=== PATIENT | male | born 1955 | race Caucasian/White ===

== ENCOUNTER 2024-12-17 14:54 | Emergency (ER) | payer MEDICARE, MEDICAID, SELFPAY ==
[2024-12-17 15:06] VITALS: BP 190/90; PULSE 90; O2SAT 98
[2024-12-17 15:15] VITALS: BP 136/63; PULSE 74; RESP 18; TEMP 36.8; O2SAT 97; BMI 19.8
--- NOTE | 2024-12-17 15:22 | ED_ITS ---
HPI - General Adult General Chief complaint: General Medical Stated complaint: RECTAL PAIN,HEMORRHOIDS PER EMS Time Seen by Provider: 12/17/24 23:55 Source: patient and other ([facility] ED visit 12/14/2024 and 12/17/2024) Mode of arrival: EMS Limitations: no limitations History of Present Illness ED Provider: Dr. Onofre Alfaro HPI narrative: 69-year-old male with a history coronary artery disease status post PCI, hyperlipidemia, hypertension, major depressive disorder, mood disorder, polysubstance use disorder (ETOH, opiates on Suboxone), bladder CA status post TURBT on 07/31/2025, currently undergoing chemotherapy, prior gastric perforation, known AAA, GERD, alcohol use disorder in remission, hemorrhoids who presents emergency department for evaluation of hemorrhoid pain, hemorrhoid bleeding and requesting admission [facility]. The patient was seen earlier today on 12/17/2024 at [facility] for evaluation of bleeding hemorrhoids, hemorrhoid pain and requesting to go to [facility]. I did review to records from [facility] ED visits from 12/14/2024 and from 12/17/2024. On his 1st visit he did have a physical therapy evaluation that has felt that he did not require acute rehab and was discharged home. On the 2nd visit on 12/17/2024 the note states that they did speak to their case management and he did not qualify for rehab and he was discharged. When patient got in the [facility] parking lot, he states that he was having a panic attack and called 911. He requested coming to [facility] for evaluation. He told me that his [id number] got him into the [facility]. He states he can not go home this evening because if he does, he will just return to the emergency department secondary to a panic attack. The patient does take diazepam 5 mg b.i.d.. He is requesting his outpatient medications therefore I ordered diazepam 5 mg orally, tamsulosin 0.4 mg orally and atorvastatin 20 mg orally. I did review the patient's 2 previous [facility] ED visits. Related Data Home Medications ?Medication ?Instructions ?Recorded ?Confirmed amlodipine 10 mg tablet 10 mg PO DAILY 12/18/24 12/18/24 atenolol 50 mg tablet 50 mg PO DAILY 12/18/24 12/18/24 atorvastatin 80 mg tablet 80 mg PO DAILY 12/18/24 12/18/24 buprenorphine 4 mg-naloxone 1 mg 0.5 film sublingual BID 12/18/24 12/18/24 sublingual film (Suboxone) carisoprodol 350 mg tablet 350 mg PO QID PRN pain 12/18/24 12/18/24 diazepam 5 mg tablet 5 mg PO BID PRN Anxiety 12/18/24 12/18/24 lidocaine 5 % topical cream 1 appl topical TID PRN Pain 12/18/24 12/18/24 phenylephrine 0.25 %-pramoxine 1 1 appl OK QID PRN Hemorrhoids 12/18/24 12/18/24 %-glycerin-wh.petrolatum rectal cream (Hemorrhoidal Cream) tamsulosin 0.4 mg capsule 0.4 mg PO DAILY 12/18/24 12/18/24 Allergies Allergy/AdvReac Type Severity Reaction Status Date / Time No Known Allergies Allergy Verified 12/17/24 15:17 [No Known Allergies*] Review of Systems 2 Review of Systems: Yes all other systems are reviewed and are negative [facility] Past Medical History [facility] Narrative: Social history: He lives at home alone. He denies tobacco and alcohol use. He does smoke marijuana for his anxiety. Social History Social History Smoked in Last 30 Days: No Use of substances other than those prescribed or required for medical reasons: No Advance Directives: No Advance Directives Information Provided: Yes Do you have a plan to hurt others: No Plan Physical Exam ED Vital Signs: Vital Signs - 24 hr 12/18/24 21:47 12/19/24 06:00 12/19/24 07:44 Temperature 98.5 F 97.8 F 98.1 F Pulse Rate 97 89 71 Respiratory Rate 16 17 17 Blood Pressure 120/66 128/72 117/65 Pulse Oximetry 97 98 98 Oxygen Delivery Method Room Air Room Air Room Air 12/19/24 08:32 12/19/24 09:22 12/19/24 14:00 Temperature 98.3 F Pulse Rate 73 Respiratory Rate 19 Blood Pressure 117/65 117/65 121/64 Pulse Oximetry 98 Oxygen Delivery Method Room Air BMI result Body Mass Index 19.8 Vital signs revealed an elevated blood pressure otherwise unremarkable Exam: General: Awake, alert in no distress, patient is very anxious Head: Normocephalic, atraumatic EENT: PERRL, Lids normal, sclera normal, conjunctiva normal, nose normal , ears normal, throat without erythema or exudates Neck: Supple, no adenopathy Lung: breath sounds symmetric, no wheezing, rales or rhonchi Chest: symmetric movement, nontender Heart: regular rate and rhythm, normal S1, S2 no murmurs or rubs Abdomen: soft, non-tender, nondistended, normal bowel sounds Rectal: patient has 1 hemorrhoid which is tender, in his not actively bleeding, hemorrhoid in his soft and not thrombosed, patient had brown stool which was Hemoccult negative Back: no vertebral tenderness, no CVAT Extremities: no deformities, moves all extremities symmetrically Neuro: Awake, alert, oriented, normal speech, cranial nerves intact, moves all extremities symmetrically Psych: Pleasant, anxious, cooperative Course Course Course Narrative: RME: 69 yold male presents to the ED requesting [facility]. patient has a bed awating him at the rehab, but could not get there. patient seen at [facility] today and was dsicahrged and called ambulance to bring him to [facility] Reevaluation(s) Reevaluation #1: Time: 08:23 Date: 12/19/24 Provider: JUAN PABLO Mejia Patient in physician observation for case management needs. case management has reached out to [facility] and they do not have a bed available for patient. Physical therapy has evaluated patient - no therapy recommendations at this time. No acute events reported overnight.? No current issues or complaints. VS stable. Patient is pending CM eval/disposition. Will continue to monitor. 12/19/24 [id number] JUAN PABLO Mejia from care team has evaluated and cleared patient. He does not meet criteria for admission. She feels he is safe for discharge. Please refer to her note for further details. I spoke with Jesi from case management who offered to arrange VNA services for patient tomorrow morning. patient initially agreeable. Now declining and would like to be discharged home. He is currently on the phone with his ride who is on his way to get him. His workup is reassuring. I have reviewed all labs /urine results. Unremarkable. I see no reason why patient cannot be discharged at this time. He has remained stable. alert, oriented and capable of making his own decisions. Advised patient to continue all home meds as prescribed and follow up with outpatient providers as planned. He is stable for discharge at this time. Physician observation ended at 1645. Medications Administered Generic Name Dose Route Start Last Admin Trade Name Joshua PRN Reason Stop Dose Admin Amlodipine Besylate 10 mg 12/19/24 09:00 12/19/24 08:32 Amlodipine Besylate 10 Mg Tablet PO 10 mg DAILY ANTONINA Administration Protocol Atenolol 50 mg 12/19/24 09:00 12/19/24 09:22 Atenolol 50 Mg Tablet PO 50 mg DAILY ANTONINA Administration Protocol Atorvastatin Calcium 80 mg 12/19/24 09:00 12/19/24 08:32 Atorvastatin Calcium 80 Mg Tablet PO 80 mg DAILY ANTONINA Administration Buprenorphine/Naloxone 1 film 12/18/24 21:00 12/19/24 08:33 Buprenorphine/Naloxone 2/0.5mg Film SUBLINGUAL 1 film BID ANTONINA Administration Diazepam 5 mg 12/18/24 20:31 12/19/24 05:26 Diazepam 5 Mg Tablet PO 5 mg BID PRN Administration Anxiety Lidocaine HCl 1 appl 12/18/24 20:31 12/19/24 16:34 Lidocaine 4 % Cream Kit TOPICAL 1 appl TID PRN Administration Pain, Mild (Pain Scale 1-3) Tamsulosin HCl 0.4 mg 12/19/24 09:00 12/19/24 08:33 Tamsulosin Hcl 0.4 Mg Capsule PO 0.4 mg DAILY ANTONINA Administration Discontinued Medications Generic Name Dose Route Start Last Admin Trade Name Joshua PRN Reason Stop Dose Admin Atorvastatin Calcium 20 mg 12/18/24 00:25 12/18/24 00:38 Atorvastatin Calcium 20 Mg Tablet PO 12/18/24 00:26 20 mg ONCE ONE Administration Buprenorphine/Naloxone 1 film 12/18/24 10:28 12/18/24 11:26 Buprenorphine/Naloxone 4/1 Mg Film SUBLINGUAL 12/18/24 10:29 1 film ONCE ONE Administration Diazepam 2 mg 12/18/24 00:25 12/18/24 00:38 Diazepam 2 Mg Tablet PO 12/18/24 00:26 2 mg ONCE ONE Administration Tamsulosin HCl 0.4 mg 12/18/24 00:25 12/18/24 00:38 Tamsulosin Hcl 0.4 Mg Capsule PO 12/18/24 00:26 0.4 mg ONCE ONE Administration Medical Decision Making Medical Decision Making MDM Narrative: 69-year-old male with a history coronary artery disease status post PCI, hyperlipidemia, hypertension, major depressive disorder, mood disorder, polysubstance use disorder (ETOH, opiates on Suboxone), bladder CA status post TURBT on 07/31/2025, currently undergoing chemotherapy, prior gastric perforation, known AAA, GERD, alcohol use disorder in remission, hemorrhoids who presents emergency department for evaluation of hemorrhoid pain, hemorrhoid bleeding and requesting admission to [facility] [place]. The patient was seen earlier today on 12/17/2024 at [facility] for evaluation of bleeding hemorrhoids, hemorrhoid pain and requesting to go to [facility] facility. I did review to records from [facility] ED visits from 12/14/2024 and from 12/17/2024. On his 1st visit he did have a physical therapy evaluation that has felt that he did not require acute rehab and was discharged home. On the 2nd visit on 12/17/2024 the note states that they did speak to their case management and he did not qualify for rehab and he was discharged. When patient got in the [facility] parking lot, he states that he was having a panic attack and called 911. He requested coming to [facility] for evaluation. He told me that his ywjpen-rq-ngp got him into the [facility]. He states he can not go home this evening because if he does, he will just return to the emergency department secondary to a panic attack. The patient does take diazepam 5 mg b.i.d.. He is requesting his outpatient medications therefore I ordered diazepam 5 mg orally, tamsulosin 0.4 mg orally and atorvastatin 20 mg orally. Vital signs were unremarkable. Exam is consistent with anxiety and a non thrombosed, nonbleeding hemorrhoid. Differential diagnosis: ?Includes but is not limited to anxiety, panic attack, thrombosed hemorrhoid, bleeding hemorrhoids Course: 00:28 Start physician observation Patient's exam is consistent with anxiety and a nonthrombosed, nonbleeding hemorrhoid. I ordered his outpatient medications: Diazepam 5 mg, atorvastatin 20 mg and tamsulosin 0.4 mg orally. The patient will be kept in the emergency department on physician observation until case management can evaluated in the morning to determine if he actually has a bed at [facility]. 07:55 Physician observation continued At the end of my shift, patient's care was turned over to my colleague, Dr. Leija Differential Diagnosis Differential Diagnoses: The differential diagnosis associated with the presentation includes Admission/Observation Consideration of admission/observation: Escalation of care including admission/observation considered (No) Lab Data 12/19/24 12:56 12/19/24 12:56 Labs: Lab Results 12/18/24 12/19/24 12/19/24 Range/Units 11:27 12:56 13:07 WBC 7.2 (4.8-10.8) X10*3/uL RBC 4.13 L (4.60-5.80) X10*6/uL Hgb 13.6 L (14.0-18.0) g/dl Hct 37.5 L (42.0-52.0) % MCV 90.8 (80.0-98.0) fL MCH 32.9 (27.0-33.0) pg MCHC 36.3 H (31.0-36.0) g/dl RDW 11.9 (11.0-16.0) % Plt Count 178 (160-400) X10*3/uL MPV 9.3 L (9.4-12.4) fL Immature Gran % (Auto) 0.1 (0.0-0.4) % Neut % (Auto) 62.8 (45-73) % Lymph % (Auto) 27.8 (20-40) % [place] % (Auto) 6.6 (2-11) % Eos % (Auto) 2.0 (0-4) % Baso % (Auto) 0.7 (0-2) % Lymph # (Auto) 2.0 (1.2-4.9) X10*3/uL [place] # (Auto) 0.5 (0.1-1.2) X10*3/uL Eos # (Auto) 0.1 (0.0-0.4) X10*3/uL Baso # (Auto) 0.1 (0.0-0.2) X10*3/uL Abs Immat Gran (auto) 0.01 (0.00-0.03) X10*3/uL Absolute Neuts (auto) 4.5 (2.0-8.3) x10*3/uL Absolute Nucleated RBC 0.000 (0.0-0.012) X10*3/uL Nucleated RBC % (auto) 0.0 (0.0-0.2) /100WBC Sodium 138 (135-145) mmol/L Potassium 4.0 (3.3-5.1) mmol/L Chloride 101 (96-108) mmol/L Carbon Dioxide 31 H (22-29) mmol/L Anion Gap 10 L (12-20) BUN 9 (9-16) mg/dL Creatinine 0.65 (0.5-1.4) mg/dL Estim Creat Clear Calc 89.7 Estimated GFR > 60 Random Glucose 167 H (60-115) mg/dL Calcium 9.5 (8.4-10.2) mg/dL Total Bilirubin 0.3 (0.0-1.0) mg/dL AST 28 (5-37) U/L ALT 27 (0-40) U/L Alkaline Phosphatase 89 (39-117) U/L Total Protein 6.6 (6.5-8.0) g/dL Albumin 4.2 (3.5-5.0) g/dL Urine Color Yellow Urine Appearance Turbid Urine pH 8.0 (5.0-9.0) Ur Specific [place] 1.010 (1.005-1.025) Urine Protein Negative (Neg-Trace) mg/dL Urine Glucose (UA) Negative (Negative) mg/dL Urine Ketones Negative (Negative) mg/dL Urine Blood Negative (Negative) Urine Nitrite Negative (Negative) Ur Leukocyte Esterase Trace H (Negative) Urine RBC 0-2 (0-2) /HPF Urine WBC 6-10 H (0-5) /HPF Ur Squamous Epith Cells 0-2 (0-2) /HPF Urine Bacteria 3+ (None Seen) Hyaline Casts 0-2 (0-2) /LPF Urine Opiates Screen Not Detected (Not Detect) Ur Buprenorphine Scrn Positive H (Not Detect) ng/mL Ur Oxycodone Screen Not Detected (Not Detect) ng/mL Urine Methadone Screen Not Detected (Not Detect) ng/mL Urine Fentanyl Screen Not Detected (Not Detect) Ur Barbiturates Screen Not Detected (Not Detect) Ur Phencyclidine Scrn Not Detected (Not Detect) Ur Amphetamines Screen Not Detected (Not Detect) U Benzodiazepines Scrn POSITIVE H (Not Detect) Urine Cocaine Screen Not Detected (Not Detect) U Marijuana (THC) Screen POSITIVE H (Not Detect) Influenza Type A (PCR) NEGATIVE (Negative) Influenza Type B (PCR) NEGATIVE (Negative) RSV RNA Qual (PCR) NEGATIVE (Negative) SARS-CoV-2 RNA (RT-PCR) NEGATIVE (Negative) Discharge Plan Discharge Clinical Impression: Anxiety, Bladder cancer, External hemorrhoids, Panic attack Patient Disposition: Home, Self-Care Instructions: Bladder Cancer (DC), Anxiety (ED) Additional Instructions: Your workup is reassuring. You were evaluated by physical therapy and do not meet criteria for therapy. You have been seen and cleared by care team/ psych. Case management has offered to arrange VNA services for you however you are declining and would like to be discharged. Please continue all home medications as prescribed. Follow up with your outpatient providers as planned. Prescriptions: No Action carisoprodol 350 mg tablet 350 mg PO QID PRN (Reason: pain) atorvastatin 80 mg tablet 80 mg PO DAILY lidocaine 5 % cream 1 appl topical TID PRN (Reason: Pain) tamsulosin 0.4 mg capsule 0.4 mg PO DAILY amlodipine 10 mg tablet 10 mg PO DAILY atenolol 50 mg tablet 50 mg PO DAILY diazepam 5 mg tablet 5 mg PO BID PRN (Reason: Anxiety) buprenorphine-naloxone [Suboxone] 4-1 mg film 0.5 film sublingual BID Hemorrhoidal Cream 0.25-1 % Cream 1 appl OK QID PRN (Reason: Hemorrhoids) Referrals: Randy Elise MD [Primary Care Provider] - Print Language: Ivorian
[2024-12-18] VITALS (7 sets, daily range): BP systolic 120–163; BP diastolic 60–90; PULSE 82–120; RESP 16–20; TEMP 36.5–36.9; O2SAT 97–100
[2024-12-18] MEDS: Atorvastatin Calcium 20 MG TABLET PO (00:38)
[2024-12-18] MEDS: Tamsulosin HCL 0.4 MG CAPSULE PO (00:38)
[2024-12-18] MEDS: diazePAM 2 MG TABLET PO (00:38)
--- NOTE | 2024-12-18 07:53 | PC.NURSE ---
Pt is sleeping. NAd. CHEST RISE noted. Skin pwd.
--- NOTE | 2024-12-18 09:16 | PC.NURSE ---
Pt has been ambulatory this am, taking his own home meds and eating breakfast. Awaits CM consult.
--- NOTE | 2024-12-18 10:44 | PC.NURSE ---
Pt has on and off toilet repeatedly. Reports self-disempacting and then flushed gloves down the toilet. Pt has a hemmroid. Pt has been increasing requests for wiping anus. Also reports dizziness but is able to ambulate once told that his bed will be brought to him in hallway.
--- NOTE | 2024-12-18 10:59 | MHC.CM.ED ---
Addendum entered by Jesi Johnson 12/19/24 12:54: Office visit note provided from Dr Villegas's office. Patient was last seen on 11/29 for his 6th and final chemo that was instilled in the bladder for 2 hours. Original Note: Received case management consult overnight from Dr Alfaro. Patient was in [facility] ER and was d/c'd home. Patient felt an anxiety attack come on and came to [facility]. Patient stated he has a bed at [facility]. Referral made to [facility]. [facility] does not have a bed available for him. Met with patient in regards to discharge planning. Patient states he was supposed to be sent to rehab from [facility] multiple times but hasn't been. Patient made aware [facility] does not have a bed. Patient states he has cancer and can't go home. Physical therapy eval is pending. PCP verified at [facility]. Patient receives suboxone from [facility] in [facility]. States he has been a patient there for 7 years. Patient aware placement may be difficult to find due to suboxone. Patient aware placement can be anywhere in the state of [facility]. Patient verbalizes understanding and is agreeable. [facility]. Continue to monitor for d/c needs.
[2024-12-18] MEDS: Buprenorphine/Naloxone 4/1 mg FILM 1 FILM SUBLINGUAL (11:26)
[2024-12-18 12:12] LABS: Influenza A PCR NEGATIVE (Negative); Influenza B PCR NEGATIVE (Negative); Resp Syncy Virus RNA Qual PCR NEGATIVE (Negative); SARS COV2 PCR INHOUSE NEGATIVE (Negative)
--- NOTE | 2024-12-18 18:25 | PHA.MEDREC ---
Addendum entered by Ivone Duncan [facility] 12/18/24 20:21: reviewed by [facility] Addendum entered by Sherry Baldwin 12/18/24 18:56: Went to speak with patient about the stool softener and the patient was adamant that it was a stool softener starting with a T and stated he got it prescribed when he was recently discharged from [facility] with a witch-pascual liquid and was filling them at [facility] on [address] in [place]. I called [facility] and they confirmed they received a Miralax and Witch-pascual liquid from [facility] but they had to order it for the patient and stated the patient has not picked them up yet. Original Note: Pharmacy Consult ? Medication Reconciliation Pharmacy has completed the medication reconciliation. Spoke with patient who was very anxious and all over the place but we managed to be able to confirm his medications. Patient confirmed he his taking the Suboxone 4mg-1mg films and states he cuts the films in half and takes 1/2 film (2mg) twice a day. Patient also stated he is taking a stool softener that started with a T, but could not think of the name at this time. When asking patient when he last took his medications, the patient got very confused and starting rambling on about his Dr and how his stay here has been.
[2024-12-19] MEDS: diazePAM 5 MG TABLET PO (05:26)
--- NOTE | 2024-12-19 05:30 | PC.NURSE ---
Pt wakes up and reports taking own meds from home this morning. Pt advised not to so as we will medicate pt from the pyxis. Pt states having home medication bottles and was not aware that pharmacy hold meds. Six medication bottles to be given to pharmacy. Pt is aware of plan of care. Pt then medicated as per OCT. Pt tolerated well.
[2024-12-19 06:00] VITALS: BP 128/72; PULSE 89; RESP 17; TEMP 36.6; O2SAT 98
[2024-12-19 07:44] VITALS: BP 117/65; PULSE 71; RESP 17; TEMP 36.7; O2SAT 98
[2024-12-19 08:32] VITALS: BP 117/65
[2024-12-19] MEDS: Atorvastatin Calcium 80 MG TABLET PO (08:32)
[2024-12-19] MEDS: amLODIPine Besylate 10 MG TABLET PO (08:32)
[2024-12-19] MEDS: Tamsulosin HCL 0.4 MG CAPSULE PO (08:33)
[2024-12-19] MEDS: Buprenorphine/Naloxone 2/0.5mg FILM 1 FILM SUBLINGUAL (08:33)
--- NOTE | 2024-12-19 09:14 | MHC.CM.ED ---
Patient remains in ER overflow. Spoke with LOLI Mercedes CM at [facility]. Mago met with patient on 12/17. Patient was adament that he needed to go to [facility]. Mago explained there wasn't a need for rehab and that he could call them himself to get on their LTC list. Patient requested a hospice referral for end of life care for cancer. Patient has a diagnosis of Bladder cancer. Had a TURP approximately 6 months ago and just finished chemo treatment. Patient needs to follow up outpatient with his oncologist but is not terminal at this time. Patient verbalized understanding at that time and d/c'd home. T/W is attempted to identify oncologist and plan of care. Continue to monitor for d/c needs.
[2024-12-19 09:22] VITALS: BP 117/65
[2024-12-19] MEDS: atenoloL 50 MG TABLET PO (09:22)
--- NOTE | 2024-12-19 12:41 | MHC.CM.ED ---
Patient remains in ER overflow. Received notification that patient does not have [facility]. Patient has [facility] Premium, which does not cover half-way stays at SNF. Met with patient to explain this information. Patient found ambulating independently in the overflow unit from the bathroom with a steady gait. T/W explained physical therapy eval was completed, which did not indicate a need for skilled services. Also explained status of [facility]. Also explained patient could privately pay for SNF placement cost and expectations. Patient stated they can bill me. T/W explained that was not a possibility. Any long-term facility would want payment up front. Patient requested T/W speak to his sign language translator, Rashard Barragan. Spoke with Rashard via telephone at [phone]. Rashard confirms he is patient's pro kemal sign language translator that is helping him. T/W explained patient was at [facility] and was d/c'd. Explained patient stated Rashard would be able to help with funds. Rashard requesting to know who felt SNF placement was not appropriate. T/W explained patient did not have a Medicare Rashard feels patient needs a psych consult and is not well . Rashard states patient has been going through things and has been calling non-stop for the past month. Rashard thinks he's paranoid and might have dementia. T/W explained someone with dementia doesn't need they need inpatient psych. Rashard stated Have psych see him and then we'll talk. T/W was passed onto Katelynn ALMEIDA. Care Team Consult ordered. Spoke with Susi of Care Team to provider information on patient. Continue to monitor for d/c needs.
[2024-12-19 13:04] LABS: MANUAL DIFF FLAG NO
[2024-12-19 13:10] LABS: Basophils Absolute Auto 0.1 X10*3/uL (0.0-0.2); Basophils Percent Auto 0.7 % (0-2); Eosinophils Absolute Auto 0.1 X10*3/uL (0.0-0.4); Hematocrit 37.5 % (42.0-52.0); Hemoglobin 13.6 g/dl (14.0-18.0); Imm Gran Abs Auto 0.01 X10*3/uL (0.00-0.03); Imm Gran Pct Auto 0.1 % (0.0-0.4); Lymphocytes Percent Auto 27.8 % (20-40); Mean Corpuscular HGB Conc 36.3 g/dl (31.0-36.0); Mean Corpuscular Hemoglobin 32.9 pg (27.0-33.0); Mean Corpuscular Volume 90.8 fL (80.0-98.0); Mean Platelet Volume 9.3 fL (9.4-12.4); Monocytes Absolute Auto 0.5 X10*3/uL (0.1-1.2); Monocytes Percent Auto 6.6 % (2-11); Neutrophils Absolute Auto 4.5 x10*3/uL (2.0-8.3); Neutrophils Percent Auto 62.8 % (45-73); Platelet Count 178 X10*3/uL (160-400); Red Blood Count 4.13 X10*6/uL (4.60-5.80); Red Cell Distribution Width 11.9 % (11.0-16.0); White Blood Count 7.2 X10*3/uL (4.8-10.8)
[2024-12-19 13:20] LABS: Appearance Urine Turbid; Color Urine Yellow; Glucose Urine UA Negative (Negative); Leukocyte Esterase Urine Trace (Negative); Nitrite Urine Negative (Negative); UMIC TRIGGER UACC YES; Urine Blood Negative (Negative); Urine Ketones Negative (Negative); Urine Protein Negative (Neg-Trace)
[2024-12-19 13:20] LABS: Alanine Aminotransferase 27 U/L (0-40); Albumin Level 4.2 g/dL (3.5-5.0); Alkaline Phosphatase 89 U/L (39-117); Anion Gap 10 (12-20); Aspartate Amino Transferase 28 U/L (5-37); Bilirubin Total 0.3 mg/dL (0.0-1.0); Blood Urea Nitrogen 9 mg/dL (9-16); Calcium 9.5 mg/dL (8.4-10.2); Carbon Dioxide 31 mmol/L (22-29); Chloride 101 mmol/L (96-108); Creatinine Clr Calc Pharmacy 89.7; Estimated Glomerular Filt Rate > 60; Glucose Random 167 mg/dL (60-115); Sodium 138 mmol/L (135-145); Total Protein 6.6 g/dL (6.5-8.0)
[2024-12-19 13:28] LABS: Amphetamine Screen Urine Not Detected (Not Detect); Barbiturates, Urine Not Detected (Not Detect); Benzodiazepines Screen Urine POSITIVE (Not Detect); Buprenorphine Scr Positive (Not Detect); Cannabinoid Screen Urine POSITIVE (Not Detect); Cocaine Screen Urine Not Detected (Not Detect); Fentanyl, urine Not Detected (Not Detect); Methadone Screen, Urine Not Detected (Not Detect); Opiate Screen Urine Not Detected (Not Detect); Oxycodone Screen Urine Not Detected (Not Detect); Phencyclidine Screen Urine Not Detected (Not Detect)
[2024-12-19 13:30] LABS: Bacteria Urine 3+ (None Seen); Hyaline Casts Urine 0-2 /LPF (0-2); RBC Urine 0-2 /HPF (0-2); Squamous Epithelial Cell Urine 0-2 /HPF (0-2); UACC Culture Trigger YES
--- NOTE | 2024-12-19 13:33 | PC.NURSE ---
Received a call from Tha Mckeon from [facility] inquiring about Rub[facility] D/C plan. I asked and received verbal consent from [facility] to provide the [facility] [employer] Tha name and phone number to discuss his D/C plan and possible resumption of Suboxone therapy.
[2024-12-19 14:00] VITALS: BP 121/64; PULSE 73; RESP 19; TEMP 36.8; O2SAT 98
--- NOTE | 2024-12-19 14:15 | MHC.CM.ED ---
Received request to call Tha Mckeon of [facility] via telephone at [phone]. Verbal consent given by patient. Spoke with Tha. Tha verifies patient has been active with them for 7 years. Tha has been trying to arrange VNA, MOW and home health aides. Patient's PCP's office has not been willing to arrange VNA because patient has not seen him recently. [facility] was scheduled to meet with patient on 12/12. Patient had to reschedule. Tha is not sure when that new appointment is scheduled for. Tha feels patient has been more forgetful recently and has been misplacing prescriptions, is unable to to remember that his chemo treatment is complete and he needs to follow up outpatient and has been overall anxious in general. T/w explained Crisis eval would be completed. Also explained patient passed physcial therapy eval and that patient has been ambulating independently in overflow. T/W also explained patient has [facility] Premium only. Patient would require 5 years of bank statements and other documents that would be [facility]. Tha verbalized understanding. Continue to monitor for d/c needs.
--- NOTE | 2024-12-19 14:52 | MHC.CARE ---
Pt does not meet the criteria for IPLOC and is declining a referral to OP services at this time. Pt will be discharged home. Provider in agreement.
[2024-12-19] MEDS: Lidocaine 4 % Cream KIT 1 APPL TOPICAL (16:34)
[2024-12-19 16:48] VITALS: BP 121/64; PULSE 73; RESP 19; TEMP 36.8; O2SAT 98
--- NOTE | 2024-12-19 17:53 | PC.NURSE ---
Addendum entered by Sarai Cintron RN 12/19/24 18:23: Pt Medication Storage Record completed with SARAH Carvalho. Pts friend Rubén Delgado arrives at [facility] prior to medications being delivered to Pharmacy Dpt. Rubén presents positive ID for medication retrieval. Copy of Rubén Delgado's ID attached to Pt medication storage record and placed to be filed. Custody of Pts medications relinquished to Rubén Delgado per request of Pt. Original Note: Pt d/c'd without his personal medication supply. Call placed to Pt and Pt reports he is aware. Pt states he is unable to leave the house because he has cancer and plans to have a friend by the name of Rubén Delgado. Patient advised friend will need valid ID present at time of picker tender helper in order to have meds released. Medications will be inventoried and sent to pharmacy for safe keeping.
--- NOTE | 2024-12-20 07:39 | MHC.CM.ED ---
Addendum entered by Jesi Johnson 12/20/24 10:09: [facility] is only agency that is able to accept patient. Original Note: Patient was d/c'd home last night. VNA will be arranged for mcc and behavior health assistance. Referral broadcasted.
--- NOTE | 2024-12-20 12:13 | MHC.CM.ED ---
Received notification that [facility] is banned from their agency. Waiting to hear if any other agency is able to accept him.
--- NOTE | 2024-12-23 07:32 | MHC.CM.ED ---
Patient [facility] has been able to accept patient. CM medical assistant supervisor will be asked to reach out to PCP's office for follow up.
== END 2024-12-19 16:58 | disposition home or self-care (01) ==
PROVIDERS: Physician Assistant Medical; Emergency Provider Emergency Medicine Emergency Medical Services; PCP Internal Medicine
DX: F41.0 Panic disorder [episodic paroxysmal anxiety] (principal); F41.9 Anxiety disorder, unspecified; K64.4 Residual hemorrhoidal skin tags; C67.9 Malignant neoplasm of bladder, unspecified; Z03.818 Encounter for observation for suspected exposure to other biological agents ruled out; F11.20 Opioid dependence, uncomplicated; Z79.899 Other long term (current) drug therapy
CPT/HCPCS: 0241U; 36415; 80053; 80307; 81001; 85025; 87086; 97161; 99285; S9485

== ENCOUNTER 2024-12-25 15:52 | Inpatient (IN) | payer MEDICARE, OTHER, SELFPAY ==
[2024-12-25 16:04] VITALS: BP 132/76; PULSE 86; O2SAT 96
[2024-12-25 16:08] VITALS: BP 141/70; PULSE 67; RESP 14; TEMP 36.6; O2SAT 96; BMI 19.5
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
[2024-12-25 17:04] LABS: MANUAL DIFF FLAG NO
[2024-12-25 17:06] LABS: Basophils Absolute Auto 0.1 X10*3/uL (0.0-0.2); Basophils Percent Auto 0.7 % (0-2); Eosinophils Absolute Auto 0.1 X10*3/uL (0.0-0.4); Eosinophils Percent Auto 1.2 % (0-4); Hematocrit 37.4 % (42.0-52.0); Hemoglobin 13.3 g/dl (14.0-18.0); Imm Gran Abs Auto 0.03 X10*3/uL (0.00-0.03); Imm Gran Pct Auto 0.4 % (0.0-0.4); Lymphocytes Absolute Auto 2.3 X10*3/uL (1.2-4.9); Lymphocytes Percent Auto 31.5 % (20-40); Mean Corpuscular HGB Conc 35.6 g/dl (31.0-36.0); Mean Corpuscular Hemoglobin 32.8 pg (27.0-33.0); Mean Corpuscular Volume 92.3 fL (80.0-98.0); Mean Platelet Volume 9.2 fL (9.4-12.4); Monocytes Absolute Auto 0.6 X10*3/uL (0.1-1.2); Monocytes Percent Auto 7.8 % (2-11); Neutrophils Absolute Auto 4.3 x10*3/uL (2.0-8.3); Neutrophils Percent Auto 58.4 % (45-73); Platelet Count 193 X10*3/uL (160-400); Red Blood Count 4.05 X10*6/uL (4.60-5.80); Red Cell Distribution Width 11.9 % (11.0-16.0); White Blood Count 7.3 X10*3/uL (4.8-10.8)
[2024-12-25 17:43] LABS: Alanine Aminotransferase 31 U/L (0-40); Albumin Level 4.4 g/dL (3.5-5.0); Anion Gap 10 (12-20); Aspartate Amino Transferase 30 U/L (5-37); Bilirubin Direct 0.1 mg/dL (0.0-0.5); Bilirubin Total 0.3 mg/dL (0.0-1.0); Blood Urea Nitrogen 11 mg/dL (9-16); Calcium 9.6 mg/dL (8.4-10.2); Carbon Dioxide 30 mmol/L (22-29); Chloride 104 mmol/L (96-108); Creatinine Clr Calc Pharmacy 91.1; Estimated Glomerular Filt Rate > 60; Ethanol < 10 mg/dL; Glucose Random 94 mg/dL (60-115); Magnesium 2.1 mg/dL (1.6-2.6); Potassium 4.2 mmol/L (3.3-5.1); Sodium 140 mmol/L (135-145); Total Protein 6.9 g/dL (6.5-8.0)
[2024-12-25 18:07] LABS: Alkaline Phosphatase 78 U/L (39-117)
[2024-12-25 18:09] VITALS: BP 155/75
[2024-12-25] MEDS: LORazepam 1 MG TABLET PO (18:17)
[2024-12-25 19:47] VITALS: BP 104/57; PULSE 70; RESP 19; TEMP 37.1; O2SAT 97
[2024-12-25 20:25] LABS: Amphetamine Screen Urine Not Detected (Not Detect); Barbiturates, Urine Not Detected (Not Detect); Benzodiazepines Screen Urine POSITIVE (Not Detect); Buprenorphine Scr Positive (Not Detect); Cannabinoid Screen Urine POSITIVE (Not Detect); Cocaine Screen Urine Not Detected (Not Detect); Fentanyl, urine Not Detected (Not Detect); Methadone Screen, Urine Not Detected (Not Detect); Opiate Screen Urine Not Detected (Not Detect); Oxycodone Screen Urine Not Detected (Not Detect); Phencyclidine Screen Urine Not Detected (Not Detect)
--- NOTE | 2024-12-25 20:30 | MHC.CARE ---
NIK contacted the care team and indicated that pt will be an expect and they are recommending IPLOC. N will send eval when completed.
[2024-12-25 22:35] VITALS: BP 116/53; PULSE 75; RESP 16; TEMP 36.6; O2SAT 100
[2024-12-26] MEDS: Tamsulosin HCL 0.4 MG CAPSULE PO ×2 (00:18→08:56)
[2024-12-26 06:08] VITALS: RESP 16
--- NOTE | 2024-12-26 08:03 | ECG_ITS ---
Test Reason : ADMISSION Blood Pressure : */* mmHG Vent. Rate : 92 BPM Atrial Rate : 92 BPM P-R Int : 150 ms QRS Dur : 80 ms QT Int : 344 ms P-R-T Axes : 78 78 75 degrees QTcB Int : 425 ms Normal sinus rhythm Minimal voltage criteria for LVH, may be normal variant ( Sokolow-Olivia ) Borderline ECG No previous ECGs available Referred By: Pacheco Tom Electronically Signed By: PETER BRIAN MD
[2024-12-26 08:56] VITALS: BP 115/62; PULSE 92; RESP 16; O2SAT 93
[2024-12-26] MEDS: atenoloL 50 MG TABLET PO (08:56)
[2024-12-26] MEDS: amLODIPine Besylate 10 MG TABLET PO (08:56)
[2024-12-26] MEDS: Buprenorphine/Naloxone 4/1 mg FILM 1 FILM SUBLINGUAL (08:57)
[2024-12-26] MEDS: Atorvastatin Calcium 80 MG TABLET PO (08:57)
[2024-12-26] MEDS: carisoprodoL 350 MG TABLET PO ×2 (09:21→20:46)
[2024-12-26] MEDS: diazePAM 5 MG TABLET PO ×2 (10:09→17:38)
[2024-12-26 12:36] LABS: Appearance Urine Cloudy; Color Urine Yellow; Glucose Urine UA Negative (Negative); Leukocyte Esterase Urine Moderate (2+) (Negative); Nitrite Urine Negative (Negative); Specific Gravity - Urine 1.015 (1.005-1.025); UMIC TRIGGER UACC YES; Urine Blood Negative (Negative); Urine Ketones Trace mg/dL (Negative); Urine Protein Trace mg/dL (Neg-Trace)
[2024-12-26 12:39] LABS: Bacteria Urine 4+ (None Seen); Hyaline Casts Urine 0-2 /LPF (0-2); RBC Urine 0-2 /HPF (0-2); Squamous Epithelial Cell Urine 0-2 /HPF (0-2); UACC Culture Trigger YES; WBC Urine 21-50 /HPF (0-5)
--- NOTE | 2024-12-26 12:42 | PC.NURSE ---
pt has been pleasant and cooperative all morning, in and out of room, played cards with another pt. medicated as ordered, ate breakfast,
--- NOTE | 2024-12-26 13:05 | PHA.MEDREC ---
Addendum entered by Amado Salvador 12/26/24 13:19: reviewed Original Note: Pharmacy Consult ? Medication Reconciliation Pharmacy reviewed the med rec done by nursing. Spoke with patient and he confirmed his medications. Patient stated he cuts his Suboxone 4-2mg films in half and takes 1/2 film BID due to it being too hard taking a full film for him. He stated he takes the Atorvastatin and Tamsulosin tablets at bedtime and nurse had confirmed them as daily.
[2024-12-26 14:04] VITALS: BP 160/85; PULSE 68; RESP 16; TEMP 36.5; O2SAT 98
--- NOTE | 2024-12-26 15:56 | MHC.CLN ---
NUTRITION ROUTINE CONSULT. NO PRIOR WEIGHT HX VIEWED. ASSESSMENT NOTES 34# OR MORE WEIGHT LOSS. BMI=19.5. ADDING ENSURE BID TO PROMOTE NUTRITIONAL INTAKE.
--- NOTE | 2024-12-26 16:03 | MHC.CLN ---
NUTRITION CONSULT FOR DX CANCER WITH 100# WEIGHT LOSS X 12 MONTHS. DIET=REGULAR. ADDING ENSURE TID TO PROVIDE 1050 KCALS, 60 G PROTEIN. DINING SERVICES CAN ASSIST WITH FOOD CHOICES NEEDED.
[2024-12-26 16:14] VITALS: BMI 18.8
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
[2024-12-26] MEDS: Hydrocortisone 2.5 % Rectal Cr 30 GM TUBE 1 APPL PR (18:04)
[2024-12-26] MEDS: Lidocaine 5 % Ointment 35 GM 1 APPL TOPICAL (18:07)
[2024-12-26 20:10] VITALS: BP 115/58; PULSE 73; TEMP 36.5; O2SAT 99
[2024-12-26] MEDS: hydrOXYzine HCL 25 MG TABLET PO (20:46)
[2024-12-27 07:51] VITALS: BP 129/64; PULSE 93; RESP 16; TEMP 36.6; O2SAT 98
[2024-12-27 08:00] LABS: Estimated Average Glucose 117 mg/dL; Hemoglobin A1c % 5.7 % (<6.0); Total Hemoglobin (HGBA1C) 3794.1497 umol/L
[2024-12-27 08:11] LABS: Cholesterol 91 mg/dL (<200); HDL Cholesterol 48 mg/dL (>40); LDL Cholesterol Calculated 31 mg/dL (<100); Triglycerides 63 mg/dL (<150)
[2024-12-27 08:26] LABS: Free T4 (Free Thyroxine) 1.12 ng/dL (0.71-1.85); Thyroid Stimulating Hormone 0.61 uIU/mL (0.32-4.0)
[2024-12-27 08:40] LABS: Folate 14.6 ng/mL (> or = 4.0); Vitamin B12 1038 pg/mL (200-900)
[2024-12-27] MEDS: Atorvastatin Calcium 80 MG TABLET PO (09:14)
[2024-12-27] MEDS: Tamsulosin HCL 0.4 MG CAPSULE PO ×2 (09:14→20:30)
[2024-12-27] MEDS: Buprenorphine/Naloxone 4/1 mg FILM 1 FILM SUBLINGUAL (09:15)
[2024-12-27] MEDS: Lidocaine 5 % Ointment 35 GM 1 APPL TOPICAL ×2 (09:16→18:06)
[2024-12-27 09:26] VITALS: BP 134/72; PULSE 114
[2024-12-27] MEDS: atenoloL 50 MG TABLET PO (09:26)
[2024-12-27] MEDS: amLODIPine Besylate 10 MG TABLET PO (09:26)
[2024-12-27] MEDS: Milk of Magnesia 30 ML ORAL.SUSP PO (10:47)
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
[2024-12-27] MEDS: Hydrocortisone 2.5 % Rectal Cr 30 GM TUBE 1 APPL PR (18:06)
[2024-12-27 20:00] VITALS: BP 113/58; PULSE 68; TEMP 36.6; O2SAT 97
[2024-12-27] MEDS: hydrOXYzine HCL 25 MG TABLET PO (20:30)
[2024-12-27] MEDS: traZODone HCL 50 MG TABLET PO (20:30)
[2024-12-28 07:41] VITALS: BP 127/61; PULSE 74; RESP 16; TEMP 36.9; O2SAT 98
[2024-12-28] MEDS: Atorvastatin Calcium 80 MG TABLET PO (08:36)
[2024-12-28] MEDS: atenoloL 50 MG TABLET PO (08:36)
[2024-12-28] MEDS: amLODIPine Besylate 10 MG TABLET PO (08:37)
[2024-12-28] MEDS: Buprenorphine/Naloxone 2/0.5mg TAB.SUBL 1 TAB SUBLINGUAL (11:07)
--- NOTE | 2024-12-28 13:48 | P.PNPSI_ITS ---
Subjective Subjective Date of Service: 12/28/24 Reason For Visit: SI/depression Interim History: Active on unit. social with peers. Patient reports feeling better than when I got here ; continues to report suicidal ideation, did not disclose plan. denies HI/VH/AH. Rapid speech. rambling at times. Medication Compliance: Yes Side effects from medications: No Mental Status Exam Mental Status Exam Patient Appearance: Appropriate Patient Orientation: Person, Place, Time and Situation Level of Consciousness: Awake and Alert Patient Behavior: Cooperative and Good Eye Contact Mood Description: Depressed Affect Description: Constricted Ability to Follow Directions: Good Speech Pattern: Rambling, Rapid and Loud Hallucinations: None Delusions: Not Present Thought Process: Intact and Racing Thought Content: positive for Intact and positive for Suicidal Ideation Diagnostics Vital Signs (24Hr): Vital Signs - 24 hr 12/27/24 20:00 12/28/24 07:41 Temperature 97.9 F 98.4 F Pulse Rate 68 74 Respiratory Rate 16 Blood Pressure 113/58 L 127/61 Pulse Oximetry 97 98 Oxygen Delivery Method Room Air Room Air BMI result Body Mass Index 18.8 Labs 12/25/24 17:00 12/25/24 17:00 Labs: Laboratory Results - last 48 hr 12/27/24 12/27/24 07:41 07:42 Estimat Average Glucose 117 Hemoglobin A1c % 5.7 Triglycerides 63 Cholesterol 91 LDL Cholesterol, Calc 31 HDL Cholesterol 48 Vitamin B12 1038 H Folate 14.6 TSH 0.61 Free T4 1.12 Medications Medications Current Medications Acetaminophen (Acetaminophen 325 Mg Tablet) 650 mg PO Q6H PRN PRN Reason: Headache/Pain, Scale 1-10 Al Hydroxide/Mg Hydroxide (Magnesium Hydrox/Alum Hydrox 30 Ml Oral.Susp) 30 ml PO Q6H PRN PRN Reason: Heartburn/Nausea Amlodipine Besylate (Amlodipine Besylate 10 Mg Tablet) 10 mg PO DAILY [facility]; Protocol Last Admin: 12/28/24 08:37 Dose: 10 mg Atenolol (Atenolol 50 Mg Tablet) 50 mg PO DAILY [facility]; Protocol Last Admin: 12/28/24 08:36 Dose: 50 mg Atorvastatin Calcium (Atorvastatin Calcium 80 Mg Tablet) 80 mg PO DAILY [facility] Last Admin: 12/28/24 08:36 Dose: 80 mg Buprenorphine/Naloxone (Buprenorphine/Naloxone 2/0.5mg Film) 1 film SUBLINGUAL BID@0600,1500 [facility] Carisoprodol (Carisoprodol 350 Mg Tablet) 350 mg PO QID PRN PRN Reason: Pain, Moderate(Pain Scale 4-6) Last Admin: 12/26/24 20:46 Dose: 350 mg Diazepam (Diazepam 5 Mg Tablet) 5 mg PO BID PRN PRN Reason: Anxiety Last Admin: 12/26/24 17:38 Dose: 5 mg Hydrocortisone (Hydrocortisone 2.5 % Rectal Cr 30 Gm Tube) 1 appl AL BID PRN PRN Reason: Hemorrhoids Last Admin: 12/27/24 18:06 Dose: 1 appl Hydroxyzine HCl (Hydroxyzine Hcl 25 Mg Tablet) 25 mg PO Q6H PRN PRN Reason: mild anxiety Last Admin: 12/27/24 20:30 Dose: 25 mg Lidocaine (Lidocaine 5 % Ointment 35 Gm) 1 appl TOPICAL TID PRN PRN Reason: Pain Last Admin: 12/27/24 18:06 Dose: 1 appl Magnesium Hydroxide (Milk Of Magnesia 30 Ml Oral.Susp) 30 ml PO DAILY PRN PRN Reason: Constipation Last Admin: 12/27/24 10:47 Dose: 30 ml Nicotine Polacrilex (Nicotine Polacrilex 2 Mg Gum) 4 mg BUCCAL Q2H PRN PRN Reason: Nicotine Cravings Tamsulosin HCl (Tamsulosin Hcl 0.4 Mg Capsule) 0.4 mg PO BEDTIME [facility] Last Admin: 12/27/24 20:30 Dose: 0.4 mg Trazodone HCl (Trazodone Hcl 50 Mg Tablet) 50 mg PO BEDTIME MRX1 PRN PRN Reason: Insomnia Last Admin: 12/27/24 20:30 Dose: 50 mg Allergies Allergies Allergy/AdvReac Type Severity Reaction Status Date / Time No Known Allergies Allergy Verified 12/25/24 16:31 [No Known Allergies*] Assessment & Plan Assessment & Plan (1) Suicidal ideation: Status: Acute Code(s): R45.851 - Suicidal ideations (2) Adjustment disorder: Status: Acute Code(s): F43.20 - Adjustment disorder, unspecified (3) Opioid use disorder: Status: Acute Code(s): F11.90 - Opioid use, unspecified, uncomplicated Plan pt not interested in med changes. continue suboxone, valium, soma. refer for outpt F/U. improved mood now that he has spoken with his son and knows son has not spurned him again. 12/28: Active on unit. social with peers. Patient reports feeling better than when I got here ; continues to report suicidal ideation, did not disclose plan. denies HI/VH/AH. Rapid speech. rambling at times. Continue current tx plan. Patient educated on: diagnosis and medication risk/benefits Reason for continued inpatient stay Substantial Risk for: harm to self and med/psych decompensation Time Spent With Patient Time: Total time managing care of this patient today _20___ minutes.
--- NOTE | 2024-12-28 15:01 | MHC.CLN ---
F/U VISITED PATIENT ON UNIT. 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 WILL DECREASE ENSURE TO BID PER CONVERSATION. NO REPORTED CONCERNS WITH APPETITE. PLEASE CONSULT RD IF POOR PO.
[2024-12-28] MEDS: Buprenorphine/Naloxone 2/0.5mg FILM 1 FILM SUBLINGUAL (15:50)
[2024-12-28] MEDS: Hydrocortisone 2.5 % Rectal Cr 30 GM TUBE 1 APPL PR (15:51)
[2024-12-28] MEDS: Lidocaine 5 % Ointment 35 GM 1 APPL TOPICAL (15:51)
[2024-12-28] MEDS: carisoprodoL 350 MG TABLET PO (17:17)
[2024-12-28] MEDS: Lidocaine 4 % Patch ADH..PATCH 1 PATCH TRANSDERMA (17:24)
[2024-12-28 19:51] VITALS: BP 114/60; PULSE 75; RESP 16; TEMP 36.6; O2SAT 98
[2024-12-28] MEDS: Tamsulosin HCL 0.4 MG CAPSULE PO (20:13)
[2024-12-28] MEDS: diazePAM 5 MG TABLET PO (20:13)
[2024-12-29] MEDS: Buprenorphine/Naloxone 2/0.5mg FILM 1 FILM SUBLINGUAL ×2 (05:49→15:03)
--- NOTE | 2024-12-29 07:26 | HO.PSYCHPN ---
Subjective Subjective Date of Service: 12/29/24 Reason For Visit: SI/depression Subjective Notes: Conditional Voluntary Interim History: Met with patient. Discussed with Nursing. Slept 7 hours. Utilizing walker. Isolative. However is getting brighter and attending more groups. 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 Feeling better getting out into the milieu. Gaining weight. Sleep is okay. Feeling positive he connected with his son. No SI. No medication concerns Medication Compliance: Yes Side effects from medications: No Attending Groups: Intermittent Review of Systems Acute medical concerns: No Review of Systems Review of Systems nothing acute Mental Status Exam Mental Status Exam Patient Appearance: Appropriate Patient Orientation: Person, Place, Time and Situation Level of Consciousness: Awake and Alert Patient Behavior: Cooperative and Good Eye Contact Mood Description: Depressed ( less) Affect Description: Constricted ( less) Ability to Follow Directions: Good Speech Pattern: Rambling, Rapid and Loud Hallucinations: None Delusions: Not Present Thought Process: Intact and Racing Thought Content: positive for Intact and positive for Suicidal Ideation Diagnostics Vital Signs (24Hr): Vital Signs - 24 hr 12/28/24 07:41 12/28/24 19:51 Temperature 98.4 F 97.8 F Pulse Rate 74 75 Respiratory Rate 16 16 Blood Pressure 127/61 114/60 Pulse Oximetry 98 98 Oxygen Delivery Method Room Air Room Air BMI result Body Mass Index 18.8 Labs 12/25/24 17:00 12/25/24 17:00 Labs: Laboratory Results - last 48 hr 12/27/24 12/27/24 07:41 07:42 Estimat Average Glucose 117 Hemoglobin A1c % 5.7 Triglycerides 63 Cholesterol 91 LDL Cholesterol, Calc 31 HDL Cholesterol 48 Vitamin B12 1038 H Folate 14.6 TSH 0.61 Free T4 1.12 Medications Medications Current Medications Acetaminophen (Acetaminophen 325 Mg Tablet) 650 mg PO Q6H PRN PRN Reason: Headache/Pain, Scale 1-10 Al Hydroxide/Mg Hydroxide (Magnesium Hydrox/Alum Hydrox 30 Ml Oral.Susp) 30 ml PO Q6H PRN PRN Reason: Heartburn/Nausea Amlodipine Besylate (Amlodipine Besylate 10 Mg Tablet) 10 mg PO DAILY [facility]; Protocol Last Admin: 12/28/24 08:37 Dose: 10 mg Atenolol (Atenolol 50 Mg Tablet) 50 mg PO DAILY [facility]; Protocol Last Admin: 12/28/24 08:36 Dose: 50 mg Atorvastatin Calcium (Atorvastatin Calcium 80 Mg Tablet) 80 mg PO DAILY [facility] Last Admin: 12/28/24 08:36 Dose: 80 mg Buprenorphine/Naloxone (Buprenorphine/Naloxone 2/0.5mg Film) 1 film SUBLINGUAL BID@0600,1500 [facility] Last Admin: 12/29/24 05:49 Dose: 1 film Carisoprodol (Carisoprodol 350 Mg Tablet) 350 mg PO QID PRN PRN Reason: Pain, Moderate(Pain Scale 4-6) Last Admin: 12/28/24 17:17 Dose: 350 mg Diazepam (Diazepam 5 Mg Tablet) 5 mg PO BID PRN PRN Reason: Anxiety Last Admin: 12/28/24 20:13 Dose: 5 mg Hydrocortisone (Hydrocortisone 2.5 % Rectal Cr 30 Gm Tube) 1 appl [place] BID PRN PRN Reason: Hemorrhoids Last Admin: 12/28/24 15:51 Dose: 1 appl Hydroxyzine HCl (Hydroxyzine Hcl 25 Mg Tablet) 25 mg PO Q6H PRN PRN Reason: mild anxiety Last Admin: 12/27/24 20:30 Dose: 25 mg Lidocaine (Lidocaine 4 % Patch Adh..Patch) 1 patch TRANSDERMA DAILY PRN; Protocol PRN Reason: local pain Last Admin: 12/28/24 17:24 Dose: 1 patch Magnesium Hydroxide (Milk Of Magnesia 30 Ml Oral.Susp) 30 ml PO DAILY PRN PRN Reason: Constipation Last Admin: 12/27/24 10:47 Dose: 30 ml Nicotine Polacrilex (Nicotine Polacrilex 2 Mg Gum) 4 mg BUCCAL Q2H PRN PRN Reason: Nicotine Cravings Tamsulosin HCl (Tamsulosin Hcl 0.4 Mg Capsule) 0.4 mg PO BEDTIME [facility] Last Admin: 12/28/24 20:13 Dose: 0.4 mg Trazodone HCl (Trazodone Hcl 50 Mg Tablet) 50 mg PO BEDTIME MRX1 PRN PRN Reason: Insomnia Last Admin: 12/27/24 20:30 Dose: 50 mg Allergies Allergies Allergy/AdvReac Type Severity Reaction Status Date / Time No Known Allergies Allergy Verified 12/25/24 16:31 [No Known Allergies*] Assessment & Plan Assessment & Plan (1) Suicidal ideation: Status: Acute Code(s): R45.851 - Suicidal ideations (2) Adjustment disorder: Status: Acute Code(s): F43.20 - Adjustment disorder, unspecified (3) Opioid use disorder: Status: Acute Code(s): F11.90 - Opioid use, unspecified, uncomplicated Plan pt not interested in med changes. continue suboxone, valium, soma. refer for outpt F/U. improved mood now that he has spoken with his son and knows son has not spurned him again. 12/28: Active on unit. social with peers. Patient reports feeling better than when I got here ; continues to report suicidal ideation, did not disclose plan. denies HI/VH/AH. Rapid speech. rambling at times. Continue current tx plan. 12/29/2024: No changes to primary team's treatment plan Reason for continued inpatient stay Substantial Risk for: rapid decompensation Time Spent With Patient Time: Total time managing care of this patient today ____ minutes.
[2024-12-29 08:36] VITALS: BP 119/60; PULSE 81; RESP 16; TEMP 36.8; O2SAT 97
[2024-12-29] MEDS: amLODIPine Besylate 10 MG TABLET PO (08:44)
[2024-12-29] MEDS: Atorvastatin Calcium 80 MG TABLET PO (08:44)
[2024-12-29] MEDS: atenoloL 50 MG TABLET PO (08:44)
[2024-12-29] MEDS: Hydrocortisone 2.5 % Rectal Cr 30 GM TUBE 1 APPL PR (08:44)
[2024-12-29] MEDS: carisoprodoL 350 MG TABLET PO ×3 (08:58→21:13)
[2024-12-29] MEDS: diazePAM 5 MG TABLET PO ×2 (08:59→17:50)
[2024-12-29] MEDS: Lidocaine 4 % Patch ADH..PATCH 1 PATCH TRANSDERMA (09:12)
[2024-12-29] MEDS: hydrOXYzine HCL 25 MG TABLET PO ×2 (15:06→21:12)
[2024-12-29 20:00] VITALS: BP 128/65; PULSE 68; RESP 14; TEMP 36.7; O2SAT 98
[2024-12-29] MEDS: Tamsulosin HCL 0.4 MG CAPSULE PO (21:12)
[2024-12-30] MEDS: Buprenorphine/Naloxone 2/0.5mg FILM 1 FILM SUBLINGUAL ×2 (06:16→15:09)
[2024-12-30] MEDS: Hydrocortisone 2.5 % Rectal Cr 30 GM TUBE 1 APPL PR ×2 (06:30→11:35)
[2024-12-30] MEDS: diazePAM 5 MG TABLET PO (06:40)
[2024-12-30] MEDS: Lidocaine 4 % Patch ADH..PATCH 1 PATCH TRANSDERMA (06:40)
[2024-12-30] MEDS: carisoprodoL 350 MG TABLET PO ×3 (06:40→20:09)
[2024-12-30 07:50] VITALS: BP 117/58; PULSE 83; RESP 14; TEMP 36.4; O2SAT 97
[2024-12-30] MEDS: Atorvastatin Calcium 80 MG TABLET PO (07:52)
[2024-12-30] MEDS: hydrOXYzine HCL 25 MG TABLET PO ×2 (07:52→20:10)
--- NOTE | 2024-12-30 08:49 | P.PNPSI_ITS ---
Subjective Subjective Date of Service: 12/30/24 Reason For Visit: SI/depression Subjective Notes: Conditional Voluntary Medical Problems Affecting Mental Status: Yes Interim History: Eating and sleeping OK. Remains on 5 minute checks for fall risk. Noted to be using his walker for a table for his meal tray. Reminded to use the walker for walking. Social with roommate and displaying sense of humor. States he had a bad panic attack this morning. Unaware of any precipitants for the attack. States he is glad that his medications got straightened out and feels that he had a good conversation with the provider yesterday. Pain managable. Medication Compliance: Yes Side effects from medications: No Attending Groups: Yes Review of Systems Acute medical concerns: Yes ;knee and foot pain improving since shoes provided Mental Status Exam Mental Status Exam Patient Appearance: Well Grooomed Patient Orientation: Situation Level of Consciousness: Alert Patient Behavior: Appropriate Mood Description: Anxious Affect Description: Calm Patient Cognition Impaired: No Ability to Follow Directions: Fair Speech Pattern: Clear Memory Description: Normal for Patient Hallucinations: None Delusions: Not Present Thought Process: Intact Thought Content: positive for Perseveration Depressive Symptoms: Increased Anxiety and Increased Irritability Judgement: Fair Diagnostics Vital Signs (24Hr): Vital Signs - 24 hr 12/29/24 20:00 12/30/24 07:50 Temperature 98.1 F 97.6 F Pulse Rate 68 83 Respiratory Rate 14 14 Blood Pressure 128/65 117/58 L Pulse Oximetry 98 97 Oxygen Delivery Method Room Air Room Air BMI result Body Mass Index 18.8 Labs 12/25/24 17:00 12/25/24 17:00 Medications Medications Current Medications Acetaminophen (Acetaminophen 325 Mg Tablet) 650 mg PO Q6H PRN PRN Reason: Headache/Pain, Scale 1-10 Al Hydroxide/Mg Hydroxide (Magnesium Hydrox/Alum Hydrox 30 Ml Oral.Susp) 30 ml PO Q6H PRN PRN Reason: Heartburn/Nausea Amlodipine Besylate (Amlodipine Besylate 10 Mg Tablet) 10 mg PO DAILY [facility]; Protocol Last Admin: 12/29/24 08:44 Dose: 10 mg Atenolol (Atenolol 50 Mg Tablet) 50 mg PO DAILY [facility]; Protocol Last Admin: 12/29/24 08:44 Dose: 50 mg Atorvastatin Calcium (Atorvastatin Calcium 80 Mg Tablet) 80 mg PO DAILY [facility] Last Admin: 12/30/24 07:52 Dose: 80 mg Buprenorphine/Naloxone (Buprenorphine/Naloxone 2/0.5mg Film) 1 film SUBLINGUAL BID@0600,1500 [facility] Last Admin: 12/30/24 06:16 Dose: 1 film Carisoprodol (Carisoprodol 350 Mg Tablet) 350 mg PO QID PRN PRN Reason: Pain, Moderate(Pain Scale 4-6) Last Admin: 12/30/24 06:40 Dose: 350 mg Diazepam (Diazepam 5 Mg Tablet) 5 mg PO BID PRN PRN Reason: Anxiety Last Admin: 12/30/24 06:40 Dose: 5 mg Hydrocortisone (Hydrocortisone 2.5 % Rectal Cr 30 Gm Tube) 1 appl [place] BID PRN PRN Reason: Hemorrhoids Last Admin: 12/30/24 06:30 Dose: 1 appl Hydroxyzine HCl (Hydroxyzine Hcl 25 Mg Tablet) 25 mg PO Q6H PRN PRN Reason: mild anxiety Last Admin: 12/30/24 07:52 Dose: 25 mg Lidocaine (Lidocaine 4 % Patch Adh..Patch) 1 patch TRANSDERMA DAILY [facility]; Protocol PRN Reason: local pain Last Admin: 12/30/24 06:40 Dose: 1 patch Magnesium Hydroxide (Milk Of Magnesia 30 Ml Oral.Susp) 30 ml PO DAILY PRN PRN Reason: Constipation Last Admin: 12/27/24 10:47 Dose: 30 ml Nicotine Polacrilex (Nicotine Polacrilex 2 Mg Gum) 4 mg BUCCAL Q2H PRN PRN Reason: Nicotine Cravings Tamsulosin HCl (Tamsulosin Hcl 0.4 Mg Capsule) 0.4 mg PO BEDTIME [facility] Last Admin: 12/29/24 21:12 Dose: 0.4 mg Trazodone HCl (Trazodone Hcl 50 Mg Tablet) 50 mg PO BEDTIME MRX1 PRN PRN Reason: Insomnia Last Admin: 12/27/24 20:30 Dose: 50 mg Allergies Allergies Allergy/AdvReac Type Severity Reaction Status Date / Time No Known Allergies Allergy Verified 12/25/24 16:31 [No Known Allergies*] Assessment & Plan Assessment & Plan (1) Suicidal ideation: Status: Acute Code(s): R45.851 - Suicidal ideations (2) Adjustment disorder: Status: Acute Code(s): F43.20 - Adjustment disorder, unspecified (3) Opioid use disorder: Status: Acute Code(s): F11.90 - Opioid use, unspecified, uncomplicated Plan pt not interested in med changes. continue suboxone, valium, soma. refer for outpt F/U. improved mood now that he has spoken with his son and knows son has not spurned him again. 12/28: Active on unit. social with peers. Patient reports feeling better than when I got here ; continues to report suicidal ideation, did not disclose plan. denies HI/VH/AH. Rapid speech. rambling at times. Continue current tx plan. 12/29/2024: No changes to primary team's treatment plan 12/30/24 No med changes. Continue 5 minute checks and reminders to use walker, monitor for pain Reason for continued inpatient stay Substantial Risk for: harm to self and inability to function Time Spent With Patient Time: Total time managing care of this patient today ____ minutes.
[2024-12-30 09:17] VITALS: BP 124/62; PULSE 86
[2024-12-30] MEDS: atenoloL 50 MG TABLET PO (09:17)
[2024-12-30] MEDS: amLODIPine Besylate 10 MG TABLET PO (09:17)
--- NOTE | 2024-12-30 19:22 | PM.EVENT ---
Event Note Date of Service: 12/30/24 Event Note: Pt is a 69-year-old male admitted [facility] hospitalist consult placed for antibiotic coverage for UTI. Pt has had 2 urine cultures in the past 10 days, 1 which grew Streptococcus viridans and the other corynebacterium. Sensitivities to either of the species is routinely performed and often RA sign of contamination. However, pt is symptomatic and continues to complain of polyuria and dysuria. Will treat with Bactrim SS p.o. b.i.d. x7 days. Time Spent With Patient Time: Total time managing care of this patient today ____ minutes.
[2024-12-30] MEDS: Tamsulosin HCL 0.4 MG CAPSULE PO (20:10)
[2024-12-30] MEDS: Sulfamethox/Trimeth 400/80 TABLET 1 TAB PO (20:10)
[2024-12-30 20:45] VITALS: BP 119/63; PULSE 77; RESP 18; TEMP 36.5; O2SAT 96
[2024-12-30] MEDS: Acetaminophen 325 MG TABLET 650 MG PO (21:06)
[2024-12-31] MEDS: Buprenorphine/Naloxone 2/0.5mg FILM 1 FILM SUBLINGUAL ×2 (05:52→14:46)
[2024-12-31] MEDS: Lidocaine 4 % Patch ADH..PATCH 1 PATCH TRANSDERMA (06:16)
[2024-12-31 08:09] VITALS: BP 141/63; PULSE 77; RESP 16; TEMP 36.8; O2SAT 97
[2024-12-31] MEDS: amLODIPine Besylate 10 MG TABLET PO (08:10)
[2024-12-31] MEDS: Atorvastatin Calcium 80 MG TABLET PO (08:10)
[2024-12-31] MEDS: Sulfamethox/Trimeth 400/80 TABLET 1 TAB PO ×2 (08:10→20:14)
[2024-12-31] MEDS: atenoloL 50 MG TABLET PO (08:10)
[2024-12-31] MEDS: carisoprodoL 350 MG TABLET PO ×2 (14:45→20:17)
[2024-12-31] MEDS: Acetaminophen 325 MG TABLET 650 MG PO (14:49)
[2024-12-31] MEDS: Hydrocortisone 2.5 % Rectal Cr 30 GM TUBE 1 APPL PR (15:37)
--- NOTE | 2024-12-31 16:37 | HO.PSYCHPN ---
Subjective Subjective Date of Service: 12/31/24 Reason For Visit: SI/depression Interim History: pleasant, cooperative. review recent Dx with UTI, start on bactrim. states he is feeling better since antibx. plannig to discharge wed. all medical/pain concerns at this point. per staff, taking meds. visible. slept 7 hours. on bactrim for UTI. Mental Status Exam Mental Status Exam Narrative: adequately dressed and groomed. cooperative. no PMA/PMR. voluble. speech incr amount, normal rate, loudness. decr latency. thoughts digressive. affect full range, normo-intense, non-labile. mood pretty good. no SI/HI/AVH expressed. Diagnostics Vital Signs (24Hr): Vital Signs - 24 hr 12/30/24 20:45 12/31/24 08:09 Temperature 97.7 F 98.2 F Pulse Rate 77 77 Respiratory Rate 18 16 Blood Pressure 119/63 141/63 H Pulse Oximetry 96 97 Oxygen Delivery Method Room Air Room Air BMI result Body Mass Index 18.8 Labs 12/25/24 17:00 12/25/24 17:00 Medications Medications Current Medications Acetaminophen (Acetaminophen 325 Mg Tablet) 650 mg PO Q6H PRN PRN Reason: Headache/Pain, Scale 1-10 Last Admin: 12/31/24 14:49 Dose: 325 mg Al Hydroxide/Mg Hydroxide (Magnesium Hydrox/Alum Hydrox 30 Ml Oral.Susp) 30 ml PO Q6H PRN PRN Reason: Heartburn/Nausea Amlodipine Besylate (Amlodipine Besylate 10 Mg Tablet) 10 mg PO DAILY [facility]; Protocol Last Admin: 12/31/24 08:10 Dose: 10 mg Atenolol (Atenolol 50 Mg Tablet) 50 mg PO DAILY [facility]; Protocol Last Admin: 12/31/24 08:10 Dose: 50 mg Atorvastatin Calcium (Atorvastatin Calcium 80 Mg Tablet) 80 mg PO DAILY [facility] Last Admin: 12/31/24 08:10 Dose: 80 mg Buprenorphine/Naloxone (Buprenorphine/Naloxone 2/0.5mg Film) 1 film SUBLINGUAL BID@0600,1500 [facility] Last Admin: 12/31/24 14:46 Dose: 1 film Carisoprodol (Carisoprodol 350 Mg Tablet) 350 mg PO QID PRN PRN Reason: Pain, Moderate(Pain Scale 4-6) Last Admin: 12/31/24 14:45 Dose: 350 mg Diazepam (Diazepam 5 Mg Tablet) 5 mg PO BID PRN PRN Reason: Anxiety Last Admin: 12/30/24 06:40 Dose: 5 mg Hydrocortisone (Hydrocortisone 2.5 % Rectal Cr 30 Gm Tube) 1 appl [place] BID PRN PRN Reason: Hemorrhoids Last Admin: 12/31/24 15:37 Dose: 1 appl Hydroxyzine HCl (Hydroxyzine Hcl 25 Mg Tablet) 25 mg PO Q6H PRN PRN Reason: mild anxiety Last Admin: 12/30/24 20:10 Dose: 25 mg Lidocaine (Lidocaine 4 % Patch Adh..Patch) 1 patch TRANSDERMA DAILY [facility]N; Protocol PRN Reason: local pain Last Admin: 12/31/24 06:16 Dose: 1 patch Magnesium Hydroxide (Milk Of Magnesia 30 Ml Oral.Susp) 30 ml PO DAILY PRN PRN Reason: Constipation Last Admin: 12/27/24 10:47 Dose: 30 ml Nicotine Polacrilex (Nicotine Polacrilex 2 Mg Gum) 4 mg BUCCAL Q2H PRN PRN Reason: Nicotine Cravings Tamsulosin HCl (Tamsulosin Hcl 0.4 Mg Capsule) 0.4 mg PO BEDTIME [facility] Last Admin: 12/30/24 20:10 Dose: 0.4 mg Trazodone HCl (Trazodone Hcl 50 Mg Tablet) 50 mg PO BEDTIME MRX1 PRN PRN Reason: Insomnia Last Admin: 12/27/24 20:30 Dose: 50 mg Trimethoprim/Sulfamethoxazole (Sulfamethox/Trimeth 400/80 Tablet) 1 tab PO BID [facility] Stop: 01/06/25 20:59 Last Admin: 12/31/24 08:10 Dose: 1 tab Allergies Allergies Allergy/AdvReac Type Severity Reaction Status Date / Time No Known Allergies Allergy Verified 12/25/24 16:31 [No Known Allergies*] Assessment & Plan Assessment & Plan (1) Suicidal ideation: Status: Acute Code(s): R45.851 - Suicidal ideations (2) Adjustment disorder: Status: Acute Code(s): F43.20 - Adjustment disorder, unspecified (3) Opioid use disorder: Status: Acute Code(s): F11.90 - Opioid use, unspecified, uncomplicated Plan pt not interested in med changes. continue suboxone, valium, soma. refer for outpt F/U. improved mood now that he has spoken with his son and knows son has not spurned him again. 12/28: Active on unit. social with peers. Patient reports feeling better than when I got here ; continues to report suicidal ideation, did not disclose plan. denies HI/VH/AH. Rapid speech. rambling at times. Continue current tx plan. 12/29: No changes to primary team's treatment plan 12/30: No med changes. Continue 5 minute checks and reminders to use walker, monitor for pain 12/31: feeling better since UTI Dx and antibx start. planning for weds discharge. all medical concerns, no psych concerns. Reason for continued inpatient stay Substantial Risk for: inability to function and rapid decompensation Time Spent With Patient Time: Total time managing care of this patient today __25__ minutes.
[2024-12-31 20:00] VITALS: BP 150/66; PULSE 68; RESP 16; TEMP 36.6; O2SAT 99
[2024-12-31] MEDS: Tamsulosin HCL 0.4 MG CAPSULE PO (20:14)
[2025-01-01] MEDS: Buprenorphine/Naloxone 2/0.5mg FILM 1 FILM SUBLINGUAL ×2 (05:45→14:52)
[2025-01-01 07:57] VITALS: BP 128/60; PULSE 72; RESP 16; TEMP 36.8; O2SAT 97
[2025-01-01] MEDS: Atorvastatin Calcium 80 MG TABLET PO (08:17)
[2025-01-01] MEDS: atenoloL 50 MG TABLET PO (08:17)
[2025-01-01] MEDS: Sulfamethox/Trimeth 400/80 TABLET 1 TAB PO ×2 (08:18→20:02)
[2025-01-01] MEDS: amLODIPine Besylate 10 MG TABLET PO (08:18)
[2025-01-01] MEDS: Lidocaine 4 % Patch ADH..PATCH 1 PATCH TRANSDERMA (10:13)
[2025-01-01] MEDS: hydrOXYzine HCL 25 MG TABLET PO ×2 (10:22→20:03)
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
[2025-01-01] MEDS: diazePAM 5 MG TABLET PO ×2 (12:08→20:02)
[2025-01-01] MEDS: Hydrocortisone 2.5 % Rectal Cr 30 GM TUBE 1 APPL PR (18:09)
[2025-01-01 20:00] VITALS: BP 142/69; PULSE 72; RESP 16; TEMP 37.1; O2SAT 97
[2025-01-01] MEDS: Tamsulosin HCL 0.4 MG CAPSULE PO (20:02)
[2025-01-01] MEDS: carisoprodoL 350 MG TABLET PO (20:03)
[2025-01-02] MEDS: Buprenorphine/Naloxone 2/0.5mg FILM 1 FILM SUBLINGUAL (05:57)
[2025-01-02] MEDS: diazePAM 5 MG TABLET PO (05:59)
[2025-01-02] MEDS: Hydrocortisone 2.5 % Rectal Cr 30 GM TUBE 1 APPL PR (06:42)
[2025-01-02 08:00] VITALS: BP 137/68; PULSE 107; RESP 16; TEMP 36.4; O2SAT 96
[2025-01-02] MEDS: Atorvastatin Calcium 80 MG TABLET PO (08:09)
[2025-01-02] MEDS: Sulfamethox/Trimeth 400/80 TABLET 1 TAB PO (08:09)
[2025-01-02] MEDS: amLODIPine Besylate 10 MG TABLET PO (08:09)
[2025-01-02] MEDS: atenoloL 50 MG TABLET PO (08:09)
[2025-01-02] MEDS: Lidocaine 4 % Patch ADH..PATCH 1 PATCH TRANSDERMA (09:02)
== END 2025-01-02 10:25 | disposition home or self-care (01) | DRG 882 ==
LOC: HO.ED 23:22 → HO.PADLT16 12-26 12:49
PROVIDERS: Physician Assistant; Admitting Provider Psychiatry & Neurology Psychiatry; Emergency Provider Student in an Organized Health Care Education/Training Program; PCP Internal Medicine; Visit Provider Psychiatry & Neurology Psychiatry
DX: F43.20 Adjustment disorder, unspecified (principal); R45.851 Suicidal ideations; F11.20 Opioid dependence, uncomplicated; N39.0 Urinary tract infection, site not specified; Z62.810 Personal history of physical and sexual abuse in childhood; Z79.899 Other long term (current) drug therapy
CPT/HCPCS: 36415; 80048; 80061; 80076; 80307; 81001; 82607; 82746; 83036; 83735; 84439; 84443; 85025; 87086; 93005; 99285

== ENCOUNTER → 2024-12-26 08:03 | Outpatient (BNV) | payer MEDICARE, SELFPAY | PROVIDERS: Admitting Provider Psychiatry & Neurology Psychiatry; Emergency Provider Student in an Organized Health Care Education/Training Program; PCP Internal Medicine; Visit Provider Internal Medicine Cardiovascular Disease | DX: Z13.6 Encounter for screening for cardiovascular disorders (principal) | CPT/HCPCS: 93010 ==

== ENCOUNTER → 2024-12-26 12:45 | Outpatient (BNV) | payer MEDICARE, SELFPAY | PROVIDERS: Admitting Provider Psychiatry & Neurology Psychiatry; Emergency Provider Student in an Organized Health Care Education/Training Program; PCP Internal Medicine; Visit Provider Psychiatry & Neurology Psychiatry | DX: F43.20 Adjustment disorder, unspecified (principal); F11.90 Opioid use, unspecified, uncomplicated; R45.851 Suicidal ideations | CPT/HCPCS: 90792; 99231; 99232; 99239 ==

== ENCOUNTER 2025-01-16 11:20 | Inpatient (IN) | payer MEDICARE, OTHER, SELFPAY ==
[2025-01-16 11:27] VITALS: BP 170/76; PULSE 74; RESP 16; O2SAT 96; BMI 26.6
--- NOTE | 2025-01-16 11:29 | ED_ITS ---
HPI - General Adult General Chief complaint: Psychiatric Symptoms Stated complaint: SI w/ stated plan Time Seen by Provider: 01/16/25 11:27 Source: patient and EMS Mode of arrival: EMS Limitations: no limitations History of Present Illness ED Provider: Phylicia Sheth PA-C HPI narrative: Patient is a 69 year old assigned male at with a history of OUD and adjustment disorder presenting to the emergency department today with suicidal ideation. Patient states that he has been thinking of killing himself by driving his motorcycle off the road. Patient denies any dizziness, lightheadedness, abdominal pain, nausea, vomiting, fever, chills, blurry vision, double vision, loss of vision, chest pain, difficulty breathing, shortness of breath, back pain, night sweats, pain with urination, increased urinary frequency, increased urinary urgency, blood in his urine or stool, syncope or a near syncopal episode, recent trauma or falls, bowel incontinence, bladder incontinence, or any other complaints at this time. Relieving factors: none Exacerbating factors: none Associated symptoms: denies other symptoms Treatments prior to arrival: none Related Data Home Medications ?Medication ?Instructions ?Recorded ?Confirmed amlodipine 10 mg tablet 10 mg PO DAILY 12/18/24 01/28/25 atenolol 50 mg tablet 50 mg PO DAILY 12/18/24 01/28/25 atorvastatin 80 mg tablet 80 mg PO BEDTIME 12/18/24 01/28/25 buprenorphine 4 mg-naloxone 1 mg 0.5 film sublingual BID 12/18/24 01/28/25 sublingual film (Suboxone) carisoprodol 350 mg tablet 350 mg PO QID PRN pain 12/18/24 01/28/25 diazepam 5 mg tablet 5 mg PO BID PRN Anxiety 12/18/24 01/28/25 tamsulosin 0.4 mg capsule 0.4 mg PO BEDTIME 12/18/24 01/28/25 sennosides 8.6 mg tablet (senna) 17.2 mg PO DAILY PRN constipation 01/17/25 01/28/25 Previous Rx's ?Medication ?Instructions ?Recorded hydrocortisone 2.5 % topical cream 1 appl MT BID PRN Hemorrhoids 30 01/01/25 with perineal applicator days #30 grams (Proctozone-HC) hydroxyzine HCl 25 mg tablet 25 mg PO DAILY PRN mild anxiety 30 01/01/25 days #30 tabs lidocaine 4 % topical patch 1 patch transdermal DAILY PRN 01/01/25 (Lidocaine Pain Relief) local pain 30 days #30 ea Allergies Allergy/AdvReac Type Severity Reaction Status Date / Time No Known Allergies Allergy Verified 01/28/25 04:48 [No Known Allergies*] Review of Systems 2 Constitutional: Constitutional: Reports no additional constitutional complaints, Denies chills, Denies fever(s) and Denies night sweats Eyes: Eyes: Reports no additional eye complaints, Denies blurry vision, Denies change in vision, Denies diplopia, Denies eye discharge, Denies loss of vision and Denies eye pain ENT: Denies dizziness Cardiovascular: Cardiovascular: Reports no additional cardiovascular complaints, Denies chest pain, Denies lightheadedness, Denies Loss of Consciousness and Denies dyspnea Respiratory: Respiratory: Reports no additional respiratory complaints and Denies dyspnea Gastrointestinal: Gastrointestinal: Reports no additional gastrointestinal complaints, Denies abdominal pain, Denies melena, Denies hematochezia, Denies change in bowel habits and Denies change in stool character Genitourinary: Genitourinary: Reports no additional male genitourinary complaints, Denies hematuria, Denies oliguria, Denies difficulty urinating, Denies dysuria, Denies urinary frequency, Denies urinary hesitancy, Denies urinary incontinence and Denies urinary urgency Musculoskeletal: Musculoskeletal: Reports no additional musculoskeletal complaints, Denies numbness and Denies tingling Neurologic: Denies dizziness, Denies loss of vision, Denies numbness and Denies tingling Psychiatric: Psychiatric: Reports no additional psychiatric complaints, Denies homicidal ideation and Reports suicidal ideation Endocrine: Endocrine: Reports no additional endocrine complaints Hematologic/Lymphatic: Hematologic/Lymphatic: Reports no additional hematologic/lymphatic complaints Allergic/Immunologic: Allergic/Immunologic: Reports no additional allergic/immunologic complaints [facility] Past Medical History Attestation statement: The following information was validated with the patient. Source: old records reviewed and nursing notes reviewed Medical History (Updated 01/28/25 @ 11:16 by Amarilis Melendez NP) Suicidal ideation Social History Social History Household Members: None Housing: Apartment Do you presently have visiting nurse or other home services: No Comment: 5 min checks Patient Tobacco Use Status: Never used Tobacco Smoked in Last 30 Days: No Use of substances other than those prescribed or required for medical reasons: No Advance Directives: No Advance Directives Information Provided: No service: No Sexual orientation: Straight/Heterosexual Physical Exam ED Vital Signs: Vital Signs - 24 hr 01/16/25 11:27 01/16/25 11:49 Temperature 98.4 F Pulse Rate 95 Respiratory Rate 16 16 Blood Pressure 158/78 H Pulse Oximetry 95 Oxygen Delivery Method Room Air BMI result Body Mass Index 26.6 Const General: cooperative, no acute distress, alert and awake Nutritional Appearance: well nourished Orientation/consciousness: patient oriented x3 HENMT Head: Yes normal to inspection and Yes atraumatic Ears: hearing grossly normal bilaterally and external ears normal General nose exam: Normal external nose present, no nasal discharge noted and no epistaxis Face and sinus: Yes normal facial exam, No abrasion and No laceration Mouth: Normal oral and palatal mucosa present, no drooling and no muffled voice Eyes General: appearance normal, both eyes and all related structures Periorbital: periorbital findings normal Eyelids: Yes eyelids normal Conjunctivae: conjunctivae normal Pupils: Equal, round and reactive pupils present EOM: EOMs intact bilaterally Neck Neck: Yes normal visual inspection, Yes full ROM and Yes no lymphadenopathy Resp Effort & Inspection: normal respiratory effort and able to speak in complete sentences Neuro General: patient oriented x3, moves all extremities and CN's II-XI intact bilaterally Cranial nerves: Yes Equal, round and reactive pupils present Cognition (Neuro): normal cognition Extrem General: Yes normal to inspection, Yes full ROM and Yes capillary refill normal Psych Appearance: grossly normal Mental Status: mental status grossly normal Attitude: Belligerent attititude/behavior present Thought content: Suicidality present Medications Administered Discontinued Medications Generic Name Dose Route Start Last Admin Trade Name Freq PRN Reason Stop Dose Admin Amlodipine Besylate 10 mg 01/17/25 09:00 01/18/25 08:37 Amlodipine Besylate 10 Mg Tablet PO 10 mg DAILY [facility] Administration Protocol Atenolol 50 mg 01/17/25 09:00 01/18/25 08:37 Atenolol 50 Mg Tablet PO 50 mg DAILY [facility] Administration Protocol Atorvastatin Calcium 80 mg 01/16/25 21:00 01/17/25 20:39 Atorvastatin Calcium 80 Mg Tablet PO 80 mg BEDTIME [facility] Administration Buprenorphine/Naloxone 0.5 film 01/16/25 21:00 01/16/25 21:33 Buprenorphine/Naloxone 4/1 Mg Film SUBLINGUAL Not Given BID [facility] Buprenorphine/Naloxone 1 film 01/16/25 21:30 01/18/25 08:37 Buprenorphine/Naloxone 2/0.5mg Film SUBLINGUAL 1 film BID ANTONINA Administration Buprenorphine/Naloxone 1 film 01/18/25 09:00 01/18/25 08:49 Buprenorphine/Naloxone 4/1 Mg Film SUBLINGUAL Not Given DAILY [facility] Carisoprodol 350 mg 01/17/25 14:47 01/18/25 09:03 Carisoprodol 350 Mg Tablet PO 350 mg QID PRN Administration Pain, Moderate(Pain Scale 4-6) Diazepam 2 mg 01/16/25 12:06 01/16/25 12:12 Diazepam 2 Mg Tablet PO 01/16/25 12:07 2 mg ONCE ONE Administration Diazepam 8 mg 01/16/25 12:22 01/16/25 12:40 Diazepam 2 Mg Tablet PO 01/16/25 12:23 Not Given ONCE ONE Diazepam 5 mg 01/16/25 13:04 01/17/25 14:49 Diazepam 5 Mg Tablet PO 5 mg BID PRN Administration Anxiety Hydrocortisone 1 appl 01/16/25 12:53 01/18/25 11:08 Hydrocortisone 2.5 % Rectal Cr 30 Gm Tube MT 1 appl BID PRN Administration Hemorrhoids Hydroxyzine HCl 25 mg 01/16/25 12:53 01/16/25 15:31 Hydroxyzine Hcl 25 Mg Tablet PO 25 mg DAILY PRN Administration mild anxiety Hydroxyzine HCl 25 mg 01/17/25 14:10 01/18/25 09:03 Hydroxyzine Hcl 25 Mg Tablet PO 25 mg Q6H PRN Administration mild anxiety Lidocaine 1 patch 01/16/25 12:53 01/17/25 16:57 Lidocaine 4 % Patch Adh..Patch TRANSDERMA 1 patch DAILY PRN Administration local pain Protocol Tamsulosin HCl 0.4 mg 01/16/25 21:00 01/17/25 20:39 Tamsulosin Hcl 0.4 Mg Capsule PO 0.4 mg BEDTIME [facility] Administration Medical Decision Making Medical Decision Making MDM Narrative: Patient is a 69 year old assigned male at with a history of OUD and adjustment disorder presenting to the emergency department today with suicidal ideation. Patient's physical exam was as noted in the physical exam portion of this note. Patient's blood work was unremarkable. Patient's urine showed no acute process. Patient's EKG was unremarkable. Patient was evaluated by the CARE team who recommended inpatient level of psychiatric care. I explained my physical exam findings as well as all test results to the patient. I answered all questions asked by the patient. Patient verbalized agreement with this plan and remaining in observation until he is either admitted here at [facility] for inpatient level of psychiatric care or transferred to an appropriate psychiatric facility. Differential Diagnosis Differential Diagnoses: The differential diagnosis associated with the presentation includes SI Admission/Observation Consideration of admission/observation: Escalation of care including admission/observation considered Patient will remain in observation until he is either admitted our inpatient psychiatric service or transferred to an appropriate psychiatric facility. Consult Healthcare Provider Management of the patient was discussed with: Behavioral Health Provider (Spoke with the CARE team as noted in the MDM Rationale portion of this note. ) Lab Data [facility] Lab Attestation statement: I reviewed the patient's lab results. My interpretation of these results are in the MDM Rationale portion of this note. 01/16/25 12:18 01/18/25 08:16 Labs: Lab Results 01/16/25 01/16/25 Range/Units 11:46 12:18 WBC 5.5 (4.8-10.8) X10*3/uL RBC 4.01 L (4.60-5.80) X10*6/uL Hgb 13.4 L (14.0-18.0) g/dl Hct 37.8 L (42.0-52.0) % MCV 94.3 (80.0-98.0) fL MCH 33.4 H (27.0-33.0) pg MCHC 35.4 (31.0-36.0) g/dl RDW 12.0 (11.0-16.0) % Plt Count 223 (160-400) X10*3/uL MPV 9.5 (9.4-12.4) fL Immature Gran % (Auto) 0.4 (0.0-0.4) % Neut % (Auto) 65.9 (45-73) % Lymph % (Auto) 24.1 (20-40) % Bartholomew % (Auto) 6.3 (2-11) % Eos % (Auto) 2.2 (0-4) % Baso % (Auto) 1.1 (0-2) % Lymph # (Auto) 1.3 (1.2-4.9) X10*3/uL Bartholomew # (Auto) 0.4 (0.1-1.2) X10*3/uL Eos # (Auto) 0.1 (0.0-0.4) X10*3/uL Baso # (Auto) 0.1 (0.0-0.2) X10*3/uL Abs Immat Gran (auto) 0.02 (0.00-0.03) X10*3/uL Absolute Neuts (auto) 3.7 (2.0-8.3) x10*3/uL Absolute Nucleated RBC 0.000 (0.0-0.012) X10*3/uL Nucleated RBC % (auto) 0.0 (0.0-0.2) /100WBC Sodium 142 (135-145) mmol/L Potassium 4.4 (3.3-5.1) mmol/L Chloride 104 (96-108) mmol/L Carbon Dioxide 30 H (22-29) mmol/L Anion Gap 12 (12-20) BUN 11 (9-16) mg/dL Creatinine 0.61 (0.5-1.4) mg/dL Estim Creat Clear Calc 111.0 Estimated GFR > 60 Random Glucose 125 H (60-115) mg/dL Calcium 10.0 (8.4-10.2) mg/dL Total Bilirubin 0.3 (0.0-1.0) mg/dL AST 30 (5-37) U/L ALT 28 (0-40) U/L Alkaline Phosphatase 93 (39-117) U/L Total Protein 7.2 (6.5-8.0) g/dL Albumin 4.7 (3.5-5.0) g/dL Urine Color Yellow Urine Appearance Clear Urine pH 7.5 (5.0-9.0) Ur Specific [place] 1.010 (1.005-1.025) Urine Protein Negative (Neg-Trace) mg/dL Urine Glucose (UA) Negative (Negative) mg/dL Urine Ketones Negative (Negative) mg/dL Urine Blood Negative (Negative) Urine Nitrite Negative (Negative) Ur Leukocyte Esterase Negative (Negative) Salicylates < 5.0 L (15-30) mg/dL Urine Opiates Screen Not Detected (Not Detect) Ur Buprenorphine Scrn Positive H (Not Detect) ng/mL Ur Oxycodone Screen Not Detected (Not Detect) ng/mL Urine Methadone Screen Not Detected (Not Detect) ng/mL Urine Fentanyl Screen Not Detected (Not Detect) Acetaminophen < 3 (<30) mcg/mL Ur Barbiturates Screen Not Detected (Not Detect) Ur Phencyclidine Scrn Not Detected (Not Detect) Ur Amphetamines Screen Not Detected (Not Detect) U Benzodiazepines Scrn POSITIVE H (Not Detect) Urine Cocaine Screen Not Detected (Not Detect) U Marijuana (THC) Screen POSITIVE H (Not Detect) Ethyl Alcohol < 10 mg/dL Influenza Type A (PCR) NEGATIVE (Negative) Influenza Type B (PCR) NEGATIVE (Negative) RSV RNA Qual (PCR) NEGATIVE (Negative) SARS-CoV-2 RNA (RT-PCR) NEGATIVE (Negative) Independent Interpretation I performed an independent interpretation of an: EKG Interpretation: I independently interpreted this EKG and am in agreement with the below findings: Vent. Rate: 64 BPM Atrial Rate: 64 BPM P-R Int: 160 ms QRS Dur: 84 ms QT Int: 382 ms P-R-T Axes: 82 80 81 degrees QTcB Int: 394 ms Normal sinus rhythm Normal ECG When compared with ECG of 26-Dec-2024 08:56, No significant change was found DD/ [id number] Independent Historian Clinical information obtained from an independent historian. History obtained from or confirmed by: EMS (EMS provided additional history and confirmed the history provided by the patient. ) Critical Care Time Critical Care Time Critical Care Time: Yes Total Critical Care Time: 33 Attestation: I spent 33 minutes of Critical Care Time with this patient. This does not include time spent on separately reported billable procedures. Discharge Plan Discharge Clinical Impression: Suicidal ideation Patient Disposition: Admitted As Inpatient Interventions: Admission Worksheet (ED) Last Done: 01/17/25 14:26 Discharge Date/Time: 01/17/25 14:49
--- NOTE | 2025-01-16 11:30 | ECG_ITS ---
Test Reason : R/O PROLONGED QT Blood Pressure : */* mmHG Vent. Rate : 64 BPM Atrial Rate : 64 BPM P-R Int : 160 ms QRS Dur : 84 ms QT Int : 382 ms P-R-T Axes : 82 80 81 degrees QTcB Int : 394 ms Normal sinus rhythm Normal ECG When compared with ECG of 26-Dec-2024 08:56, No significant change was found Referred By: Phylicia Sheth Electronically Signed By: DEWEY SERRA
[2025-01-16 11:49] VITALS: BP 158/78; PULSE 95; RESP 16; TEMP 36.9; O2SAT 95
--- NOTE | 2025-01-16 11:59 | PC.NURSE ---
Patient arrives to the ED today reporting suicidal ideation with a plan to drive his motorcycle into the side of a car. Patient reports I had to say I was suicidal to get into this place . Pt reports he has frequent panic attacks that cause him to need treatment. he reports that he has life stressors that cause him to struggle. He states a hx of cancer that he can't get treatment for because they are blocking me . pt denies HI/AH/VH Patient demanding upon arrival, telling this RN you are going to go get me some food, then I am going to go upstairs . This RN and JOSE DE JESUS Chapa educated patient that he will get bloodwork done prior. Pt then ambulated to nurses station demanding food. Pt also reporting 10/10 anxiety at this time
[2025-01-16] MEDS: diazePAM 2 MG TABLET PO (12:12)
[2025-01-16 12:14] LABS: Appearance Urine Clear; Color Urine Yellow; Glucose Urine UA Negative (Negative); Leukocyte Esterase Urine Negative (Negative); Nitrite Urine Negative (Negative); PH 7.5 (5.0-9.0); Urine Blood Negative (Negative); Urine Ketones Negative (Negative); Urine Protein Negative (Neg-Trace)
--- NOTE | 2025-01-16 12:17 | PC.NURSE ---
When this RN presented patient with Valium pt states 2mg, interesting, that ain't gonna work . This RN educated patient that he can take this dose and if additional medication is needed, the provider can be contacted. Pt stated well, obviously I am going to take it, I am not an idiot but obviously you people are because you cannot read a chart stating that I take a whole 10mg twice a day
[2025-01-16 12:23] LABS: Amphetamine Screen Urine Not Detected (Not Detect); Barbiturates, Urine Not Detected (Not Detect); Benzodiazepines Screen Urine POSITIVE (Not Detect); Buprenorphine Scr Positive (Not Detect); Cannabinoid Screen Urine POSITIVE (Not Detect); Cocaine Screen Urine Not Detected (Not Detect); Fentanyl, urine Not Detected (Not Detect); Methadone Screen, Urine Not Detected (Not Detect); Opiate Screen Urine Not Detected (Not Detect); Oxycodone Screen Urine Not Detected (Not Detect); Phencyclidine Screen Urine Not Detected (Not Detect)
[2025-01-16 12:24] LABS: MANUAL DIFF FLAG NO
[2025-01-16 12:32] LABS: Basophils Absolute Auto 0.1 X10*3/uL (0.0-0.2); Basophils Percent Auto 1.1 % (0-2); Eosinophils Absolute Auto 0.1 X10*3/uL (0.0-0.4); Eosinophils Percent Auto 2.2 % (0-4); Hematocrit 37.8 % (42.0-52.0); Hemoglobin 13.4 g/dl (14.0-18.0); Imm Gran Abs Auto 0.02 X10*3/uL (0.00-0.03); Imm Gran Pct Auto 0.4 % (0.0-0.4); Lymphocytes Absolute Auto 1.3 X10*3/uL (1.2-4.9); Lymphocytes Percent Auto 24.1 % (20-40); Mean Corpuscular HGB Conc 35.4 g/dl (31.0-36.0); Mean Corpuscular Hemoglobin 33.4 pg (27.0-33.0); Mean Corpuscular Volume 94.3 fL (80.0-98.0); Mean Platelet Volume 9.5 fL (9.4-12.4); Monocytes Absolute Auto 0.4 X10*3/uL (0.1-1.2); Monocytes Percent Auto 6.3 % (2-11); Neutrophils Absolute Auto 3.7 x10*3/uL (2.0-8.3); Neutrophils Percent Auto 65.9 % (45-73); Platelet Count 223 X10*3/uL (160-400); Red Blood Count 4.01 X10*6/uL (4.60-5.80); White Blood Count 5.5 X10*3/uL (4.8-10.8)
--- NOTE | 2025-01-16 12:40 | PC.NURSE ---
Pt refusing extra PO Valium, patient reports he would like his Hydroxyzine from his home medications
[2025-01-16 12:58] LABS: Alanine Aminotransferase 28 U/L (0-40); Albumin Level 4.7 g/dL (3.5-5.0); Anion Gap 12 (12-20); Aspartate Amino Transferase 30 U/L (5-37); Bilirubin Total 0.3 mg/dL (0.0-1.0); Blood Urea Nitrogen 11 mg/dL (9-16); Carbon Dioxide 30 mmol/L (22-29); Chloride 104 mmol/L (96-108); Estimated Glomerular Filt Rate > 60; Ethanol < 10 mg/dL; Glucose Random 125 mg/dL (60-115); Potassium 4.4 mmol/L (3.3-5.1); Sodium 142 mmol/L (135-145); Total Protein 7.2 g/dL (6.5-8.0)
[2025-01-16 13:06] LABS: Alkaline Phosphatase 93 U/L (39-117)
[2025-01-16 13:07] LABS: Acetaminophen LAB < 3 mcg/mL (<30); Salicylate < 5.0 mg/dL (15-30)
[2025-01-16 13:10] LABS: Influenza A PCR NEGATIVE (Negative); Influenza B PCR NEGATIVE (Negative); Resp Syncy Virus RNA Qual PCR NEGATIVE (Negative); SARS COV2 PCR INHOUSE NEGATIVE (Negative)
--- OUTSIDE RECORDS SUMMARY | 2025-01-16 13:21 | XMS_ITS | Data Portability ---
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 Plan of Treatment Reminders Order Date Submit Date Provider Last Modified By Organization Details Last Modified Time Details Appointments None record ed. Lab None record ed. Referral None record ed. Procedures None record ed. Surgeries None record ed. Imaging None record ed. Medication Orders None record ed. Patient TargetsNo targets recorded. Patient InstructionsNo instructions recorded. Reason for Referral None Reported. Problems Name Problem SNOMED Code Status Onset Date Resolution Date Notes Provider Name and Address Organization Details Recorded Time Idiopathic osteoarthri tis [id number] Active 2016 Problem Code: M17.11; Problem Code Type: ICD-10; Status: 'A'; Not Available [facility] 11:59:02 Problem Notes None recorded. Procedures Surgical History Date Name Laterality Status Provider Name and Address Organization Details Recorded Time 10/05/2024 Sports Knee 4&1 completed Dallas Nava PA-C [address], [place], [address], [facility] 10/05/2024 12:55:16 07/06/2024 Sports Knee 4&1 completed Dallas Nava PA-C [address], [place], [address], [facility] 07/06/2024 15:14:50 12/20/2023 Sports Knee 4&1 cancelled Dallas Nava PA-C [address], [place], [address], [facility] 11/17/2023 12:59:33 Imaging Results None recorded. Procedure Notes None recorded. Medical Equipment None Reported. Allergies No known drug allergies Medications Name Sig Start Date Stop Date Status Note LastModified by Organization Details LastModified Time carisoprodo l 350 mg tablet TAKE 1 TABLET BY MOUTH FOUR TIMES DAILY NEEDED FOR PAIN active Not Available Not Available No t Available atorvastati n 80 mg tablet TAKE 1 TABLET BY MOUTH EVERY NIGHT AT BEDTIME active Not Available Not Available No t Available lidocaine 5 % topical cream APPLY TOPICALLY TO THE AFFECTED AREA THREE TIMES DAILY active Not Available Not Available No t Available meloxicam 15 mg tablet TAKE 1 TABLET BY MOUTH DAILY CAN NOT TAKE ASPIRIN OR ANY OTHER NSAIDS WITH THIS MEDICINE active Not Available Not Available No t Available aspirin 81 mg tablet,patricio yed release TAKE 1 TABLET BY MOUTH DAILY active Not Available Not Available No t Available tamsulosin 0.4 mg capsule TAKE 1 CAPSULE BY MOUTH EVERY DAY active Not Available Not Available No t Available amlodipine 10 mg tablet TAKE 1 TABLET BY MOUTH DAILY active Not Available Not Available No t Available pseudoephed rine-guaife nesin ER 80-700 mg tablet,exte nded release 1TAB Q4-[address] WHILE ON THIS MEDICATIO N 04/19 completed Statu s: 'Disc ontin ued'; Not Available Not Available Not Available aspirin 81 mg chewable tablet Chew 1 tablet every day by oral route. active Not Available Not Available No t Available atenolol 50 mg tablet TAKE 1 TABLET BY MOUTH DAILY active Not Available Not Available No t Available diazepam 5 mg tablet TAKE 1 TABLET BY MOUTH TWICE DAILY active Not Available Not Available No t Available CoQ-10 active Not Available Not Availa ble Not Available oxycodone HCl-oxycodo ne-ASA oxyCODONE HCl 5MG Tablet 1 every 4 - 6 hours as needed 04/19 completed Statu s: 'Disc ontin ued'; Not Available Not Available Not Available buprenorphi ne 2 mg-naloxone 0.[address] FILM UNDER THE TONGUE ONCE A DAY active Not Available Not Available No t Available Suboxone 4 mg-1 mg sublingual film DISSOLVE 1 FILM UNDER THE TONGUE ONCE A DAY active Not Available Not Available No t Available Centrum Adult 50 Plus 80 mcg chewable tablet Take by oral route. active Not Available Not Available No t Available Vitals Date Recorded Body height Body mass index (BMI) Body weight Provider Name and Address Organization Details Last Updated DateTime 10/05/2024 175.26 cm 22.4 kg/m2 69388.04 g [facility] 10/05/2024 13:02:07 Date Recorded Body height Body mass index (BMI) Body weight Provider Name and Address Organization Details Last Updated DateTime 07/06/2024 175.26 cm 22.4 kg/m2 00402.04 g [facility] 07/06/2024 15:03:30 Social History None recorded. Functional Status None recorded. Mental Status None recorded. Family History Nothing Reported. Medical History Condition Response Allergies/Hayfever N Coronary Artery Disease N Anxiety/Depression N Breathing or lung disorders N Emphysema N Nerve Disorders N Thyroid Problems N COPD N Pacemaker N Anemia N Kidney/Bladder Problems N Vascular Disease N Heart Trouble N Heart Attack (AR) N Gastrointestinal Disease N Cholesterol Y Diabetes N Autoimmune disease N Bleeding Disorder N Inflammatory Joint disease N Orthotics N Arthritis N Seizures/Epilepsy N Blood Clot N AIDS/HIV N Congestive Heart Failure (CHF) N Acid Reflux (GERD) N Cancer N Stroke N Asthma N Circulation Problems N Peripheral Vascular Disease N Sleep Apnea N Hepatitis N Heart Disease N Rheumatoid Arthritis N Arrhythmia N Pulmonary Embolism N Headaches N Fibromyalgia N Hypertension Y Osteoporosis N Past Encounters Encounter ID Performer Location Encounter Start Date Encounter Closed Date Diagnosis/Indication Diagnosis SNOMED-CT Code Diagnosis ICD10 Code Diagnosis Note [id number] [facility] [address] [place] [address] 07/06/2024 13:50:14 07/30/2024 15:28:56 Osteoarthritis of right knee joint [id number] 17226 M17.11 You have been provided with a cortisone injection in order to reduce the pain and inflammati on that you are experienci ng. The injection consists of two medication s. Cortisone (an anti-infla mmatory that will take 48-72 hours to take effect) and Lidocaine (a numbing agent that will last 2-3 hours). Please note that not everyone will have a lasting response following the injection. PATIENT INSTRUCTIO NSOnce the Lidocaine wears off, you may have an increase in your pain. I recommend icing the affected area for 20 minutes 3-4 times per day.It is recommende d that you refrain from any high level activities using the joint or limb that was injected for approximat shine 24-48 hours. Normal day-to-day activities are generally not a problem.PO SSIBLE SIDE EFFECTSInd ividuals with dark complexion s may experience some skin discolorat ion locally at the site of the injection. There is the possibilit y of an increase in discomfort within 48 hours following the injection. This is called a ? f lare? . To help minimize the chances of this, please see the post-injec tion instructio ns above.Ther e is a less than 1% chance of an infection. If you notice any signs of infection (redness, warmth, drainage, fever greater than 100 degrees) please call our office or contact us through the portal [facility]. [id number] [facility] ALBERTO [facility] [address] [place] [address] 10/05/2024 12:56:20 10/24/2024 13:52:14 Osteoarthritis of right knee joint [id number] 38392 M17.11 You have been provided with a cortisone injection in order to reduce the pain and inflammati on that you are experienci ng. The injection consists of two medication s. Cortisone (an anti-infla mmatory that will take 48-72 hours to take effect) and Lidocaine (a numbing agent that will last 2-3 hours). Please note that not everyone will have a lasting response following the injection. PATIENT INSTRUCTIO NSOnce the Lidocaine wears off, you may have an increase in your pain. I recommend icing the affected area for 20 minutes 3-4 times per day.It is recommende d that you refrain from any high level activities using the joint or limb that was injected for approximat shine 24-48 hours. Normal day-to-day activities are generally not a problem.PO SSIBLE SIDE EFFECTSInd ividuals with dark complexion s may experience some skin discolorat ion locally at the site of the injection. There is the possibilit y of an increase in discomfort within 48 hours following the injection. This is called a ? f lare? . To help minimize the chances of this, please see the post-injec tion alizeio ns above.Ther e is a less than 1% chance of an infection. If you notice any signs of infection (redness, warmth, drainage, fever greater than 100 degrees) please call our office or contact us through the portal [facility]. Health Concerns Section Related Observation LastModified by Organization Detai ls LastModified Time None Recorded Concern Status LastModified by Organization Details LastModified Time None Recorded Advance Directives Directive None Recorded Payers Encounter Date Sequence Insurance Name Policy Number Policy Wills Covered Member ID Wills Member ID Guarantor Name 07/06/2024 1 [place] [employer] Rubén Gregory [id number] Rubén Gregory 10/05/2024 1 [place] [employer] Rubén Gregory [id number] Rubén Gregory Notes Date Note Type Note Provider Name and Address Organization Details Recorded Time 07/06/2024 text/html I am seeing the patient today under the supervision of who was available but who did not see the patient. HPI: Patient comes in for recheck of right knee pain. Has known osteoarthritis in the medial compartment of the knee(s). Been treated conservatively with cortisone injection to this point with 8 weeks relief of symptoms. No new injury or modalities. Patient has not followed up for such secondary to other multiple medical conditions. Past family, medical, social history and review of systems has been reviewed, updated and is located in the patient? s chart. Examination:The patient is well appearing and in no apparent distress. Alert and oriented x3. Vital signs per intake sheet. Examination of the right knee reveals no effusion erythema or warmth. Decreased range of motion. Lower extremity varus deformity. Point tender over the medial joint line. Calf soft and nontender. 4+/5 strength of knee flexion extension. Impression: Osteoarthritis Plan: Nature of the diagnosis discussed with the patient today. Both surgical and nonsurgical options were reviewed. This point recommend a repeat cortisone injection. Patient agreed. anterior lateral portal was used. See Procedure note. Follow-up with us in 3 months for discussion of continued conservative management versus total joint arthroplasty. Dallas Nava PA-C [address], [place], [address], [facility] 07/06/2024 15:15:12 10/05/2024 text/html I am seeing the patient today under the supervision of Dr. Sara Borden who was available but who did not see the patient. HPI: Patient comes in for recheck of right knee pain. Has known osteoarthritis in the medial compartment of the knee(s). Been treated conservatively with cortisone injection to this point with 8 weeks relief of symptoms. No new injury or modalities. Patient has not followed up for such secondary to other multiple medical conditions. Past family, medical, social history and review of systems has been reviewed, updated and is located in the patient? s chart. Examination:The patient is well appearing and in no apparent distress. Alert and oriented x3. Vital signs per intake sheet. Examination of the right knee reveals no effusion erythema or warmth. Decreased range of motion. Lower extremity varus deformity. Point tender over the medial joint line. Calf soft and nontender. 4+/5 strength of knee flexion extension. Impression: Osteoarthritis Plan: Nature of the diagnosis discussed with the patient today. Both surgical and nonsurgical options were reviewed. This point recommend a repeat cortisone injection. Patient agreed. anterior medial portal was used. See Procedure note. Follow-up with us in 3 months for discussion of continued conservative management versus total joint arthroplasty. Dallas Nava PA-C [address], [place], [address], [facility] 10/05/2024 13:14:41
--- NOTE | 2025-01-16 13:41 | PC.NURSE ---
Pt making rude comments about staff I don't expect you all to get things right, the staff in the kitchen don't speak Czech so my tray is always going to be messed up . Pt then stated uneducated people work here . This RN educated patient that rude comments are not tolerated
--- NOTE | 2025-01-16 14:36 | MHC.CARE ---
Pt meets the criteria for IPLOC and will remain in the ED on a Section 12a. Provider in agreement.
[2025-01-16] MEDS: hydrOXYzine HCL 25 MG TABLET PO (15:31)
--- NOTE | 2025-01-16 15:52 | PC.NURSE ---
Pt requested a vegetarian meal as he does not eat meat. This RN called kitchen for updated meal. this RN provided patient with vegetarian meal (Veggie burger and green beans). Pt declined meal, stating You see, this is what you people do, you pigeon hole me and automatically give me a veggie burger because I don't eat meat, I don't want any of that shit . Meal was removed from patient's room
--- NOTE | 2025-01-16 17:00 | MHC.EDTECH ---
Patient has $381.00 in the safe with secuirty per pod staff.
[2025-01-16 18:52] VITALS: BP 152/75; PULSE 68; RESP 16; TEMP 36.2; O2SAT 100
[2025-01-16] MEDS: Atorvastatin Calcium 80 MG TABLET PO (21:32)
[2025-01-16] MEDS: diazePAM 5 MG TABLET PO (21:32)
[2025-01-16] MEDS: Tamsulosin HCL 0.4 MG CAPSULE PO (21:32)
[2025-01-16] MEDS: Lidocaine 4 % Patch ADH..PATCH 1 PATCH TRANSDERMA (21:50)
[2025-01-17 02:47] VITALS: BP 158/82; PULSE 74; RESP 16; TEMP 36.7; O2SAT 99
--- NOTE | 2025-01-17 07:21 | PC.NURSE ---
Care of Pt assumed at change of shift. Pt provided with breakfast tray. Pt becomes agitated and refuses his tray stating he will not eat his cheese and egg burrito d/t quintero being on the tray. Tech calls kitchen to request replacement meal--Pt requests eggs and hash browns.
[2025-01-17 08:04] VITALS: BP 156/75; PULSE 87; RESP 18; TEMP 36.4; O2SAT 98
[2025-01-17 09:33] VITALS: BP 156/75
[2025-01-17] MEDS: atenoloL 50 MG TABLET PO (09:33)
[2025-01-17] MEDS: amLODIPine Besylate 10 MG TABLET PO (09:33)
[2025-01-17] MEDS: Buprenorphine/Naloxone 2/0.5mg FILM 1 FILM SUBLINGUAL ×2 (09:34→20:45)
[2025-01-17] MEDS: Hydrocortisone 2.5 % Rectal Cr 30 GM TUBE 1 APPL PR ×2 (09:35→20:45)
--- NOTE | 2025-01-17 10:02 | PC.NURSE ---
Call received from a Didi (Pts outpatient therapist) requesting an update on Pt. At this time no notation found of Pt signing ZAK or giving verbal consent to speak with Didi. This RN takes Didi's contact number ([phone]) and advises will pass it along to Pt--Didi in agreement with this plan. Pt provided with number for Didi and encouraged to use Pt pod phone.
--- NOTE | 2025-01-17 10:43 | PHA.MEDREC ---
Addendum entered by Susy Chance RPh 01/17/25 12:21: Med rec was reviewed by [facility]. Original Note: Pharmacy Consult ? Medication Reconciliation Pharmacy has reviewed the medication reconciliation done by nurse Shelby Jimenez. Patient was just discharged 01/02/25. utilized claims and discharge packet.
[2025-01-17 14:44] VITALS: BP 163/79; PULSE 65; RESP 18; TEMP 36.9; O2SAT 97
[2025-01-17] MEDS: diazePAM 5 MG TABLET PO (14:49)
[2025-01-17] MEDS: hydrOXYzine HCL 25 MG TABLET PO ×2 (14:50→20:44)
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
[2025-01-17] MEDS: carisoprodoL 350 MG TABLET PO ×2 (16:56→20:39)
[2025-01-17] MEDS: Lidocaine 4 % Patch ADH..PATCH 1 PATCH TRANSDERMA (16:57)
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
[2025-01-17 20:05] VITALS: BP 123/65; PULSE 57; RESP 16; TEMP 37.4; O2SAT 99
[2025-01-17] MEDS: Atorvastatin Calcium 80 MG TABLET PO (20:39)
[2025-01-17] MEDS: Tamsulosin HCL 0.4 MG CAPSULE PO (20:39)
[2025-01-18] MEDS: Hydrocortisone 2.5 % Rectal Cr 30 GM TUBE 1 APPL PR ×2 (06:55→11:08)
[2025-01-18 08:19] VITALS: BP 178/87; PULSE 80; RESP 15; TEMP 36.2; O2SAT 99
[2025-01-18 08:33] LABS: Estimated Average Glucose 117 mg/dL; Hemoglobin A1c % 5.7 % (<6.0); Total Hemoglobin (HGBA1C) 3699.6148 umol/L
[2025-01-18] MEDS: atenoloL 50 MG TABLET PO (08:37)
[2025-01-18] MEDS: amLODIPine Besylate 10 MG TABLET PO (08:37)
[2025-01-18] MEDS: Buprenorphine/Naloxone 2/0.5mg FILM 1 FILM SUBLINGUAL (08:37)
[2025-01-18 08:43] LABS: Alanine Aminotransferase 34 U/L (0-40); Albumin Level 4.9 g/dL (3.5-5.0); Alkaline Phosphatase 85 U/L (39-117); Anion Gap 11 (12-20); Aspartate Amino Transferase 31 U/L (5-37); Bilirubin Total 0.5 mg/dL (0.0-1.0); Blood Urea Nitrogen 11 mg/dL (9-16); Calcium 10.2 mg/dL (8.4-10.2); Carbon Dioxide 31 mmol/L (22-29); Chloride 102 mmol/L (96-108); Cholesterol 95 mg/dL (<200); Creatinine Clr Calc Pharmacy 101.1; Estimated Glomerular Filt Rate > 60; Glucose Random 122 mg/dL (60-115); HDL Cholesterol 47 mg/dL (>40); LDL Cholesterol Calculated 34 mg/dL (<100); Potassium 4.1 mmol/L (3.3-5.1); Sodium 140 mmol/L (135-145); Total Protein 7.6 g/dL (6.5-8.0); Triglycerides 72 mg/dL (<150)
[2025-01-18] MEDS: carisoprodoL 350 MG TABLET PO (09:03)
[2025-01-18] MEDS: hydrOXYzine HCL 25 MG TABLET PO (09:03)
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
== END 2025-01-18 14:05 | disposition home or self-care (01) | DRG 882 ==
LOC: HO.ED 01-17 07:33 → HO.PADLT16 01-17 14:14
PROVIDERS: Physician Assistant Medical; Admitting Provider Registered Nurse; Emergency Provider Emergency Medicine; Visit Provider Psychiatry & Neurology Psychiatry
DX: F43.20 Adjustment disorder, unspecified (principal); F11.20 Opioid dependence, uncomplicated; R45.851 Suicidal ideations; Z20.822 Contact with and (suspected) exposure to COVID-19; Z79.899 Other long term (current) drug therapy
CPT/HCPCS: 0241U; 36415; 80053; 80061; 80143; 80179; 80307; 81003; 83036; 85025; 93005; 99285; S9485

== ENCOUNTER → 2025-01-16 11:30 | Outpatient (BNV) | payer MEDICARE, SELFPAY | PROVIDERS: Emergency Provider Emergency Medicine; Visit Provider Internal Medicine | DX: Z13.6 Encounter for screening for cardiovascular disorders (principal) | CPT/HCPCS: 93010 ==

== ENCOUNTER → 2025-01-17 14:10 | Outpatient (BNV) | payer MEDICARE, SELFPAY | PROVIDERS: Admitting Provider Registered Nurse; Emergency Provider Emergency Medicine; Visit Provider Registered Nurse | DX: F43.20 Adjustment disorder, unspecified (principal) | CPT/HCPCS: 90792; 99238 ==

== ENCOUNTER 2025-01-28 04:38 | Emergency (ER) | payer MEDICARE, SELFPAY ==
[2025-01-28] VITALS (7 sets, daily range): BP systolic 150–189; BP diastolic 80–91; PULSE 75–106; RESP 14–16; TEMP 36.3–36.9; O2SAT 95–97; BMI 19.2
[2025-01-28 05:11] LABS: Basophils Absolute Auto 0.1 X10*3/uL (0.0-0.2); Basophils Percent Auto 1.1 % (0-2); Eosinophils Absolute Auto 0.1 X10*3/uL (0.0-0.4); Eosinophils Percent Auto 2.5 % (0-4); Hematocrit 39.8 % (42.0-52.0); Hemoglobin 14.3 g/dl (14.0-18.0); Imm Gran Abs Auto 0.01 X10*3/uL (0.00-0.03); Imm Gran Pct Auto 0.2 % (0.0-0.4); Lymphocytes Absolute Auto 1.8 X10*3/uL (1.2-4.9); Lymphocytes Percent Auto 32.4 % (20-40); MANUAL DIFF FLAG NO; Mean Corpuscular HGB Conc 35.9 g/dl (31.0-36.0); Mean Corpuscular Hemoglobin 32.9 pg (27.0-33.0); Mean Corpuscular Volume 91.5 fL (80.0-98.0); Mean Platelet Volume 9.7 fL (9.4-12.4); Monocytes Absolute Auto 0.4 X10*3/uL (0.1-1.2); Monocytes Percent Auto 7.2 % (2-11); Neutrophils Absolute Auto 3.2 x10*3/uL (2.0-8.3); Neutrophils Percent Auto 56.6 % (45-73); Platelet Count 174 X10*3/uL (160-400); Red Blood Count 4.35 X10*6/uL (4.60-5.80); Red Cell Distribution Width 11.9 % (11.0-16.0); White Blood Count 5.6 X10*3/uL (4.8-10.8)
[2025-01-28 05:24] LABS: Alanine Aminotransferase 23 U/L (0-40); Albumin Level 4.8 g/dL (3.5-5.0); Alkaline Phosphatase 81 U/L (39-117); Anion Gap 15 (12-20); Aspartate Amino Transferase 24 U/L (5-37); Bilirubin Total 0.6 mg/dL (0.0-1.0); Blood Urea Nitrogen 10 mg/dL (9-16); Calcium 9.9 mg/dL (8.4-10.2); Carbon Dioxide 26 mmol/L (22-29); Chloride 105 mmol/L (96-108); Creatinine Clr Calc Pharmacy 92.6; Estimated Glomerular Filt Rate > 60; Ethanol < 10 mg/dL; Glucose Random 124 mg/dL (60-115); Potassium 3.6 mmol/L (3.3-5.1); Sodium 142 mmol/L (135-145); Total Protein 7.2 g/dL (6.5-8.0)
--- NOTE | 2025-01-28 05:28 | PC.NURSE ---
pt was changed over into DHARA melchor. Pt reported SI w/ plan to RN to OD on his meds. 1:1 sitter at bedside.
[2025-01-28 07:45] LABS: Appearance Urine Clear; Color Urine Yellow; Glucose Urine UA Negative (Negative); Leukocyte Esterase Urine Negative (Negative); Nitrite Urine Negative (Negative); PH 6.5 (5.0-9.0); Specific Gravity - Urine 1.015 (1.005-1.025); Urine Blood Negative (Negative); Urine Ketones 15 mg/dL (Negative); Urine Protein Negative (Neg-Trace)
[2025-01-28 07:56] LABS: Amphetamine Screen Urine Not Detected (Not Detect); Barbiturates, Urine Not Detected (Not Detect); Benzodiazepines Screen Urine POSITIVE (Not Detect); Buprenorphine Scr Positive (Not Detect); Cannabinoid Screen Urine POSITIVE (Not Detect); Cocaine Screen Urine Not Detected (Not Detect); Fentanyl, urine Not Detected (Not Detect); Methadone Screen, Urine Not Detected (Not Detect); Opiate Screen Urine Not Detected (Not Detect); Oxycodone Screen Urine Not Detected (Not Detect); Phencyclidine Screen Urine Not Detected (Not Detect)
--- NOTE | 2025-01-28 07:58 | ED.GENADULT ---
HPI - General Adult General Chief complaint: Failure to Thrive Stated complaint: Bladder cancer failure to thrive living conditions Time Seen by Provider: 01/28/25 07:56 Source: patient, EMS, RN notes reviewed and old records reviewed Mode of arrival: EMS Limitations: no limitations History of Present Illness ED Provider: Nora HPI narrative: Patient is a 69-year-old male with history of opioid use disorder, adjustment disorder, bladder cancer presenting to the emergency department via EMS for an episode of acute anxiety. States he was having a panic attack at home because his providers are not prescribing him anxiety medication. States that he needs assistance in sorting out his medications. Specifically requesting hospital admission to have his medications reviewed. Denies suicidal ideation, homicidal ideation, auditory or visual hallucinations. Denies any acute physical complaints. States he has not taken any of his regularly prescribed medications yet this morning. Requiring frequent redirection, perseverating about needing a brief to wear. States that he does not currently have a refrigerator, does not have a mattress to sleep on, and toilet is not in usable condition. MD complaint: anxiety Related Data Home Medications ?Medication ?Instructions ?Recorded ?Confirmed amlodipine 10 mg tablet 10 mg PO DAILY 12/18/24 01/28/25 atenolol 50 mg tablet 50 mg PO DAILY 12/18/24 01/28/25 atorvastatin 80 mg tablet 80 mg PO BEDTIME 12/18/24 01/28/25 buprenorphine 4 mg-naloxone 1 mg 0.5 film sublingual BID 12/18/24 01/28/25 sublingual film (Suboxone) carisoprodol 350 mg tablet 350 mg PO QID PRN pain 12/18/24 01/28/25 diazepam 5 mg tablet 5 mg PO BID PRN Anxiety 12/18/24 01/28/25 tamsulosin 0.4 mg capsule 0.4 mg PO BEDTIME 12/18/24 01/28/25 sennosides 8.6 mg tablet (senna) 17.2 mg PO DAILY PRN constipation 01/17/25 01/28/25 Previous Rx's ?Medication ?Instructions ?Recorded hydrocortisone 2.5 % topical cream 1 appl CO BID PRN Hemorrhoids 30 01/01/25 with perineal applicator days #30 grams (Proctozone-HC) hydroxyzine HCl 25 mg tablet 25 mg PO DAILY PRN mild anxiety 30 01/01/25 days #30 tabs lidocaine 4 % topical patch 1 patch transdermal DAILY PRN 01/01/25 (Lidocaine Pain Relief) local pain 30 days #30 ea Allergies Allergy/AdvReac Type Severity Reaction Status Date / Time No Known Allergies Allergy Verified 01/28/25 04:48 [No Known Allergies*] Review of Systems Review of Systems: As per HPI Yes all other systems are reviewed and are negative Constitutional: Constitutional: Reports as per HPI [facility] Past Medical History Medical History (Updated 01/28/25 @ 11:16 by Amarilis Melendez NP) Suicidal ideation Social History Social History Household Members: None Housing: Apartment Do you presently have visiting nurse or other home services: No Comment: 5 min checks Patient Tobacco Use Status: Never used Tobacco Smoked in Last 30 Days: No Use of substances other than those prescribed or required for medical reasons: No Advance Directives: No Advance Directives Information Provided: No service: No Sexual orientation: Straight/Heterosexual Physical Exam ED Vital Signs: Vital Signs - 24 hr 01/28/25 04:45 01/28/25 04:49 01/28/25 05:09 Temperature 97.8 F 97.8 F Pulse Rate 87 87 Respiratory Rate 16 16 Blood Pressure 189/81 H 189/81 H Pulse Oximetry 97 97 97 Oxygen Delivery Method Room Air Room Air Room Air 01/28/25 07:20 01/28/25 09:32 01/28/25 11:31 Temperature 98.4 F 97.4 F Pulse Rate 79 95 Respiratory Rate 16 16 Blood Pressure 150/90 H 158/91 H 158/91 H Pulse Oximetry 95 96 Oxygen Delivery Method Room Air Room Air BMI result Body Mass Index 19.2 Vital signs have been reviewed and appear to be correct. Blood pressure elevated. Heart rate normal. Respiratory rate normal. Temperature normal. Oxygen saturation normal. Const General: no acute distress, alert and awake Nutritional Appearance: thin Orientation/consciousness: oriented to person, oriented to place, oriented to time and patient oriented x3 Limitations: no limitations HENMT Head: Yes normocephalic and Yes atraumatic Ears: external ears normal General nose exam: Normal external nose present Face and sinus: Yes face symmetric Mouth: oropharynx normal and moist mucous membranes Throat: Yes uvula midline Eyes Pupils: Equal, round and reactive pupils present Neck Neck: Yes normal visual inspection and Yes supple Resp Effort & Inspection: normal respiratory effort and able to speak in complete sentences Auscultation: clear to auscultation bilaterally Cardio Rate: regular rate Rhythm: regular rhythm Heart sounds: S1 normal heart sound present and S2 normal heart sound present GI Palpation (GI): Soft to palpation and nontender Auscultation: normoactive bowel sounds General: Yes no CVA tenderness Back/Spine/Pelvis Back: no CVA tenderness Skin General skin exam: elasticity normal and turgor normal Neuro General: oriented to person, oriented to place, oriented to time, patient oriented x3, gait normal, tone normal, moves all extremities, no focal motor deficits, CN's II-XI intact bilaterally and deep tendon reflexes 2+ bilaterally Cranial nerves: Yes Equal, round and reactive pupils present Cognition (Neuro): normal cognition Motor exam (neuro): 5/5 motor strength present throughout, Normal motor muscle tone present throughout and Motor abnormalities not present Extrem General: Yes full ROM, Yes no pedal edema and Yes no calf tenderness Psych Mental Status: mental status grossly normal Affect: normal affect Thought process: Normal thought process present Medications Administered Generic Name Dose Route Start Last Admin Trade Name Freq PRN Reason Stop Dose Admin Amlodipine Besylate 10 mg 01/28/25 10:30 01/28/25 11:31 Amlodipine Besylate 10 Mg Tablet PO 10 mg DAILY ANTONINA Administration Protocol Buprenorphine/Naloxone 0.5 film 01/28/25 10:30 01/28/25 11:29 Buprenorphine/Naloxone 4/1 Mg Film SUBLINGUAL 0.5 film BID ANTONINA Administration Diazepam 5 mg 01/28/25 10:46 01/28/25 11:31 Diazepam 5 Mg Tablet PO 5 mg BID PRN Administration Anxiety Hydroxyzine HCl 25 mg 01/28/25 10:19 01/28/25 11:31 Hydroxyzine Hcl 25 Mg Tablet PO 25 mg DAILY PRN Administration mild anxiety Medical Decision Making Medical Decision Making MDM Narrative: Patient is a 69-year-old male with history of opioid use disorder, adjustment disorder, bladder cancer presenting to the emergency department via EMS for an episode of acute anxiety. On exam patient is awake, A+Ox3, hypertensive but did not take his BP medications today, VS otherwise WNL, afebrile, normal neurological exam without focal deficits, physical exam findings as above. Given reported symptoms and physical exam findings, initial differential includes but is not limited to anxiety, failure to thrive. Labs unremarkable, urinalysis is without evidence of infection. Susi from CARE team spoke with patient, does not feel he requires formal CARE team evaluation. Will place case management referral and place patient on physician observation. Patient declining to speak with Case Management. No medical necessity for admission and no need for CARE team evaluation. Patient to be discharged at this time, advised to follow up with his PCP. Return with new or concerning symptoms. Differential Diagnosis Differential Diagnoses: The differential diagnosis associated with the presentation includes as [facility] Admission/Observation Consideration of admission/observation: Escalation of care including admission/observation considered Patient would have been admitted to the hospital had their work up had any findings where hospital admission was appropriate and their clinical presentation warranted hospital admission. Consult Healthcare Provider Management of the patient was discussed with: Behavioral Health Provider Lab Data [facility] Lab Attestation statement: I reviewed the patient's lab results. As per [facility] 01/28/25 05:03 01/28/25 05:03 Labs: Lab Results 01/28/25 01/28/25 Range/Units 05:03 07:37 WBC 5.6 (4.8-10.8) X10*3/uL RBC 4.35 L (4.60-5.80) X10*6/uL Hgb 14.3 (14.0-18.0) g/dl Hct 39.8 L (42.0-52.0) % MCV 91.5 (80.0-98.0) fL MCH 32.9 (27.0-33.0) pg MCHC 35.9 (31.0-36.0) g/dl RDW 11.9 (11.0-16.0) % Plt Count 174 (160-400) X10*3/uL MPV 9.7 (9.4-12.4) fL Immature Gran % (Auto) 0.2 (0.0-0.4) % Neut % (Auto) 56.6 (45-73) % Lymph % (Auto) 32.4 (20-40) % [place] % (Auto) 7.2 (2-11) % Eos % (Auto) 2.5 (0-4) % Baso % (Auto) 1.1 (0-2) % Lymph # (Auto) 1.8 (1.2-4.9) X10*3/uL [place] # (Auto) 0.4 (0.1-1.2) X10*3/uL Eos # (Auto) 0.1 (0.0-0.4) X10*3/uL Baso # (Auto) 0.1 (0.0-0.2) X10*3/uL Abs Immat Gran (auto) 0.01 (0.00-0.03) X10*3/uL Absolute Neuts (auto) 3.2 (2.0-8.3) x10*3/uL Absolute Nucleated RBC 0.000 (0.0-0.012) X10*3/uL Nucleated RBC % (auto) 0.0 (0.0-0.2) /100WBC Sodium 142 (135-145) mmol/L Potassium 3.6 (3.3-5.1) mmol/L Chloride 105 (96-108) mmol/L Carbon Dioxide 26 (22-29) mmol/L Anion Gap 15 (12-20) BUN 10 (9-16) mg/dL Creatinine 0.61 (0.5-1.4) mg/dL Estim Creat Clear Calc 92.6 Estimated GFR > 60 Random Glucose 124 H (60-115) mg/dL Calcium 9.9 (8.4-10.2) mg/dL Total Bilirubin 0.6 (0.0-1.0) mg/dL AST 24 (5-37) U/L ALT 23 (0-40) U/L Alkaline Phosphatase 81 (39-117) U/L Total Protein 7.2 (6.5-8.0) g/dL Albumin 4.8 (3.5-5.0) g/dL Urine Color Yellow Urine Appearance Clear Urine pH 6.5 (5.0-9.0) Ur Specific [place] 1.015 (1.005-1.025) Urine Protein Negative (Neg-Trace) mg/dL Urine Glucose (UA) Negative (Negative) mg/dL Urine Ketones 15 (Negative) mg/dL Urine Blood Negative (Negative) Urine Nitrite Negative (Negative) Ur Leukocyte Esterase Negative (Negative) Urine Opiates Screen Not Detected (Not Detect) Ur Buprenorphine Scrn Positive H (Not Detect) ng/mL Ur Oxycodone Screen Not Detected (Not Detect) ng/mL Urine Methadone Screen Not Detected (Not Detect) ng/mL Urine Fentanyl Screen Not Detected (Not Detect) Ur Barbiturates Screen Not Detected (Not Detect) Ur Phencyclidine Scrn Not Detected (Not Detect) Ur Amphetamines Screen Not Detected (Not Detect) U Benzodiazepines Scrn POSITIVE H (Not Detect) Urine Cocaine Screen Not Detected (Not Detect) U Marijuana (THC) Screen POSITIVE H (Not Detect) Ethyl Alcohol < 10 mg/dL External Record Review External record reviewed: Inpatient record, Office record and Outpatient record Discharge Plan Discharge Clinical Impression: Acute anxiety Patient Disposition: Home, Self-Care Instructions: Anxiety (ED) Additional Instructions: You were seen in our Emergency Department today for treatment of a behavioral health issue. It is important after your visit that you follow up with either your behavioral health provider or a primary care doctor within 7 days.? If you have trouble finding a therapist you can reach out to [address] [phone] [facility] [employer] Suicide and Crisis Lifeline can be reached 7 days a week 24 hours a day.? Call [phone] to speak with someone.? Return for any worsening symptoms or concerns such as thoughts of self harm or harm to others. Please call 911 if you feel your mental health is worsening.? Prescriptions: No Action carisoprodol 350 mg tablet 350 mg PO QID PRN (Reason: pain) atorvastatin 80 mg tablet 80 mg PO BEDTIME tamsulosin 0.4 mg capsule 0.4 mg PO BEDTIME amlodipine 10 mg tablet 10 mg PO DAILY atenolol 50 mg tablet 50 mg PO DAILY diazepam 5 mg tablet 5 mg PO BID PRN (Reason: Anxiety) buprenorphine-naloxone [Suboxone] 4-1 mg film 0.5 film sublingual BID hydroxyzine HCl 25 mg Tablet 25 mg PO DAILY PRN (Reason: mild anxiety) 30 Days Qty: 30 0RF hydrocortisone [Proctozone-HC] 2.5 % Cream With Perineal Applicator 1 appl CO BID PRN (Reason: Hemorrhoids) 30 Days Qty: 30 0RF lidocaine [Lidocaine Pain Relief] 4 % Adhesive Patch,Medicated 1 patch transdermal DAILY PRN (Reason: local pain) 30 Days Qty: 30 0RF Protocol: Apply to: Apply to: affected areas sennosides [senna] 8.6 mg tablet 17.2 mg PO DAILY PRN (Reason: constipation) Print Language: Croatian
--- NOTE | 2025-01-28 09:01 | MHC.CARE ---
T/W met with Pt who states he's here for my medication and I had a panic attack. He denies it has anything to do with his living conditions as the triage note indicated. Pt presents as demanding in regard to his medical needs. He denies SI, HI, and A/V/H. Pt does not require any assistance from the CARE team and is cleared. He will be referred to case management for assistance with services in the home as he is requesting that. Pt was informed he needs to follow up with cancer treatment and medical needs OP. He was informed he will not be admitting to a psychiatric unit. Of note, Pt is sexually proactive and is pulling his pants down almost exposing his genitals until redirected.
--- NOTE | 2025-01-28 10:34 | PHA.MEDREC ---
Addendum entered by Susy Chance RPh 01/28/25 10:44: MED REC REVIEWED BY [facility] Original Note: Pharmacy Consult ? Medication Reconciliation Pharmacy reviewed med rec done by nursing. Claims match what is confirmed.
--- NOTE | 2025-01-28 10:52 | PC.NURSE ---
Patient seen by CM. Patient denied CM services at this time. Patient remains in room at this time
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
--- NOTE | 2025-01-28 11:24 | PC.NURSE ---
Pt verbalizes frustration with system providing him healthcare, stating that the system is not meeting his needs. When asked what his needs are pt, storms off into his room
[2025-01-28] MEDS: Buprenorphine/Naloxone 4/1 mg FILM 0.5 FILM SUBLINGUAL (11:29)
[2025-01-28] MEDS: diazePAM 5 MG TABLET PO (11:31)
[2025-01-28] MEDS: amLODIPine Besylate 10 MG TABLET PO (11:31)
[2025-01-28] MEDS: hydrOXYzine HCL 25 MG TABLET PO (11:31)
== END 2025-01-28 12:07 | disposition home or self-care (01) ==
PROVIDERS: Emergency Provider Emergency Medicine Emergency Medical Services; PCP Pediatrics
DX: F41.9 Anxiety disorder, unspecified (principal); F43.20 Adjustment disorder, unspecified; F11.20 Opioid dependence, uncomplicated; Z85.51 Personal history of malignant neoplasm of bladder; Z79.02 Long term (current) use of antithrombotics/antiplatelets
CPT/HCPCS: 36415; 80053; 80307; 81003; 85025; 99285

== ENCOUNTER 2025-03-05 09:50 | Inpatient (IN) | payer MEDICARE, SELFPAY ==
--- NOTE | 2025-03-05 09:52 | ED.PSYCH ---
HPI - Psych General Chief Complaint: Psychiatric Symptoms Stated Complaint: SI, has cancer wants to end it Time Seen by Provider: 03/05/25 09:52 Source: patient, EMS, RN notes reviewed and old records reviewed Mode of arrival: EMS Limitations: no limitations History of Present Illness ED Provider: Nora HPI Narrative: Patient is a 69-year-old male with reported history of CAD status post PCI, hyperlipidemia, hypertension, MDD, mood disorder, polysubstance use (EtOH and opiates on Suboxone), Bladder cancer status post TURBT on 07/31/2024 currently undergoing chemotherapy, prior gastric perforation, known AAA (4.2 cm infrarenal), GERD, alcohol use disorder remission presenting to the emergency department after his home health care worker called EMS as patient was reporting suicidal ideation with plan to slit his wrists. Patient reports that he was recently admitted to [facility] for an overdose of Suboxone, however, upon review of EMR, this is not able to be verified. He denies HI, AH, VH. He complains of chronic right knee pain and requests a lidocaine patch. He admits to cannbis use, denies other drug or alcohol use. MD complaint: suicidal ideation Related Data Home Medications ?Medication ?Instructions ?Recorded ?Confirmed amlodipine 10 mg tablet 10 mg PO DAILY 12/18/24 03/05/25 atenolol 50 mg tablet 50 mg PO DAILY 12/18/24 03/05/25 atorvastatin 80 mg tablet 80 mg PO BEDTIME 12/18/24 03/05/25 buprenorphine 4 mg-naloxone 1 mg 1 film sublingual DAILY 12/18/24 03/05/25 sublingual film (Suboxone) carisoprodol 350 mg tablet 350 mg PO QID PRN pain 12/18/24 03/05/25 tamsulosin 0.4 mg capsule 0.4 mg PO BEDTIME 12/18/24 03/05/25 sennosides 8.6 mg tablet (senna) 17.2 mg PO DAILY PRN constipation 01/17/25 03/05/25 aspirin 81 mg tablet,delayed 81 mg PO DAILY 03/05/25 03/05/25 release Previous Rx's ?Medication ?Instructions ?Recorded hydrocortisone 2.5 % topical cream 1 appl AZ BID PRN Hemorrhoids 30 01/01/25 with perineal applicator days #30 grams (Proctozone-HC) hydroxyzine HCl 25 mg tablet 25 mg PO DAILY PRN mild anxiety 30 01/01/25 days #30 tabs lidocaine 4 % topical patch 1 patch transdermal DAILY PRN 01/01/25 (Lidocaine Pain Relief) local pain 30 days #30 ea Allergies Allergy/AdvReac Type Severity Reaction Status Date / Time No Known Allergies (No Known Allergy Verified 03/05/25 10:12 Allergies*) Review of Systems Review of Systems: As per HPI Yes all other systems are reviewed and are negative Constitutional: Constitutional: Reports as per HPI [facility] Past Medical History Medical History (Updated 03/05/25 @ 12:26 by Amarilis Melendez NP) Suicidal ideation Social History Social History Household Members: None Housing: Apartment Do you presently have visiting nurse or other home services: No Comment: 5 min checks Patient Tobacco Use Status: Never used Tobacco Smoked in Last 30 Days: No Use of substances other than those prescribed or required for medical reasons: Yes Substance Use Type: Marijuana Advance Directives: No Advance Directives Information Provided: No service: No Sexual orientation: Straight/Heterosexual Physical Exam Vital Signs: Vital Signs: Last Vital Signs Temp 98.6 F 03/06/25 08:18 Pulse 65 03/06/25 08:18 Resp 12 03/06/25 08:18 BP 123/64 03/06/25 08:18 Pulse Ox 99 03/06/25 08:18 O2 Del Method Room Air 03/06/25 08:18 BMI result Body Mass Index 18.8 Vital signs have been reviewed and appear to be correct. Blood pressure elevated. Heart rate normal. Respiratory rate normal. Temperature normal. Oxygen saturation normal. Const: General: cooperative and no acute distress Orientation/consciousness: oriented to person, oriented to place, oriented to time and patient oriented x3 Limitations: no limitations HEENT: Head: Yes normocephalic and Yes atraumatic Ears: external ears normal General nose exam: Normal external nose present Face and sinus: Yes face symmetric Mouth: oropharynx normal and moist mucous membranes Throat: Yes uvula midline Eyes: Pupils: Equal, round and reactive pupils present Neck: Neck: Yes normal visual inspection and Yes supple Resp: Effort & Inspection: normal respiratory effort and able to speak in complete sentences Auscultation: clear to auscultation bilaterally Cardio: Rate: regular rate Rhythm: regular rhythm Heart sounds: S1 normal heart sound present and S2 normal heart sound present GI: Palpation (GI): Soft to palpation and nontender Auscultation: normoactive bowel sounds : General: Yes no CVA tenderness Back/Spine/Pelvis: Back: no CVA tenderness Skin: General skin exam: elasticity normal and turgor normal Neuro: General: oriented to person, oriented to place, oriented to time, patient oriented x3, moves all extremities, no focal motor deficits and CN's II-XI intact bilaterally Cranial nerves: Yes Equal, round and reactive pupils present Cognition (Neuro): normal cognition Extrem: General: Yes full ROM, Yes no pedal edema and Yes no calf tenderness Psych: Appearance: grossly normal Mental Status: mental status grossly normal Speech and movement: Pressured speech present Affect: normal affect Attitude: cooperative Thought process: Normal thought process present Thought content: Suicidality present, no homicidality and no hallucinations Insight: Fair insight present (Psych) Judgement: Fair judgement present (Psych) Course Reevaluation(s) Reevaluation #1: Time: 08:55 Date: 03/06/25 Provider: Arun Mccarthy MD Patient in physician observation for psychiatric evaluation.? No acute events reported overnight. No current complaints. VS stable.? Patient is in bed search status/pending CARE team evaluation. Will continue to monitor. Reevaluation #2: 03/06/2025 15:37 patient was accepted as an inpatient to the psychiatric unit at this point we will end the ED observation status Time: 15:37 Medications Administered Generic Name Dose Route Start Last Admin Trade Name Joshua PRN Reason Stop Dose Admin Amlodipine Besylate 10 mg 03/06/25 09:00 03/06/25 09:45 Amlodipine Besylate 10 Mg Tablet PO 10 mg DAILY ANTONINA Administration Protocol Aspirin 81 mg 03/06/25 09:00 03/06/25 09:45 Aspirin Enteric Coated 81 Mg Tablet.Dr PO 81 mg DAILY ANTONINA Administration Atenolol 50 mg 03/06/25 09:00 03/06/25 09:45 Atenolol 50 Mg Tablet PO 50 mg DAILY ANTONINA Administration Protocol Atorvastatin Calcium 80 mg 03/05/25 21:00 03/05/25 20:39 Atorvastatin Calcium 80 Mg Tablet PO 80 mg BEDTIME ANTONINA Administration Calcium Carbonate 1,500 mg 03/05/25 19:21 03/05/25 19:43 Calcium Carbonate 750 Mg Tab.Chew PO 1,500 mg Q6H PRN Administration Dyspepsia Carisoprodol 350 mg 03/05/25 21:00 03/06/25 14:13 Carisoprodol 350 Mg Tablet PO Not Given QID ANTONINA Hydroxyzine HCl 25 mg 03/05/25 19:16 03/05/25 20:42 Hydroxyzine Hcl 25 Mg Tablet PO 25 mg DAILY PRN Administration mild anxiety Senna 17.2 mg 03/05/25 19:16 03/06/25 06:21 Sennosides 8.6 Mg Tablet PO 17.2 mg DAILY PRN Administration Constipation Tamsulosin HCl 0.4 mg 03/05/25 21:00 03/05/25 20:40 Tamsulosin Hcl 0.4 Mg Capsule PO 0.4 mg BEDTIME ANTONINA Administration Discontinued Medications Generic Name Dose Route Start Last Admin Trade Name Freq PRN Reason Stop Dose Admin Acetaminophen 975 mg 03/05/25 13:33 03/05/25 13:44 Acetaminophen 325 Mg Tablet PO 03/05/25 13:34 975 mg ONCE ONE Administration Acetaminophen 975 mg 03/06/25 14:06 03/06/25 14:20 Acetaminophen 325 Mg Tablet PO 03/06/25 14:07 975 mg ONCE ONE Administration Buprenorphine/Naloxone 0.5 film 03/05/25 21:00 03/05/25 20:12 Buprenorphine/Naloxone 4/1 Mg Film SUBLINGUAL Not Given BID ANTONINA Buprenorphine/Naloxone 1 film 03/06/25 09:12 03/06/25 09:45 Buprenorphine/Naloxone 4/1 Mg Film SUBLINGUAL 03/06/25 09:13 1 film ONCE ONE Administration Lidocaine 1 patch 03/05/25 10:22 03/05/25 10:30 Lidocaine 4 % Patch Adh..Patch TRANSDERMA 03/05/25 10:23 1 patch ONCE ONE Administration Protocol Medical Decision Making Medical Decision Making MDM Narrative: Patient is a 69-year-old male with reported history of CAD status post PCI, hyperlipidemia, hypertension, MDD, mood disorder, polysubstance use (EtOH and opiates on Suboxone), Bladder cancer status post TURBT on 07/31/2024 currently undergoing chemotherapy, prior gastric perforation, known AAA (4.2 cm infrarenal), GERD, alcohol use disorder remission presenting to the emergency department after his home health care worker called EMS as patient was reporting suicidal ideation with plan to slit his wrists. On exam patient is awake, A+Ox3, VS WNL, afebrile, normal neurological exam without focal deficits, physical exam findings as above. Given reported symptoms and physical exam findings, initial differential includes but is not limited to depression, suicidal ideation. Plan for medical clearance then care team evaluation. 10:49 received call from patient's [employer]ASTEW[employer] TREATMENT SUPERVISOR, [place]ara, who prescribes his suboxone. She reports that he was recently hospitalized inpatient at [facility] for around 10 days after an intentional overdose of Suboxone and benzos. She notes that he was in inpatient bed search at that time but they were unable to locate a bed for him and he was discharged home. She expresses significant concerns about his safety and states he has been decompensating. She states that she has continued to prescribe his suboxone because he has a visiting nurse to administer this to him directly. Labs unremarkable. UA without evidence of infection. Patient medically cleared this time for CARE team eval and placed on physician observation. Differential Diagnosis Differential Diagnoses: The differential diagnosis associated with the presentation includes as per [facility] Admission/Observation Consideration of admission/observation: Escalation of care including admission/observation considered Patient would have been admitted to the hospital had their clinical presentation warranted hospital admission. Lab Data [facility] Lab Attestation statement: I reviewed the patient's lab results. as per [facility] 03/05/25 10:26 03/05/25 10:26 Labs: Lab Results 03/05/25 Range/Units 10:26 WBC 7.4 (4.8-10.8) X10*3/uL RBC 4.03 L (4.60-5.80) X10*6/uL Hgb 13.3 L (14.0-18.0) g/dl Hct 37.2 L (42.0-52.0) % MCV 92.3 (80.0-98.0) fL MCH 33.0 (27.0-33.0) pg MCHC 35.8 (31.0-36.0) g/dl RDW 12.0 (11.0-16.0) % Plt Count 227 D (160-400) X10*3/uL MPV 9.5 (9.4-12.4) fL Immature Gran % (Auto) 0.3 (0.0-0.4) % Neut % (Auto) 74.1 H (45-73) % Lymph % (Auto) 18.4 L (20-40) % [place] % (Auto) 6.2 (2-11) % Eos % (Auto) 0.5 (0-4) % Baso % (Auto) 0.5 (0-2) % Lymph # (Auto) 1.4 (1.2-4.9) X10*3/uL [place] # (Auto) 0.5 (0.1-1.2) X10*3/uL Eos # (Auto) 0.0 (0.0-0.4) X10*3/uL Baso # (Auto) 0.0 (0.0-0.2) X10*3/uL Abs Immat Gran (auto) 0.02 (0.00-0.03) X10*3/uL Absolute Neuts (auto) 5.5 (2.0-8.3) x10*3/uL Absolute Nucleated RBC 0.000 (0.0-0.012) X10*3/uL Nucleated RBC % (auto) 0.0 (0.0-0.2) /100WBC Sodium 140 (135-145) mmol/L Potassium 4.1 (3.3-5.1) mmol/L Chloride 103 (96-108) mmol/L Carbon Dioxide 30 H (22-29) mmol/L Anion Gap 11 L (12-20) BUN 10 (9-16) mg/dL Creatinine 0.57 (0.5-1.4) mg/dL Estim Creat Clear Calc 96.8 Estimated GFR > 60 Random Glucose 162 H (60-115) mg/dL Calcium 9.3 D (8.4-10.2) mg/dL Total Bilirubin 0.5 (0.0-1.0) mg/dL AST 29 (5-37) U/L ALT 38 (0-40) U/L Alkaline Phosphatase 96 (39-117) U/L Total Protein 7.4 (6.5-8.0) g/dL Albumin 4.7 (3.5-5.0) g/dL Urine Color Yellow Urine Appearance Clear Urine pH 7.5 (5.0-9.0) Ur Specific [place] 1.010 (1.005-1.025) Urine Protein Negative (Neg-Trace) mg/dL Urine Glucose (UA) Negative (Negative) mg/dL Urine Ketones Negative (Negative) mg/dL Urine Blood Negative (Negative) Urine Nitrite Negative (Negative) Ur Leukocyte Esterase Negative (Negative) Salicylates < 5.0 L (15-30) mg/dL Urine Opiates Screen Not Detected (Not Detect) Ur Buprenorphine Scrn Positive H (Not Detect) ng/mL Ur Oxycodone Screen Not Detected (Not Detect) ng/mL Urine Methadone Screen Not Detected (Not Detect) ng/mL Urine Fentanyl Screen Not Detected (Not Detect) Acetaminophen 5 (<30) mcg/mL Ur Barbiturates Screen Not Detected (Not Detect) Ur Phencyclidine Scrn Not Detected (Not Detect) Ur Amphetamines Screen Not Detected (Not Detect) U Benzodiazepines Scrn POSITIVE H (Not Detect) Urine Cocaine Screen Not Detected (Not Detect) U Marijuana (THC) Screen POSITIVE H (Not Detect) Ethyl Alcohol < 10 mg/dL Influenza Type A (PCR) NEGATIVE (Negative) Influenza Type B (PCR) NEGATIVE (Negative) RSV RNA Qual (PCR) NEGATIVE (Negative) SARS-CoV-2 RNA (RT-PCR) NEGATIVE (Negative) External Record Review External record reviewed: Inpatient record, Office record, Outpatient record and Outside ED record Discharge Plan Discharge Clinical Impression: Suicidal ideation Prescriptions: No Action carisoprodol 350 mg tablet 350 mg PO QID PRN (Reason: pain) atorvastatin 80 mg tablet 80 mg PO BEDTIME tamsulosin 0.4 mg capsule 0.4 mg PO BEDTIME amlodipine 10 mg tablet 10 mg PO DAILY atenolol 50 mg tablet 50 mg PO DAILY buprenorphine-naloxone [Suboxone] 4-1 mg film 1 film sublingual DAILY hydroxyzine HCl 25 mg Tablet 25 mg PO DAILY PRN (Reason: mild anxiety) 30 Days Qty: 30 0RF hydrocortisone [Proctozone-HC] 2.5 % Cream With Perineal Applicator 1 appl AZ BID PRN (Reason: Hemorrhoids) 30 Days Qty: 30 0RF lidocaine [Lidocaine Pain Relief] 4 % Adhesive Patch,Medicated 1 patch transdermal DAILY PRN (Reason: local pain) 30 Days Qty: 30 0RF Protocol: Apply to: Apply to: affected areas aspirin 81 mg Tablet,Delayed Release (/Ec) 81 mg PO DAILY sennosides [senna] 8.6 mg tablet 17.2 mg PO DAILY PRN (Reason: constipation) Interventions: Marcus-Suicide Risk Severity Scale Last Done: 03/06/25 14:25 Print Language: Malaysian
[2025-03-05 10:01] VITALS: BP 140/72; BP 150/72; PULSE 73; PULSE 74; RESP 16; TEMP 37.4; O2SAT 95; O2SAT 98; BMI 18.8
[2025-03-05 10:21] VITALS: RESP 16
[2025-03-05] MEDS: Lidocaine 4 % Patch ADH..PATCH 1 PATCH TRANSDERMA (10:30)
[2025-03-05 10:32] LABS: MANUAL DIFF FLAG NO
[2025-03-05 10:36] LABS: Hematocrit 37.2 % (42.0-52.0); Hemoglobin 13.3 g/dl (14.0-18.0); Imm Gran Abs Auto 0.02 X10*3/uL (0.00-0.03); Imm Gran Pct Auto 0.3 % (0.0-0.4); Lymphocytes Absolute Auto 1.4 X10*3/uL (1.2-4.9); Mean Corpuscular HGB Conc 35.8 g/dl (31.0-36.0); Mean Corpuscular Hemoglobin 33.0 pg (27.0-33.0); Mean Corpuscular Volume 92.3 fL (80.0-98.0); NRBC Abs Auto 0.000 X10*3/uL (0.0-0.012); NRBC Pct Auto 0.0 /100WBC (0.0-0.2); Platelet Count 227 X10*3/uL (160-400); Red Blood Count 4.03 X10*6/uL (4.60-5.80); White Blood Count 7.4 X10*3/uL (4.8-10.8)
[2025-03-05 10:38] LABS: Appearance Urine Clear; Glucose Urine UA Negative (Negative); PH 7.5 (5.0-9.0); Specific Gravity - Urine 1.010 (1.005-1.025)
[2025-03-05 10:44] LABS: Cannabinoid Screen Urine POSITIVE (Not Detect)
[2025-03-05 10:48] LABS: Acetaminophen LAB 5 mcg/mL (<30); Salicylate < 5.0 mg/dL (15-30)
[2025-03-05 10:49] LABS: Alanine Aminotransferase 38 U/L (0-40); Albumin Level 4.7 g/dL (3.5-5.0); Alkaline Phosphatase 96 U/L (39-117); Anion Gap 11 (12-20); Aspartate Amino Transferase 29 U/L (5-37); Blood Urea Nitrogen 10 mg/dL (9-16); Calcium 9.3 mg/dL (8.4-10.2); Carbon Dioxide 30 mmol/L (22-29); Chloride 103 mmol/L (96-108); Creatinine Clr Calc Pharmacy 96.8; Estimated Glomerular Filt Rate > 60; Potassium 4.1 mmol/L (3.3-5.1); Sodium 140 mmol/L (135-145); Total Protein 7.4 g/dL (6.5-8.0)
--- NOTE | 2025-03-05 10:55 | PC.NURSE ---
Pt is alert/oriented, flight of ideas noted when talking to pt but is answering questions appropriately. Denies AH or VH but reports SI without HI. Pt is calm and cooperative with staff. Lidocaine patch placed to right knee as requested. Pt denies drug or ETOH use but does report occasional marijuana use. Seen by CARE team
--- NOTE | 2025-03-05 11:02 | MHC.EDTECH ---
Assisted RN with a changeover, security at bedside, belongings list completed,patient has $665.00 Lindsay/wallet locked in the SAFE. ALL other belongings locked in the [place] [address]
[2025-03-05 11:23] LABS: Resp Syncy Virus RNA Qual PCR NEGATIVE (Negative); SARS COV2 PCR INHOUSE NEGATIVE (Negative)
--- OUTSIDE RECORDS SUMMARY | 2025-03-05 11:37 | XMS_ITS | Encounter Summary ---
Author Organization [employer] Address [address] [place] [address] Care Team Providers Care Home Health Occupational Therapist Name Role Phone Unavailable Primary Care Provider Unavailabl e Encounter Details Date Type Department Care Team (Latest Contact Info) Description 06/22/2022 Abstract C CONVERSIONS Dental, Provider, DDS Social History Tobacco Use Types Packs/Day Years Used Date Smoking Tobacco: Never Assessed Sex and Gender Information Value Date Recorded Sex Assigned at Male 06/14/2022 10:36 AM EDT Legal Sex Male 10:36 AM EDT Gender Identity Male 06/14/2022 10:36 AM EDT Sexual Orientation Straight 06/14/2022 10 :36 AM EDT documented as of this encounter Plan of Treatment Not on file documented as of this encounter Visit Diagnoses Not on filedocumented in this encounter
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
--- OUTSIDE RECORDS SUMMARY | 2025-03-05 11:37 | XMS_ITS | Data Portability ---
Author Organization [facility], [facility] Address [address] [place] [address] Care Team Providers Care Critical Care Clinical Nurse Specialist Name Role Phone SHANTANU HERRERA Primary Care Provider Assessment No assessment recorded. Plan of Treatment [...] Organization Details Recorded Time Idiopathic osteoarthri tis 164836835 Active 2016 Problem Code: M17.11; Problem Code Type: ICD-10; Status: 'A'; Not Available Formerly [facility] 11:59:02 Problem Notes None recorded. Procedures Surgical History Date Name Laterality Status Provider Name and Address Organization Details Recorded Time 10/05/2024 Sports Knee 4&1 completed Dallas Nava PA-C [address], [place], [address], [facility], [facility] 10/05/2024 12:55:16 07/06/2024 Sports Knee 4&1 completed Dallas Nava PA-C [address], [place], [address], [facility], [facility] 07/06/2024 15:14:50 12/20/2023 Sports Knee 4&1 cancelled Dallas Nava PA-C [address], [place], [address], [facility], [facility] 11/17/2023 12:59:33 Imaging Results None recorded. Procedure [...] Updated DateTime 10/05/2024 175.26 cm 22.4 kg/m2 [address]74[address] [facility] 10/05/2024 13:02:07 Date Recorded Body height Body mass index (BMI) Body weight Provider Name and Address Organization Details Last Updated DateTime 07/06/2024 175.26 cm 22.4 kg/m2 98381.04 g [facility] 07/06/2024 15:03:30 Social History None recorded. Functional Status None recorded. Mental Status None recorded. Family History Nothing Reported. Medical History Condition Response Allergies/Hayfever N Coronary Artery Disease N Anxiety/Depression N Breathing or lung disorders N Emphysema N Nerve Disorders N Thyroid Problems N COPD N Pacemaker N Anemia N Kidney/Bladder Problems N Vascular Disease N Heart Trouble N Heart Attack (MD) N Gastrointestinal Disease N Cholesterol Y Diabetes N Autoimmune disease N Inflammatory Joint disease N Bleeding Disorder N Orthotics N Arthritis N Seizures/Epilepsy N [...] SNOMED-CT Code Diagnosis ICD10 Code Diagnosis Note [id number] JESUS ALBERTO Johnson [address] [place] [address] 07/06/2024 13:50:14 07/30/2024 15:28:56 Osteoarthritis of right knee joint [id number] 32220 M17.11 You have been provided with a [...] following the injection. This is called a flare . To help minimize the chances of this, please see the post-injec tion instructio ns above.Ther e is a less than 1% chance of an infection. If you notice any signs of infection (redness, warmth, drainage, fever greater than 100 degrees) please call our office or contact us through the portal [facility]. [id number] JESUS ALBERTO Johnson [address] [place] [address] 10/05/2024 12:56:20 10/24/2024 13:52:14 Osteoarthritis of right knee joint [id number] 17784 M17.11 You have been provided with a [...] following the injection. This is called a flare . To help minimize the chances of [...] Recorded Advance Directives Directive None Recorded Payers Insurance Date Sequence Insurance Name Policy Number Policy Wills Covered Member ID Wills Member ID Guarantor Name 10/26/2024 1 [place] [employer] Rubén Gregory [id number] Rubén Gregory 07/05/2024 2 [place] [employer] Rubén Gregory [id number] Rubén Gregory 08/18/2024 2 [place] [facility] Rubén Gregory [id number] Rubén Gregory Notes Date Note Type Note [...] reviewed, updated and is located in the patient s chart. Examination:The patient is well appearing [...] total joint arthroplasty. Dallas Nava PA-C [address], [place], [address], [place] [facility] 07/06/2024 15:15:12 10/05/2024 text/html I am seeing the patient today under the supervision of Dr. Borden who was available but who did [...] reviewed, updated and is located in the patient s chart. Examination:The patient is well appearing [...] total joint arthroplasty. Dallas Nava PA-C [address], [place], [address], [place] [facility] 10/05/2024 13:14:41
--- NOTE | 2025-03-05 13:49 | PC.NURSE ---
pt verbalizing pain all over body requesting tylenol. one time dose of tylenol ordered/administered at this time. effectiveness pending.
--- NOTE | 2025-03-05 16:59 | PC.NURSE ---
med rec - pt reports that in the morning he takes atenolol 50mg, ASA 81mg, and amlodipine 10mg. At night he takes atorvastatin 80mg, tamsulosin 0.4mg, and Atenolol 50mg. Theses are confirmed with pharmacy claims. PRN hydroxyzine 25mg, Carisoprodol 350mg, hydrocortisone cream and lidocaine patches also updates. Pt states he takes suboxone 4-1. According to pharmacy claims he would have run out yesterday. Pt states that he has been taking diazepam BID PRN but has been out of his script since 02/28 and has not taken it since. Not added to med rec at this time.
--- NOTE | 2025-03-05 17:45 | PC.NURSE ---
pt currently denying SI/HI
--- NOTE | 2025-03-05 17:50 | PC.NURSE ---
Diazepam DC'ed off med rec so admissions could have a complete med rec.
[2025-03-05 20:19] VITALS: BP 112/53; PULSE 69; RESP 18; TEMP 36.4; O2SAT 100
--- NOTE | 2025-03-06 | ECG_ITS ---
Test Reason : CECK PROLONG QT Blood Pressure : */* mmHG Vent. Rate : 67 BPM Atrial Rate : 67 BPM P-R Int : 152 ms QRS Dur : 80 ms QT Int : 392 ms P-R-T Axes : 82 84 80 degrees QTcB Int : 414 ms Normal sinus rhythm Minimal voltage criteria for LVH, may be normal variant ( Sokolow-Olivia ) Borderline ECG When compared with ECG of 16-Jan-2025 12:57, No significant change was found Referred By: Arun Mccarthy Electronically Signed By: Galen Bergeron
[2025-03-06 06:19] VITALS: BP 113/56; PULSE 86; RESP 18; TEMP 37.3; O2SAT 100
--- NOTE | 2025-03-06 07:25 | PC.NURSE ---
Assumed care of patient at 0645, patient appears to be in no apparent distress this am, resting in bed watching TV, offering no complaints to this RN. Continue plan of care for Psych Consult
[2025-03-06 08:18] VITALS: BP 123/64; PULSE 65; RESP 12; TEMP 37; O2SAT 99
[2025-03-06] MEDS: Aspirin Enteric Coated 81 MG TABLET.DR PO (09:45)
[2025-03-06] MEDS: Buprenorphine/Naloxone 4/1 mg FILM 1 FILM SUBLINGUAL (09:45)
--- NOTE | 2025-03-06 15:33 | PC.NURSE ---
Report from SARAH Mars. Patient resting and watching TV in common area, sitter in place for safety, awaiting admission to S1
[2025-03-06 17:05] VITALS: BMI 18.5
[2025-03-06 17:06] VITALS: BP 165/77; PULSE 68; RESP 18; TEMP 36.8; O2SAT 96
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
[2025-03-06 20:00] VITALS: BP 132/60; PULSE 76; RESP 16; TEMP 37.1; O2SAT 98
[2025-03-07 08:00] VITALS: BP 116/56; PULSE 76; RESP 19; TEMP 2.5; TEMP 36.5; O2SAT 97
[2025-03-07 08:01] LABS: Hemoglobin A1C 118.2222 umol/L; Total Hemoglobin (HGBA1C) 3412.4656 umol/L
[2025-03-07 08:25] LABS: Alanine Aminotransferase 34 U/L (0-40); Albumin Level 4.6 g/dL (3.5-5.0); Alkaline Phosphatase 98 U/L (39-117); Anion Gap 10 (12-20); Aspartate Amino Transferase 26 U/L (5-37); Blood Urea Nitrogen 10 mg/dL (9-16); Calcium 10.0 mg/dL (8.4-10.2); Carbon Dioxide 29 mmol/L (22-29); Chloride 105 mmol/L (96-108); Cholesterol 91 mg/dL (<200); Creatinine Clr Calc Pharmacy 95.7; Estimated Glomerular Filt Rate > 60; HDL Cholesterol 51 mg/dL (>40); Potassium 3.9 mmol/L (3.3-5.1); Sodium 140 mmol/L (135-145); Total Protein 7.1 g/dL (6.5-8.0); Triglycerides 49 mg/dL (<150)
[2025-03-07 08:27] VITALS: BMI 18.6
[2025-03-07 08:40] LABS: Thyroid Stimulating Hormone 0.55 uIU/mL (0.32-4.0)
[2025-03-07 08:52] LABS: Folate 13.9 ng/mL (> or = 4.0); Vitamin B12 1184 pg/mL (200-900)
[2025-03-07] MEDS: Lidocaine 4 % Patch ADH..PATCH 1 PATCH TRANSDERMA (08:54)
[2025-03-07] MEDS: Aspirin Enteric Coated 81 MG TABLET.DR PO (08:55)
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
[2025-03-07] MEDS: Buprenorphine/Naloxone 4/1 mg FILM 1 FILM SUBLINGUAL (10:35)
[2025-03-07] MEDS: Hydrocortisone 2.5 % Rectal Cr 30 GM TUBE 1 APPL PR (14:08)
[2025-03-07 20:00] VITALS: BP 98/62; PULSE 66; RESP 16; TEMP 36.6; O2SAT 99
[2025-03-08 08:00] VITALS: BP 121/58; PULSE 80; RESP 18; TEMP 36.6; O2SAT 98
[2025-03-08] MEDS: Aspirin Enteric Coated 81 MG TABLET.DR PO (08:38)
[2025-03-08] MEDS: Buprenorphine/Naloxone 4/1 mg FILM 1 FILM SUBLINGUAL (08:38)
[2025-03-08] MEDS: Lidocaine 4 % Patch ADH..PATCH 1 PATCH TRANSDERMA (11:34)
[2025-03-08] MEDS: Milk of Magnesia 30 ML ORAL.SUSP PO (11:34)
[2025-03-08 11:48] VITALS: BMI 18.6
--- NOTE | 2025-03-08 11:58 | MHC.CLN ---
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 DOES NOT EAT FISH. REPORTS 92# WEIGHT LOSS X ONE YEAR BUT UNABLE TO VERIFY. QUALIFIES UNDERWEIGHT WITH BMI=18.6 AND IS 79% IBW. PATIENT CONCERNED WITH BOWELS/CONSTIPATION AT TIME OF VISIT. WOULD LIKE ENSURE SUPPLEMENT. ADDING ENSURE TID TO PROVIDE 1050 KCALS, 60 G PROTEIN. INTAKE AT MEALS APPEARS GOOD. FOLLOW FOR PO INTAKE AND WEIGHT. SEE CLINICAL NUTRITION ASSESSMENT 03/08/25.
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
--- NOTE | 2025-03-08 18:46 | PC.NURSE ---
Patient continues to request enema stating he is unable to move bowels. Per staff patient did move bowels, explained to patient that PRN stool softeners/laxitives will be administered which patient agreed to. Patient received one dose of Milk of Magnesium, no report of BM since.
[2025-03-08 20:00] VITALS: BP 132/60; PULSE 75; RESP 16; TEMP 36.1; O2SAT 98
[2025-03-09 08:00] VITALS: BP 117/58; PULSE 82; RESP 17; TEMP 36.6; O2SAT 97
[2025-03-09] MEDS: Aspirin Enteric Coated 81 MG TABLET.DR PO (08:52)
[2025-03-09] MEDS: Buprenorphine/Naloxone 4/1 mg FILM 1 FILM SUBLINGUAL (08:54)
[2025-03-09 08:55] VITALS: BP 117/58; PULSE 82
[2025-03-09] MEDS: Lidocaine 4 % Patch ADH..PATCH 1 PATCH TRANSDERMA (12:03)
--- NOTE | 2025-03-09 16:44 | P.PNPSI_ITS ---
Subjective Subjective Date of Service: 03/09/25 Reason For Visit: SI Interim History: Patient reported to RN he has SI. When asked about this he says not here. I feel safe here Patient reports high anxiety and depression. Affect not congruent with symptoms. Patient has not had inappropriate behaviors last 24 hours. Tolerating medications well. No side effects. He reports constipation- added lactulose, also on miralax. Review of Systems Review of Systems Pt denies SOB, denies chest pain. No abdominal pain. He reports intermittent constipation due to chronic suboxone use, needs prophylactic tx. Yes all other systems are reviewed and are negative Constitutional: Reports as per HPI Mental Status Exam Mental Status Exam Narrative: Appearance: thin, wearing hospital gown, fair hygiene, in NAD Behavior: overly friendly Psychomotor: no agitation or retardation noted Speech: clear, normal rate/rhythm/volume, spontaneous TP: linear TC:feeling better, no particular complaint Mood: can be better Affect: overtly bright, non labile, much brighter than reported mood. SI: pt presents as future oriented, brighter affect, does report when asked directly suicidal ideation but no plan or intent. HI: none VH/AH: none Delusions: none Insight/judgment: poor x 2. memory/cog: alert, oriented x 3. grossly intact to conversational testing but awaiting formal testing. Diagnostics Vital Signs (24Hr): Vital Signs - 24 hr 03/08/25 20:00 03/09/25 08:00 03/09/25 08:55 Temperature 97 F 97.8 F Pulse Rate 75 82 82 Respiratory Rate 16 17 Blood Pressure 132/60 117/58 L 117/58 L Pulse Oximetry 98 97 Oxygen Delivery Method Room Air Room Air BMI result Body Mass Index 18.6 Labs 03/05/25 10:26 03/07/25 07:34 Medications Medications Current Medications Acetaminophen (Acetaminophen 325 Mg Tablet) 650 mg PO Q6H PRN PRN Reason: Headache/Pain, Scale 1-10 Last Admin: 03/09/25 13:06 Dose: 650 mg Al Hydroxide/Mg Hydroxide (Magnesium Hydrox/Alum Hydrox 30 Ml Oral.Susp) 30 ml PO Q6H PRN PRN Reason: Heartburn/Nausea Aspirin (Aspirin Enteric Coated 81 Mg Tablet.) 81 mg PO DAILY [facility] Last Admin: 03/09/25 08:52 Dose: 81 mg Atenolol (Atenolol 50 Mg Tablet) 50 mg PO DAILY [facility]; Protocol Last Admin: 03/09/25 08:55 Dose: 50 mg Atorvastatin Calcium (Atorvastatin Calcium 80 Mg Tablet) 80 mg PO BEDTIME [facility] Last Admin: 03/08/25 20:33 Dose: 80 mg Buprenorphine/Naloxone (Buprenorphine/Naloxone 4/1 Mg Film) 1 film SUBLINGUAL DAILY [facility] Last Admin: 03/09/25 08:54 Dose: 1 film Calcium Carbonate (Calcium Carbonate 750 Mg Tab.Chew) 1,500 mg PO Q6H PRN PRN Reason: Dyspepsia Last Admin: 03/05/25 19:43 Dose: 1,500 mg Carisoprodol (Carisoprodol 350 Mg Tablet) 350 mg PO QID [facility] Last Admin: 03/09/25 12:29 Dose: 350 mg Hydrocortisone (Hydrocortisone 2.5 % Rectal Cr 30 Gm Tube) 1 appl LA BID PRN PRN Reason: Hemorrhoids Last Admin: 03/07/25 14:08 Dose: 1 appl Hydroxyzine HCl (Hydroxyzine Hcl 25 Mg Tablet) 25 mg PO BEDTIME [facility] Last Admin: 03/08/25 20:33 Dose: 25 mg Lactulose (Lactulose 20 Gm/30 Ml Solution) 20 gm PO DAILY PRN PRN Reason: Constipation Lidocaine (Lidocaine 4 % Patch Adh..Patch) 1 patch TRANSDERMA DAILY PRN; Protocol PRN Reason: local pain Last Admin: 03/09/25 12:03 Dose: 1 patch Magnesium Hydroxide (Milk Of Magnesia 30 Ml Oral.Susp) 30 ml PO DAILY PRN PRN Reason: Constipation Last Admin: 03/08/25 11:34 Dose: 30 ml Polyethylene Glycol (Polyethylene Glycol 3350 17 Gm Powd.Pack) 17 gm PO DAILY PRN PRN Reason: Constipation Senna (Sennosides 8.6 Mg Tablet) 17.2 mg PO DAILY PRN PRN Reason: Constipation Last Admin: 03/06/25 06:21 Dose: 17.2 mg Senna/Docusate Sodium (Sennosides/Docusate Sodium Tablet) 1 tab PO BID PRN PRN Reason: Constipation Last Admin: 03/07/25 09:16 Dose: 1 tab Tamsulosin HCl (Tamsulosin Hcl 0.4 Mg Capsule) 0.4 mg PO BEDTIME [facility] Last Admin: 03/08/25 20:33 Dose: 0.4 mg Trazodone HCl (Trazodone Hcl 50 Mg Tablet) 50 mg PO BEDTIME PRN PRN Reason: Insomnia Last Admin: 03/09/25 01:21 Dose: 50 mg Allergies Allergies Allergy/AdvReac Type Severity Reaction Status Date / Time No Known Allergies (No Known Allergy Verified 03/05/25 10:12 Allergies*) Assessment & Plan Assessment & Plan (1) Personality disorder: Status: Acute Code(s): F60.9 - Personality disorder, unspecified (2) Opioid use disorder, moderate, in sustained remission, dependence: Status: Acute Code(s): F11.21 - Opioid dependence, in remission Plan Mr. Gregory is a 69 year-old male who self presented to [facility] [place] suicidal ideation with plan to cut wrist. He has had 2 other admission for reported suicidal ideation back in 12/2024 and 01/2025 here at [facility] [place]. His overall presentation seems to be incongruent with reported suicidality and depressed mood. Once on the unit, pt seems to be in a rather euthymic mood and mostly declining further changes to medications. There is a disconnect between his frantic report of suicidality when seen by crisis or outpatient providers and how he actually presents on the psychiatric unit. He presents with other elements that point to personality disorder in that he is help seeking-help rejecting, inability to see other peoples needs, poor boundaries, splitting. What is of clinical concern at this time is increase in self harm reports which is new for this patient. I do suspect this increase in self harm reports is not necessarily due to depressed mood or suicidality but other interpersonal dynamics which are not so clear at this point. Discussed with patient goals of inpatient admission including diagnostic clarification (again his reported symptoms alone are not the only clinical information that guides diagnosis) and harm reduction (again not necessarily due to suicidality but poor insight and impulsive tendencies) and connection with outpatient providers (as most effective treatment in this situation is outpatient treatment). We discussed risks, benefits and alternative treatment options, continue hydroxizine for sleep. May consider mood stabilizer. 03/08 continue tx. discussed clear boundaries with female staff and peers. lack of boundaries is not due to labile mood, nor psychosis. therefore, informed that if continued inappropriate boundaries pt will be administratively discharge. also discussed with pt, that maintaince of healthy boundaries is not in addition to treatment but it is the treatment. 03/09: Continue current management and treatment plan. Reason for continued inpatient stay Substantial Risk for: harm to self and rapid decompensation Time Spent With Patient Time: Total time managing care of this patient today ____ minutes.
[2025-03-09 20:00] VITALS: BP 149/66; PULSE 64; RESP 16; TEMP 36.6; O2SAT 97
[2025-03-10 08:45] VITALS: BP 121/60; PULSE 73; RESP 16; TEMP 36.3; O2SAT 98
[2025-03-10 10:23] VITALS: BP 121/60; PULSE 73
[2025-03-10] MEDS: Buprenorphine/Naloxone 4/1 mg FILM 1 FILM SUBLINGUAL (10:23)
[2025-03-10] MEDS: Aspirin Enteric Coated 81 MG TABLET.DR PO (10:23)
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
[2025-03-10 20:00] VITALS: BP 143/66; PULSE 72; RESP 16; TEMP 36.6; O2SAT 98
--- NOTE | 2025-03-11 08:34 | P.PNPSI_ITS ---
Subjective Subjective Date of Service: 03/11/25 Reason For Visit: SI Subjective Notes: Conditional Voluntary Interim History: Per nursing, pt slept most of the night. hOwever, pt reports broken sleep. He reports he has many supports and is glad they are helping him. No VH/AH. No delusions. He has been more appropriate in terms of boundaries with females and other staff. No aggression towards self. taking medications. we discussed starting remeron 15mg po qhs. denies constipation. Medication Compliance: Yes Mental Status Exam Mental Status Exam Narrative: Appearance: thin, wearing hospital gown, fair hygiene, in NAD Behavior: overly friendly Psychomotor: no agitation or retardation noted Speech: clear, normal rate/rhythm/volume, spontaneous TP: linear TC:feeling better, no particular complaint Mood: can be better Affect: overtly bright, non labile, much brighter than reported mood. SI: pt presents as future oriented, brighter affect, does report when asked directly suicidal ideation but no plan or intent. HI: none VH/AH: none Delusions: none Insight/judgment: poor x 2. memory/cog: alert, oriented x 3. grossly intact to conversational testing but awaiting formal testing. Diagnostics Vital Signs (24Hr): Vital Signs - 24 hr 03/10/25 08:45 03/10/25 10:23 03/10/25 20:00 Temperature 97.3 F 97.9 F Pulse Rate 73 73 72 Respiratory Rate 16 16 Blood Pressure 121/60 121/60 143/66 H Pulse Oximetry 98 98 Oxygen Delivery Method Room Air BMI result Body Mass Index 18.6 Labs 03/05/25 10:26 03/07/25 07:34 Medications Medications Current Medications Acetaminophen (Acetaminophen 325 Mg Tablet) 650 mg PO Q6H PRN PRN Reason: Headache/Pain, Scale 1-10 Last Admin: 03/11/25 06:25 Dose: 650 mg Al Hydroxide/Mg Hydroxide (Magnesium Hydrox/Alum Hydrox 30 Ml Oral.Susp) 30 ml PO Q6H PRN PRN Reason: Heartburn/Nausea Aspirin (Aspirin Enteric Coated 81 Mg Tablet.) 81 mg PO DAILY REPLACED BY [facility] Last Admin: 03/10/25 10:23 Dose: 81 mg Atenolol (Atenolol 50 Mg Tablet) 50 mg PO DAILY [facility]PLAC[facility] BY [facility]; Protocol Last Admin: 03/10/25 10:23 Dose: 50 mg Atorvastatin Calcium (Atorvastatin Calcium 80 Mg Tablet) 80 mg PO BEDTIME [facility] Last Admin: 03/10/25 21:07 Dose: 80 mg Buprenorphine/Naloxone (Buprenorphine/Naloxone 4/1 Mg Film) 1 film SUBLINGUAL DAILY [facility] Last Admin: 03/10/25 10:23 Dose: 1 film Calcium Carbonate (Calcium Carbonate 750 Mg Tab.Chew) 1,500 mg PO Q6H PRN PRN Reason: Dyspepsia Last Admin: 03/05/25 19:43 Dose: 1,500 mg Carisoprodol (Carisoprodol 350 Mg Tablet) 350 mg PO QID [facility] Last Admin: 03/10/25 21:07 Dose: 350 mg Hydrocortisone (Hydrocortisone 2.5 % Rectal Cr 30 Gm Tube) 1 appl [place] BID PRN PRN Reason: Hemorrhoids Last Admin: 03/07/25 14:08 Dose: 1 appl Hydroxyzine HCl (Hydroxyzine Hcl 25 Mg Tablet) 25 mg PO BEDTIME [facility] Last Admin: 03/10/25 21:06 Dose: 25 mg Lactulose (Lactulose 20 Gm/30 Ml Solution) 20 gm PO DAILY PRN PRN Reason: Constipation Lidocaine (Lidocaine 4 % Patch Adh..Patch) 1 patch TRANSDERMA DAILY PRN; Protocol PRN Reason: local pain Last Admin: 03/09/25 12:03 Dose: 1 patch Magnesium Hydroxide (Milk Of Magnesia 30 Ml Oral.Susp) 30 ml PO DAILY PRN PRN Reason: Constipation Last Admin: 03/08/25 11:34 Dose: 30 ml Polyethylene Glycol (Polyethylene Glycol 3350 17 Gm Powd.Pack) 17 gm PO DAILY PRN PRN Reason: Constipation Senna (Sennosides 8.6 Mg Tablet) 17.2 mg PO DAILY PRN PRN Reason: Constipation Last Admin: 03/06/25 06:21 Dose: 17.2 mg Senna/Docusate Sodium (Sennosides/Docusate Sodium Tablet) 1 tab PO BID PRN PRN Reason: Constipation Last Admin: 03/07/25 09:16 Dose: 1 tab Tamsulosin HCl (Tamsulosin Hcl 0.4 Mg Capsule) 0.4 mg PO BEDTIME [facility] Last Admin: 03/10/25 21:07 Dose: 0.4 mg Trazodone HCl (Trazodone Hcl 50 Mg Tablet) 50 mg PO BEDTIME PRN PRN Reason: Insomnia Last Admin: 03/10/25 21:07 Dose: 50 mg Allergies Allergies Allergy/AdvReac Type Severity Reaction Status Date / Time No Known Allergies (No Known Allergy Verified 03/05/25 10:12 Allergies*) Assessment & Plan Assessment & Plan (1) Personality disorder: Status: Acute Code(s): F60.9 - Personality disorder, unspecified (2) Opioid use disorder, moderate, in sustained remission, dependence: Status: Acute Code(s): F11.21 - Opioid dependence, in remission Plan Mr. Gregory is a 69 year-old male who self presented to [facility] [place] reporting suicidal ideation with plan to cut wrist. He has had 2 other admission for reported suicidal ideation back in 12/2024 and 01/2025 here at [facility] [place]. His overall presentation seems to be incongruent with reported suicidality and depressed mood. Once on the unit, pt seems to be in a rather euthymic mood and mostly declining further changes to medications. There is a disconnect between his frantic report of suicidality when seen by crisis or outpatient providers and how he actually presents on the psychiatric unit. He presents with other elements that point to personality disorder in that he is help seeking-help rejecting, inability to see other peoples needs, poor boundaries, splitting. What is of clinical concern at this time is increase in self harm reports which is new for this patient. I do suspect this increase in self harm reports is not necessarily due to depressed mood or suicidality but other interpersonal dynamics which are not so clear at this point. Discussed with patient goals of inpatient admission including diagnostic clarification (again his reported symptoms alone are not the only clinical information that guides diagnosis) and harm reduction (again not necessarily due to suicidality but poor insight and impulsive tendencies) and connection with outpatient providers (as most effective treatment in this situation is outpatient treatment). We discussed risks, benefits and alternative treatment options, continue hydroxizine for sleep. May consider mood stabilizer. 03/08 continue tx. discussed clear boundaries with female staff and peers. lack of boundaries is not due to labile mood, nor psychosis. therefore, informed that if continued inappropriate boundaries pt will be administratively discharge. also discussed with pt, that maintaince of healthy boundaries is not in addition to treatment but it is the treatment. 03/09: Continue current management and treatment plan. 03/10: continue current management and treatment plan. 7/28 continue tx. start remeron 15mg po qhs. Reason for continued inpatient stay Substantial Risk for: inability to function Time Spent With Patient Time: Total time managing care of this patient today ____ minutes.
[2025-03-11 08:43] VITALS: BP 149/68; PULSE 75; RESP 15; TEMP 36.8; O2SAT 97
[2025-03-11] MEDS: Buprenorphine/Naloxone 4/1 mg FILM 1 FILM SUBLINGUAL (08:45)
[2025-03-11] MEDS: Aspirin Enteric Coated 81 MG TABLET.DR PO (08:45)
--- NOTE | 2025-03-11 12:48 | MHC.CLN ---
F/U DIET=VEGETARIAN ENSURE TID PROVIDES 1050 KCALS, 60 G PROTEIN. INTAKE AT MEALS APPEARS GOOD, 50-100%. QUALIFIES UNDERWEIGHT WITH BMI=18.6. FOLLOW FOR PO INTAKE AND WEIGHT. RD TO MONITOR WEEKLY.
[2025-03-11 20:00] VITALS: BP 152/68; PULSE 71; RESP 16; TEMP 37.1; O2SAT 97
[2025-03-12 08:00] VITALS: BP 139/67; PULSE 84; RESP 16; TEMP 36.2; O2SAT 97
[2025-03-12] MEDS: Aspirin Enteric Coated 81 MG TABLET.DR PO (08:56)
[2025-03-12 08:57] VITALS: BP 139/65; PULSE 91
[2025-03-12] MEDS: Buprenorphine/Naloxone 4/1 mg FILM 1 FILM SUBLINGUAL (09:00)
[2025-03-12] MEDS: Lidocaine 4 % Patch ADH..PATCH 1 PATCH TRANSDERMA (11:09)
--- NOTE | 2025-03-12 16:59 | P.PNPSI_ITS ---
Subjective Subjective Date of Service: 03/12/25 Reason For Visit: SI Subjective Notes: Conditional Voluntary Interim History: Pt reports in terms of depression feeling better. No acute SI/HI. He is visible on the unit, social with select peers. He takes medications as prescribed. He has had better boundaries with peers. No aggression towards self or others. Review of Systems Review of Systems Pt denies SOB, denies chest pain. No abdominal pain. He reports intermittent constipation due to chronic suboxone use, needs prophylactic tx. Yes all other systems are reviewed and are negative Constitutional: Reports as per HPI Mental Status Exam Mental Status Exam Narrative: Appearance: thin, wearing hospital gown, fair hygiene, in NAD Behavior: overly friendly Psychomotor: no agitation or retardation noted Speech: clear, normal rate/rhythm/volume, spontaneous TP: linear TC:feeling better, no particular complaint Mood: can be better Affect: overtly bright, non labile, much brighter than reported mood. SI: pt presents as future oriented, brighter affect, does report when asked directly suicidal ideation but no plan or intent. HI: none VH/AH: none Delusions: none Insight/judgment: poor x 2. memory/cog: alert, oriented x 3. grossly intact to conversational testing but awaiting formal testing. Diagnostics Vital Signs (24Hr): Vital Signs - 24 hr 03/11/25 20:00 03/12/25 08:00 03/12/25 08:57 Temperature 98.7 F 97.1 F Pulse Rate 71 84 91 Respiratory Rate 16 16 Blood Pressure 152/68 H 139/67 139/65 Pulse Oximetry 97 97 Oxygen Delivery Method Room Air Room Air BMI result Body Mass Index 18.6 Labs 03/05/25 10:26 03/07/25 07:34 Medications Medications Current Medications Acetaminophen (Acetaminophen 325 Mg Tablet) 650 mg PO Q6H PRN PRN Reason: Headache/Pain, Scale 1-10 Last Admin: 03/11/25 16:06 Dose: 650 mg Al Hydroxide/Mg Hydroxide (Magnesium Hydrox/Alum Hydrox 30 Ml Oral.Susp) 30 ml PO Q6H PRN PRN Reason: Heartburn/Nausea Aspirin (Aspirin Enteric Coated 81 Mg Tablet.) 81 mg PO DAILY [facility] Last Admin: 03/12/25 08:56 Dose: 81 mg Atenolol (Atenolol 50 Mg Tablet) 50 mg PO DAILY [facility]; Protocol Last Admin: 03/12/25 08:57 Dose: 50 mg Atorvastatin Calcium (Atorvastatin Calcium 80 Mg Tablet) 80 mg PO BEDTIME [facility] Last Admin: 03/11/25 20:37 Dose: 80 mg Buprenorphine/Naloxone (Buprenorphine/Naloxone 4/1 Mg Film) 1 film SUBLINGUAL DAILY [facility] Last Admin: 03/12/25 09:00 Dose: 1 film Calcium Carbonate (Calcium Carbonate 750 Mg Tab.Chew) 1,500 mg PO Q6H PRN PRN Reason: Dyspepsia Last Admin: 03/05/25 19:43 Dose: 1,500 mg Carisoprodol (Carisoprodol 350 Mg Tablet) 350 mg PO QID [facility] Last Admin: 03/12/25 16:19 Dose: 350 mg Hydrocortisone (Hydrocortisone 2.5 % Rectal Cr 30 Gm Tube) 1 appl [place] BID PRN PRN Reason: Hemorrhoids Last Admin: 03/07/25 14:08 Dose: 1 appl Hydroxyzine HCl (Hydroxyzine Hcl 25 Mg Tablet) 25 mg PO BEDTIME [facility] Last Admin: 03/11/25 20:37 Dose: 25 mg Lactulose (Lactulose 20 Gm/30 Ml Solution) 20 gm PO DAILY PRN PRN Reason: Constipation Lidocaine (Lidocaine 4 % Patch Adh..Patch) 1 patch TRANSDERMA DAILY PRN; Protocol PRN Reason: local pain Last Admin: 03/12/25 11:09 Dose: 1 patch Magnesium Hydroxide (Milk Of Magnesia 30 Ml Oral.Susp) 30 ml PO DAILY PRN PRN Reason: Constipation Last Admin: 03/08/25 11:34 Dose: 30 ml Mirtazapine (Mirtazapine 15 Mg Tablet) 15 mg PO BEDTIME [facility] Polyethylene Glycol (Polyethylene Glycol 3350 17 Gm Powd.Pack) 17 gm PO DAILY PRN PRN Reason: Constipation Senna (Sennosides 8.6 Mg Tablet) 17.2 mg PO DAILY PRN PRN Reason: Constipation Last Admin: 03/06/25 06:21 Dose: 17.2 mg Senna/Docusate Sodium (Sennosides/Docusate Sodium Tablet) 1 tab PO BID PRN PRN Reason: Constipation Last Admin: 03/07/25 09:16 Dose: 1 tab Tamsulosin HCl (Tamsulosin Hcl 0.4 Mg Capsule) 0.4 mg PO BEDTIME [facility] Last Admin: 03/11/25 20:37 Dose: 0.4 mg Trazodone HCl (Trazodone Hcl 50 Mg Tablet) 50 mg PO BEDTIME PRN PRN Reason: Insomnia Last Admin: 03/12/25 01:56 Dose: 50 mg Allergies Allergies Allergy/AdvReac Type Severity Reaction Status Date / Time No Known Allergies (No Known Allergy Verified 03/05/25 10:12 Allergies*) Assessment & Plan Assessment & Plan (1) Personality disorder: Status: Acute Code(s): F60.9 - Personality disorder, unspecified (2) Opioid use disorder, moderate, in sustained remission, dependence: Status: Acute Code(s): F11.21 - Opioid dependence, in remission Plan Mr. Gregory is a 69 year-old male who self presented to [facility] [place] suicidal ideation with plan to cut wrist. He has had 2 other admission for reported suicidal ideation back in 12/2024 and 01/2025 here at [facility] [place]. His overall presentation seems to be incongruent with reported suicidality and depressed mood. Once on the unit, pt seems to be in a rather euthymic mood and mostly declining further changes to medications. There is a disconnect between his frantic report of suicidality when seen by crisis or outpatient providers and how he actually presents on the psychiatric unit. He presents with other elements that point to personality disorder in that he is help seeking-help rejecting, inability to see other peoples needs, poor boundaries, splitting. What is of clinical concern at this time is increase in self harm reports which is new for this patient. I do suspect this increase in self harm reports is not necessarily due to depressed mood or suicidality but other interpersonal dynamics which are not so clear at this point. Discussed with patient goals of inpatient admission including diagnostic clarification (again his reported symptoms alone are not the only clinical information that guides diagnosis) and harm reduction (again not necessarily due to suicidality but poor insight and impulsive tendencies) and connection with outpatient providers (as most effective treatment in this situation is outpatient treatment). We discussed risks, benefits and alternative treatment options, continue hydroxizine for sleep. May consider mood stabilizer. 03/08 continue tx. discussed clear boundaries with female staff and peers. lack of boundaries is not due to labile mood, nor psychosis. therefore, informed that if continued inappropriate boundaries pt will be administratively discharge. also discussed with pt, that maintaince of healthy boundaries is not in addition to treatment but it is the treatment. 03/09: Continue current management and treatment plan. 03/10: continue current management and treatment plan. 03/11 continue tx. start remeron 15mg po qhs. 03/12 continue tx. Reason for continued inpatient stay Substantial Risk for: inability to function Time Spent With Patient Time: Total time managing care of this patient today ____ minutes.
[2025-03-12 20:00] VITALS: BP 135/65; PULSE 71; RESP 16; TEMP 37.3; O2SAT 97
[2025-03-13 07:49] VITALS: BP 138/72; PULSE 90; RESP 16; TEMP 36.7; O2SAT 99
[2025-03-13] MEDS: Aspirin Enteric Coated 81 MG TABLET.DR PO (07:51)
[2025-03-13] MEDS: Buprenorphine/Naloxone 4/1 mg FILM 1 FILM SUBLINGUAL (09:39)
[2025-03-13 11:54] LABS: Appearance Urine Turbid; Glucose Urine UA Negative (Negative); PH >= 9.0 (5.0-9.0); Specific Gravity - Urine 1.015 (1.005-1.025)
--- NOTE | 2025-03-13 19:18 | HO.PSYCHPN ---
Subjective Subjective Date of Service: 03/13/25 Reason For Visit: SI Subjective Notes: Conditional Voluntary Interim History: Pt slept through the night. He reports mood good. He reports burning when urinating. No SI/HI. He reports grateful about providers who are trying to help him. Visible on the unit, social with select peers.no behavioral concerns. Review of Systems Review of Systems Pt denies SOB, denies chest pain. No abdominal pain. He reports intermittent constipation due to chronic suboxone use, needs prophylactic tx. Yes all other systems are reviewed and are negative Constitutional: Reports as per HPI Mental Status Exam Mental Status Exam Narrative: Appearance: thin, wearing hospital gown, fair hygiene, in NAD Behavior: overly friendly Psychomotor: no agitation or retardation noted Speech: clear, normal rate/rhythm/volume, spontaneous TP: linear TC:feeling better, no particular complaint Mood: can be better Affect: overtly bright, non labile, much brighter than reported mood. SI: pt presents as future oriented, brighter affect, does report when asked directly suicidal ideation but no plan or intent. HI: none VH/AH: none Delusions: none Insight/judgment: poor x 2. memory/cog: alert, oriented x 3. grossly intact to conversational testing but awaiting formal testing. Diagnostics Vital Signs (24Hr): Vital Signs - 24 hr 03/12/25 20:00 03/13/25 07:49 Temperature 99.1 F 98.1 F Pulse Rate 71 90 Respiratory Rate 16 16 Blood Pressure 135/65 138/72 Pulse Oximetry 97 99 Oxygen Delivery Method Room Air Room Air BMI result Body Mass Index 18.6 Labs 03/05/25 10:26 03/07/25 07:34 Labs: Laboratory Results - last 48 hr 03/13/25 11:15 Urine Color Yellow Urine Appearance Turbid Urine pH >= 9.0 Ur Specific [place] 1.015 Urine Protein Negative Urine Glucose (UA) Negative Urine Ketones Negative Urine Blood Negative Urine Nitrite Negative Ur Leukocyte Esterase Negative Medications Medications Current Medications Acetaminophen (Acetaminophen 325 Mg Tablet) 650 mg PO Q6H PRN PRN Reason: Headache/Pain, Scale 1-10 Last Admin: 03/11/25 16:06 Dose: 650 mg Al Hydroxide/Mg Hydroxide (Magnesium Hydrox/Alum Hydrox 30 Ml Oral.Susp) 30 ml PO Q6H PRN PRN Reason: Heartburn/Nausea Aspirin (Aspirin Enteric Coated 81 Mg Tablet.) 81 mg PO DAILY [facility] Last Admin: 03/13/25 07:51 Dose: 81 mg Atenolol (Atenolol 50 Mg Tablet) 50 mg PO DAILY [facility]; Protocol Last Admin: 03/13/25 07:51 Dose: 50 mg Atorvastatin Calcium (Atorvastatin Calcium 80 Mg Tablet) 80 mg PO BEDTIME [facility] Last Admin: 03/12/25 20:27 Dose: 80 mg Buprenorphine/Naloxone (Buprenorphine/Naloxone 4/1 Mg Film) 1 film SUBLINGUAL DAILY [facility] Last Admin: 03/13/25 09:39 Dose: 1 film Calcium Carbonate (Calcium Carbonate 750 Mg Tab.Chew) 1,500 mg PO Q6H PRN PRN Reason: Dyspepsia Last Admin: 03/05/25 19:43 Dose: 1,500 mg Carisoprodol (Carisoprodol 350 Mg Tablet) 350 mg PO QID [facility] Last Admin: 03/13/25 16:56 Dose: 350 mg Hydrocortisone (Hydrocortisone 2.5 % Rectal Cr 30 Gm Tube) 1 appl [place] BID PRN PRN Reason: Hemorrhoids Last Admin: 03/07/25 14:08 Dose: 1 appl Hydroxyzine HCl (Hydroxyzine Hcl 25 Mg Tablet) 25 mg PO BEDTIME [facility] Last Admin: 03/12/25 20:27 Dose: 25 mg Lactulose (Lactulose 20 Gm/30 Ml Solution) 20 gm PO DAILY PRN PRN Reason: Constipation Lidocaine (Lidocaine 4 % Patch Adh..Patch) 1 patch TRANSDERMA DAILY PRN; Protocol PRN Reason: local pain Last Admin: 03/12/25 11:09 Dose: 1 patch Magnesium Hydroxide (Milk Of Magnesia 30 Ml Oral.Susp) 30 ml PO DAILY PRN PRN Reason: Constipation Last Admin: 03/08/25 11:34 Dose: 30 ml Mirtazapine (Mirtazapine 15 Mg Tablet) 15 mg PO BEDTIME [facility] Last Admin: 03/12/25 20:27 Dose: 15 mg Polyethylene Glycol (Polyethylene Glycol 3350 17 Gm Powd.Pack) 17 gm PO DAILY PRN PRN Reason: Constipation Senna (Sennosides 8.6 Mg Tablet) 17.2 mg PO DAILY PRN PRN Reason: Constipation Last Admin: 03/06/25 06:21 Dose: 17.2 mg Senna/Docusate Sodium (Sennosides/Docusate Sodium Tablet) 1 tab PO BID PRN PRN Reason: Constipation Last Admin: 03/07/25 09:16 Dose: 1 tab Tamsulosin HCl (Tamsulosin Hcl 0.4 Mg Capsule) 0.4 mg PO BEDTIME [facility] Last Admin: 03/12/25 20:27 Dose: 0.4 mg Trazodone HCl (Trazodone Hcl 50 Mg Tablet) 50 mg PO BEDTIME PRN PRN Reason: Insomnia Last Admin: 03/12/25 20:27 Dose: 50 mg Allergies Allergies Allergy/AdvReac Type Severity Reaction Status Date / Time No Known Allergies (No Known Allergy Verified 03/05/25 10:12 Allergies*) Assessment & Plan Assessment & Plan (1) Personality disorder: Status: Acute Code(s): F60.9 - Personality disorder, unspecified (2) Opioid use disorder, moderate, in sustained remission, dependence: Status: Acute Code(s): F11.21 - Opioid dependence, in remission Plan Mr. Gregory is a 69 year-old male who [place] [facility] [place] ide[place] with plan to cut wrist. He has had 2 other admission for reported suicidal ideation back in 12/2024 and [place] [facility] [place] His overall presentation seems to be incongruent with reported suicidality and depressed mood. Once on the unit, pt seems to be in a rather euthymic mood and mostly declining further changes to medications. There is a disconnect between his frantic report of suicidality when seen by crisis or outpatient providers and how he actually presents on the psychiatric unit. He presents with other elements that point to personality disorder in that he is help seeking-help rejecting, inability to see other peoples needs, poor boundaries, splitting. What is of clinical concern at this time is increase in self harm reports which is new for this patient. I do suspect this increase in self harm reports is not necessarily due to depressed mood or suicidality but other interpersonal dynamics which are not so clear at this point. Discussed with patient goals of inpatient admission including diagnostic clarification (again his reported symptoms alone are not the only clinical information that guides diagnosis) and harm reduction (again not necessarily due to suicidality but poor insight and impulsive tendencies) and connection with outpatient providers (as most effective treatment in this situation is outpatient treatment). We discussed risks, benefits and alternative treatment options, continue hydroxizine for sleep. May consider mood stabilizer. 03/08 continue tx. discussed clear boundaries with female staff and peers. lack of boundaries is not due to labile mood, nor psychosis. therefore, informed that if continued inappropriate boundaries pt will be administratively discharge. also discussed with pt, that maintaince of healthy boundaries is not in addition to treatment but it is the treatment. 03/09: Continue current management and treatment plan. 03/10: continue current management and treatment plan. 03/11 continue tx. start remeron 15mg po qhs. 03/12 continue tx. 03/13 continue tx. ordered UA- pt reports burning when urinating. Reason for continued inpatient stay Substantial Risk for: inability to function Time Spent With Patient Time: Total time managing care of this patient today ____ minutes.
[2025-03-13 20:00] VITALS: BP 128/61; PULSE 69; RESP 16; TEMP 37.1; O2SAT 97
[2025-03-13] MEDS: Lidocaine 4 % Patch ADH..PATCH 1 PATCH TRANSDERMA (21:00)
[2025-03-14 08:12] VITALS: BP 148/67; PULSE 73; RESP 16; TEMP 37; O2SAT 97
[2025-03-14] MEDS: Aspirin Enteric Coated 81 MG TABLET.DR PO (08:15)
[2025-03-14 08:47] VITALS: BMI 19.7
[2025-03-14] MEDS: Buprenorphine/Naloxone 4/1 mg FILM 1 FILM SUBLINGUAL (09:01)
--- NOTE | 2025-03-14 12:02 | HO.PSYCHPN ---
Subjective Subjective Date of Service: 03/14/25 Reason For Visit: SI Subjective Notes: Conditional Voluntary Interim History: Pt sleeping through the night. He is visible on the unit and social with select peers. His affect is bright. NO SI/HI. He is future oriented. He reports he is grateful his outpatient team is helping him, however, case finishing machine adjuster in community along with therapist from [facility] report they delivered bed at home and he declined. No signs of psychosis nor delusions. ACL 4.8 minimal cognitive impairments. Medication Compliance: Yes Side effects from medications: No Review of Systems Review of Systems Pt denies SOB, denies chest pain. No abdominal pain. He reports intermittent constipation due to chronic suboxone use, needs prophylactic tx. Yes all other systems are reviewed and are negative Constitutional: Reports as per HPI Mental Status Exam Mental Status Exam Narrative: Appearance: thin, wearing hospital gown, fair hygiene, in NAD Behavior: overly friendly Psychomotor: no agitation or retardation noted Speech: clear, normal rate/rhythm/volume, spontaneous TP: linear TC:feeling better, no particular complaint Mood: can be better Affect: overtly bright, non labile, much brighter than reported mood. SI: pt presents as future oriented, brighter affect, does report when asked directly suicidal ideation but no plan or intent. HI: none VH/AH: none Delusions: none Insight/judgment: poor x 2. memory/cog: alert, oriented x 3. grossly intact to conversational testing but awaiting formal testing. Diagnostics Vital Signs (24Hr): Vital Signs - 24 hr 03/13/25 20:00 03/14/25 08:12 Temperature 98.7 F 98.6 F Pulse Rate 69 73 Respiratory Rate 16 16 Blood Pressure 128/61 148/67 H Pulse Oximetry 97 97 Oxygen Delivery Method Room Air Room Air BMI result Body Mass Index 19.7 Labs 03/05/25 10:26 03/07/25 07:34 Labs: Laboratory Results - last 48 hr 03/13/25 11:15 Urine Color Yellow Urine Appearance Turbid Urine pH >= 9.0 Ur Specific [place] 1.015 Urine Protein Negative Urine Glucose (UA) Negative Urine Ketones Negative Urine Blood Negative Urine Nitrite Negative Ur Leukocyte Esterase Negative Medications Medications Current Medications Acetaminophen (Acetaminophen 325 Mg Tablet) 650 mg PO Q6H PRN PRN Reason: Headache/Pain, Scale 1-10 Last Admin: 03/11/25 16:06 Dose: 650 mg Al Hydroxide/Mg Hydroxide (Magnesium Hydrox/Alum Hydrox 30 Ml Oral.Susp) 30 ml PO Q6H PRN PRN Reason: Heartburn/Nausea Aspirin (Aspirin Enteric Coated 81 Mg Tablet.Dr) 81 mg PO DAILY [facility] [place] Last Admin: 03/14/25 08:15 Dose: 81 mg Atenolol (Atenolol 50 Mg Tablet) 50 mg PO DAILY [facility] [place]; Protocol Last Admin: 03/14/25 08:15 Dose: 50 mg Atorvastatin Calcium (Atorvastatin Calcium 80 Mg Tablet) 80 mg PO BEDTIME [facility] [place] Last Admin: 03/13/25 20:29 Dose: 80 mg Buprenorphine/Naloxone (Buprenorphine/Naloxone 4/1 Mg Film) 1 film SUBLINGUAL DAILY [facility] [place] Last Admin: 03/14/25 09:01 Dose: 1 film Calcium Carbonate (Calcium Carbonate 750 Mg Tab.Chew) 1,500 mg PO Q6H PRN PRN Reason: Dyspepsia Last Admin: 03/05/25 19:43 Dose: 1,500 mg Carisoprodol (Carisoprodol 350 Mg Tablet) 350 mg PO QID [facility] [place] Last Admin: 03/14/25 08:14 Dose: 350 mg Hydrocortisone (Hydrocortisone 2.5 % Rectal Cr 30 Gm Tube) 1 appl [place] BID PRN PRN Reason: Hemorrhoids Last Admin: 03/07/25 14:08 Dose: 1 appl Hydroxyzine HCl (Hydroxyzine Hcl 25 Mg Tablet) 25 mg PO BEDTIME [facility] [place] Last Admin: 03/13/25 20:30 Dose: 25 mg Lactulose (Lactulose 20 Gm/30 Ml Solution) 20 gm PO DAILY PRN PRN Reason: Constipation Lidocaine (Lidocaine 4 % Patch Adh..Patch) 1 patch TRANSDERMA DAILY PRN; Protocol PRN Reason: local pain Last Admin: 03/13/25 21:00 Dose: 1 patch Magnesium Hydroxide (Milk Of Magnesia 30 Ml Oral.Susp) 30 ml PO DAILY PRN PRN Reason: Constipation Last Admin: 03/08/25 11:34 Dose: 30 ml Mirtazapine (Mirtazapine 15 Mg Tablet) 15 mg PO BEDTIME [facility] [place] Last Admin: 03/13/25 20:29 Dose: 15 mg Polyethylene Glycol (Polyethylene Glycol 3350 17 Gm Powd.Pack) 17 gm PO DAILY PRN PRN Reason: Constipation Senna (Sennosides 8.6 Mg Tablet) 17.2 mg PO DAILY PRN PRN Reason: Constipation Last Admin: 03/06/25 06:21 Dose: 17.2 mg Senna/Docusate Sodium (Sennosides/Docusate Sodium Tablet) 1 tab PO BID PRN PRN Reason: Constipation Last Admin: 03/07/25 09:16 Dose: 1 tab Tamsulosin HCl (Tamsulosin Hcl 0.4 Mg Capsule) 0.4 mg PO BEDTIME [facility] Last Admin: 03/13/25 20:30 Dose: 0.4 mg Trazodone HCl (Trazodone Hcl 50 Mg Tablet) 50 mg PO BEDTIME PRN PRN Reason: Insomnia Last Admin: 03/14/25 00:21 Dose: 50 mg Allergies Allergies Allergy/AdvReac Type Severity Reaction Status Date / Time No Known Allergies (No Known Allergy Verified 03/05/25 10:12 Allergies*) Assessment & Plan Assessment & Plan (1) Personality disorder: Status: Acute Code(s): F60.9 - Personality disorder, unspecified (2) Opioid use disorder, moderate, in sustained remission, dependence: Status: Acute Code(s): F11.21 - Opioid dependence, in remission Plan Mr. Gregory is a 69 year-old male who self presented to [facility] [place] suicidal ideation with plan to cut wrist. He has had 2 other admission for reported suicidal ideation back in 12/2024 and 01/2025 here at [facility] [place]. His overall presentation seems to be incongruent with reported suicidality and depressed mood. Once on the unit, pt seems to be in a rather euthymic mood and mostly declining further changes to medications. There is a disconnect between his frantic report of suicidality when seen by crisis or outpatient providers and how he actually presents on the psychiatric unit. He presents with other elements that point to personality disorder in that he is help seeking-help rejecting, inability to see other peoples needs, poor boundaries, splitting. What is of clinical concern at this time is increase in self harm reports which is new for this patient. I do suspect this increase in self harm reports is not necessarily due to depressed mood or suicidality but other interpersonal dynamics which are not so clear at this point. Discussed with patient goals of inpatient admission including diagnostic clarification (again his reported symptoms alone are not the only clinical information that guides diagnosis) and harm reduction (again not necessarily due to suicidality but poor insight and impulsive tendencies) and connection with outpatient providers (as most effective treatment in this situation is outpatient treatment). We discussed risks, benefits and alternative treatment options, continue hydroxizine for sleep. May consider mood stabilizer. 03/08 continue tx. discussed clear boundaries with female staff and peers. lack of boundaries is not due to labile mood, nor psychosis. therefore, informed that if continued inappropriate boundaries pt will be administratively discharge. also discussed with pt, that maintaince of healthy boundaries is not in addition to treatment but it is the treatment. 03/09: Continue current management and treatment plan. 03/10: continue current management and treatment plan. 03/11 continue tx. start remeron 15mg po qhs. 03/12 continue tx. 03/13 continue tx. ordered UA- pt reports burning when urinating. 03/14 continue tx. UA negative. Reason for continued inpatient stay Substantial Risk for: inability to function Time Spent With Patient Time: Total time managing care of this patient today ____ minutes.
[2025-03-14] MEDS: Magnesium Hydrox/Alum Hydrox 30 ML ORAL.SUSP PO (13:26)
[2025-03-14] MEDS: Hydrocortisone 2.5 % Rectal Cr 30 GM TUBE 1 APPL PR (15:19)
[2025-03-14 20:00] VITALS: BP 150/68; PULSE 72; RESP 18; TEMP 36.9; O2SAT 97
[2025-03-14] MEDS: Lidocaine 4 % Patch ADH..PATCH 1 PATCH TRANSDERMA (20:36)
--- NOTE | 2025-03-15 08:45 | ECG_ITS ---
Test Reason : palpitation Blood Pressure : */* mmHG Vent. Rate : 86 BPM Atrial Rate : 86 BPM P-R Int : 144 ms QRS Dur : 82 ms QT Int : 360 ms P-R-T Axes : 78 79 76 degrees QTcB Int : 430 ms Normal sinus rhythm Minimal voltage criteria for LVH, may be normal variant ( Sokolow-Olivia ) Borderline ECG No previous ECGs available Referred By: Emi Schaefer Electronically Signed By: PETER BRIAN MD
[2025-03-15 09:47] VITALS: BP 137/75; PULSE 88; RESP 16; TEMP 36.8; O2SAT 97
[2025-03-15] MEDS: Buprenorphine/Naloxone 4/1 mg FILM 1 FILM SUBLINGUAL (09:48)
[2025-03-15] MEDS: Aspirin Enteric Coated 81 MG TABLET.DR PO (09:48)
--- NOTE | 2025-03-15 11:00 | PM.PSYDC ---
DS: Providers Provider Date of Service: 03/15/25 Date of admission: 03/06/25 14:54 Date of discharge: 03/15/25 Primary care physician: Randy Fajardo MD Discharging clinician: Emi Schaefer DS: Diagnosis Discharge Diagnosis (1) Personality disorder: Status: Acute (2) Opioid use disorder, moderate, in sustained remission, dependence: Status: Acute DS: Medications Discharge Medications Home Medications: Home Medications ?Medication ?Instructions ?Recorded ?Confirmed atenolol 50 mg tablet 50 mg PO DAILY 12/18/24 03/05/25 atorvastatin 80 mg tablet 80 mg PO BEDTIME 12/18/24 03/05/25 buprenorphine 4 mg-naloxone 1 mg 1 film sublingual DAILY 12/18/24 03/05/25 sublingual film (Suboxone) sennosides 8.6 mg tablet (senna) 17.2 mg PO DAILY PRN constipation 01/17/25 03/05/25 Previous Rx's ?Medication ?Instructions ?Recorded hydrocortisone 2.5 % topical cream 1 appl OR BID PRN Hemorrhoids 30 01/01/25 with perineal applicator days #30 grams (Proctozone-HC) lidocaine 4 % topical patch 1 patch transdermal DAILY PRN 01/01/25 (Lidocaine Pain Relief) local pain 30 days #30 ea aspirin 81 mg tablet,delayed 81 mg PO DAILY #30 tabs 03/15/25 release atenolol 50 mg tablet 50 mg PO DAILY #0 tabs 03/15/25 atorvastatin 80 mg tablet 80 mg PO BEDTIME #0 tabs 03/15/25 carisoprodol 350 mg tablet 350 mg PO QID #120 tabs 03/15/25 hydroxyzine HCl 25 mg tablet 25 mg PO BEDTIME #14 tabs 03/15/25 mirtazapine 15 mg tablet 15 mg PO BEDTIME #30 tabs 03/15/25 sennosides 8.6 mg-docusate sodium 1 tab PO BID PRN Constipation #60 03/15/25 50 mg tablet (Senna Plus) tabs tamsulosin 0.4 mg capsule 0.4 mg PO BEDTIME #30 caps 03/15/25 Mental Status Exam Mental Status Exam Narrative: Appearance: thin, wearing hospital gown, fair hygiene, in NAD Behavior: overly friendly Psychomotor: no agitation or retardation noted Speech: clear, normal rate/rhythm/volume, spontaneous TP: linear TC:feeling better, no particular complaint Mood: can be better Affect: overtly bright, non labile, much brighter than reported mood. SI: pt presents as future oriented, brighter affect, does report when asked directly suicidal ideation but no plan or intent. HI: none VH/AH: none Delusions: none Insight/judgment: poor x 2. memory/cog: alert, oriented x 3. ACL 5.5 Data Data Completed and Pending Completed studies during hospitalization [Text1]: 03/13/25 11:15 Urine Color Yellow Urine Appearance Turbid Urine pH >= 9.0 Ur Specific [place] 1.015 Urine Protein Negative Urine Glucose (UA) Negative Urine Ketones Negative Urine Blood Negative Urine Nitrite Negative Ur Leukocyte Esterase Negative DS: Summary Hospital Course Hospital Course: Patient is a 69 year old male with hx of history of adjustment disorder who was brought in by ambulance to ER due to suicidal ideation after having a panic attack at home. Per crisis report, patient was brought into ER secondary to a panic attack at home and endorsing SI. Patient reported he has suicidal to get in this place . He reports frequent panic attacks. Denies HI/VH/AH. Patient demanding during triage. Patient was discharged from on 01/02/2025. Patient declined medications and referrals to outpatient providers upon discharge from the unit. He endorses suicidal ideation with a plan to drive his motorcycle into a guard rail or off a bridge. He reports auditory hallucinations of a Danuta Barrera song . No reported history of suicide attempts or self-injurious behavior. Has a therapist through [email or web address]. Utox positive for benzodiazepines, cannabis and buprenorphine. Patient reports using marijuana daily. During admission assessment, patient presents alert and oriented x3. Calm and cooperative. Patient reports feeling okay ; patient stated, I had to say I'm suicidal to get in here. I do have panic attacks. I wouldn't hurt myself or kill myself. I have too much to live for. I have my son and my grandson. I just want help with my cancer treatment. I was supposed to get 7 chemo treatments but only got 5 . Patient reports he would like someone to help him contact the [employer] . Patient reported that he lied about suicidal ideation so that he would be admitted to the hospital. Patient encouraged to contact his outpatient providers regarding his cancer treatment. Patient denies SI/HI/VH/AH. Denies history of SA/SIB. Patient reports daily marijuana use. Denies any other substance use. He reports being medication compliant. Patient currently denies acute psychiatric symptoms. Past Psychiatric History: hosps: 1[place]2 prior [place] [facility] [place]; M3 12/2024. M3 01/2025. SA: denies SIB: denies outpt: therapist at [facility]. dr. cardenas, his PCP, does his meds aside from suboxone, including soma and valium. Medical Evaluation Reviewed: Yes HOSPITAL COURSE On the unit, pt was admitted on a CV and placed on 15 minutes checks for safety. Pt presented with an overly bright affect, no congruent with reported mood. He denied SI/HI. He complaint about need to have more supports and help at home. However, after obtaining collateral information it was clear that patient has several resources in the community including outpatient case manager working with him in terms of finding new refrigerator. At some point a bed was delivered to him but he declined. He had declined referrals to psychiatric providers during both admission to . He reported this time around he was open. It was pointed out to him that his difficulty had more to do with help seeking-help rejecting interaction, lack of accountability/lack of insight into his decisions have consequences. He did not appear depressed nor suicidal. On the unit, he had one incident of inappropriate sexualized comment to female staff, which has been an issue outpatient with some of the home services. We discussed appropriate boundaries and he was able to have more appropriate behaviors while on the unit. Only on the day of discharge, he again reported feeling very depressed, although all other clinical signs did not indicate this (he was seen smiling and socializing, presenting as very future oriented). He was encouraged to continue outpatient treatment as inpatient admission prevent him from actually addressing what is going on in terms of interpersonal dynamics, inability to see other peoples needs. He tried to kept different supports in the community from communicating from each other and reported he did not have any help when in fact this has been offered to him and delivered but they declined. He is strongly advice to consider this time around to follow up with outpatient providers. Cognitive and memory assessment were completed while on the unit. He scored high on ACL 5.5 showing very minimal cognitive declined. His no shows outpatient are not related to memory problems but complex dynamic of help seeking and help rejecting tendencies. There were no signs of psychosis or delusions. He was started on remeron 15mg po qhs. Status at Discharge Cognitive/behavioral status at discharge: Pt presents as future oriented. No SI/HI. No signs of psychosis or delusions. sleeping and eating well. Overall status at discharge: patient is back to baseline Time Spent with Patient Time attestation: Total time managing care of this patient today __45__ minutes. Time spent: Greater than 30 minutes Discharge Plan Discharge Anticipated Discharge Date/Time: 03/15/25 10:47 Patient Disposition: Home, Self-Care Discharge Diagnosis: PD Referrals: Didi Hays (Therapist) [Other] - 03/18/25 9:30 am Referral Note: You will see Didi on Mar 18 at 9:30AM. If you need to cancel or reschedule the appointment please call the number listed. Tha Mckeon (BOOK CRITIC) [Other] - 03/18/25 10:15 am Referral Note: You will see Karan Mar 18 at 10:15 AM. If you need to cancel or reschedule the appointment please call the number listed. Randy Elise MD [Physician, Internal Medicine] - 03/28/25 4:00 pm Referral Note: You will see Dr. Elise on Mar 28 at 4:00pm. If you need to cancel or reschedule the appointment please call the number listed Discharge Medications: New carisoprodol 350 mg Tablet 350 mg PO QID Qty: 120 0RF atorvastatin 80 mg Tablet 80 mg PO BEDTIME Qty: 0 0RF aspirin 81 mg Tablet,Delayed Release (Dr/Ec) 81 mg PO DAILY Qty: 30 0RF tamsulosin 0.4 mg Capsule 0.4 mg PO BEDTIME Qty: 30 0RF hydroxyzine HCl 25 mg Tablet 25 mg PO BEDTIME Qty: 14 0RF atenolol 50 mg Tablet 50 mg PO DAILY Qty: 0 0RF Protocol: Hold for SBP/HR < HOLD for SBP < : 90 HOLD for HR < : 60 sennosides-docusate sodium [Senna Plus] 8.6-50 mg Tablet 1 tab PO BID PRN (Reason: Constipation) Qty: 60 0RF mirtazapine 15 mg Tablet 15 mg PO BEDTIME Qty: 30 0RF Continued atorvastatin 80 mg tablet 80 mg PO BEDTIME atenolol 50 mg tablet 50 mg PO DAILY buprenorphine-naloxone [Suboxone] 4-1 mg film 1 film sublingual DAILY hydrocortisone [Proctozone-HC] 2.5 % Cream With Perineal Applicator 1 appl OR BID PRN (Reason: Hemorrhoids) 30 Days Qty: 30 0RF lidocaine [Lidocaine Pain Relief] 4 % Adhesive Patch,Medicated 1 patch transdermal DAILY PRN (Reason: local pain) 30 Days Qty: 30 0RF Protocol: Apply to: Apply to: affected areas sennosides [senna] 8.6 mg tablet 17.2 mg PO DAILY PRN (Reason: constipation) Discontinued carisoprodol 350 mg tablet 350 mg PO QID PRN (Reason: pain) tamsulosin 0.4 mg capsule 0.4 mg PO BEDTIME amlodipine 10 mg tablet 10 mg PO DAILY hydroxyzine HCl 25 mg Tablet 25 mg PO DAILY PRN (Reason: mild anxiety) 30 Days Qty: 30 0RF aspirin 81 mg Tablet,Delayed Release (Dr/Ec) 81 mg PO DAILY Discharge Orders: Discharge Order (Routine); Ordered 03/15/25 Ordered By: Emi Schaefer Diet: Regular diet Activity on Discharge: As tolerated Stand Alone Forms: Patient Portal Discharge page, Community Support Print Language: Samoan Care Plan Goals: 1. Maintain mood 2. No SI/HI 3. no self harm or harm to other Health Concerns: Follow up with PCP- amlodipine has been stopped. Plan of Treatment: 1. Take medications as prescribed 2. Go to ED or call 911 in event of emergency Assessment: Pt with brighter affect. No signs of SI/HI. Sleeping and eating well. help seeking-help rejecting dynamics, future oriented. No aggression towards self or others.
== END 2025-03-15 11:16 | disposition home or self-care (01) | DRG 883 ==
LOC: HO.ED 03-06 15:38 → HO.PGERI 03-06 16:23
PROVIDERS: Registered Nurse Emergency; Admitting Provider Social Worker; Emergency Provider Emergency Medicine; PCP Internal Medicine; Visit Provider Social Worker
DX: F60.9 Personality disorder, unspecified (principal); R45.851 Suicidal ideations; F11.20 Opioid dependence, uncomplicated; Z20.822 Contact with and (suspected) exposure to COVID-19; Z79.82 Long term (current) use of aspirin; Z79.899 Other long term (current) drug therapy
CPT/HCPCS: 36415; 80053; 80061; 80143; 80179; 80307; 81003; 82607; 82746; 83036; 84443; 85025; 87637; 93005; 99285; S9485

== ENCOUNTER 2025-03-06 14:54 | Outpatient (BNV) | payer MEDICARE, SELFPAY | END 2025-03-06 16:02 | PROVIDERS: Admitting Provider Social Worker; Emergency Provider Emergency Medicine; PCP Internal Medicine; Visit Provider Internal Medicine Cardiovascular Disease | DX: Z13.6 Encounter for screening for cardiovascular disorders (principal) | CPT/HCPCS: 93010 ==

== ENCOUNTER 2025-03-06 14:54 | Outpatient (BNV) | payer MEDICARE, SELFPAY | END 2025-03-15 08:45 | PROVIDERS: Admitting Provider Social Worker; Emergency Provider Emergency Medicine; PCP Internal Medicine; Visit Provider Internal Medicine Cardiovascular Disease | DX: R00.2 Palpitations (principal) | CPT/HCPCS: 93010 ==

== ENCOUNTER → 2025-03-06 14:54 | Outpatient (BNV) | payer MEDICARE, SELFPAY | PROVIDERS: Admitting Provider Social Worker; Emergency Provider Emergency Medicine; PCP Internal Medicine; Visit Provider Social Worker | DX: F60.9 Personality disorder, unspecified (principal); F11.21 Opioid dependence, in remission | CPT/HCPCS: 90792; 99231; 99232 ==